=== PATIENT | male | born 1940 | race Caucasian/White ===

== ENCOUNTER 2018-01-30 04:12 | Emergency (ER) | payer MEDICARE, OTHER, SELFPAY ==
[2018-01-30] VITALS (7 sets, daily range): BP systolic 110–142; BP diastolic 55–78; PULSE 53–70; RESP 13–17; TEMP 36.4; O2SAT 97–99; BMI 25.7
--- NOTE | 2018-01-30 04:29 | ED.CHESTPAIN ---
HPI - Chest Pain General Chief Complaint: Chest Pain Stated Complaint: CHEST PAIN Time Seen by Provider: 01/30/18 04:13 Source: patient and family Mode of arrival: ambulatory Limitations: no limitations History of Present Illness HPI narrative: 77-year-old male with history of coronary artery disease status post 3 stents in May at [facility] presents with some left-sided chest discomfort that started while at rest at 9:00 p.m.. It was a vague in lingering pain without provocation or palliation and the patient went to sleep at about 11 30 and woke up at 3:15 a.m. with slightly more intense pain in left side of his chest. He denies associated symptoms such as dizziness or lightheadedness nor diaphoresis, nausea or vomiting. He describes the pain as a pressure and it feels like the pain he had when he was flown from [place] to [facility] in the fall. MD complaint: chest pain Onset (ago): hour(s) Duration: intermittent Onset: during rest Pain location: left chest Severity: moderate Quality: tightness Pain radiation: none Relieving factors: nothing Exacerbating factors: nothing Treatments prior to arrival chest pain: nitroglycerin Related Data Home Medications Medication Instructions Recorded Confirmed [PS] #0 09/22/12 Aspir-81 81 01/30/18 Previous Rx's Medication Instructions Recorded testosterone [Vogelxo] 0 TP QDAY #113 gm 09/18/16 omeprazole 20 mg PO BID #180 tab 11/04/16 triamterene-hydrochlorothiazid 1 tab PO QDAY #90 tab 12/10/16 Allergies Allergy/AdvReac Type Severity Reaction Status Date / Time hyaluronate sodium, Allergy Mild Verified 01/30/18 04:35 stabilized HYLAN POLYMERS A & B Allergy Mild INFLAMMATION Uncoded 01/30/18 04:20 OF THE KNEES Review of Systems Review of Systems All systems reviewed & are unremarkable except as noted in HPI and below Constitutional Denies chills, Denies fever(s), Denies lethargy and Denies weakness Eyes Denies change in vision, Denies eye discharge, Denies irritation and Denies loss of vision ENT Ears, Nose, Mouth, and Throat: Denies change in voice, Denies neck pain and Denies sore throat Cardiovascular Reports chest pain, Denies irregular heart rhythm, Denies lightheadedness, Denies palpitations, Denies dyspnea, Denies dyspnea on exertion and Denies orthopnea Respiratory Denies cough, Denies dyspnea, Denies dyspnea on exertion and Denies wheezing Gastrointestinal Gastrointestinal: Denies abdominal pain, Denies change in bowel habits, Denies diarrhea, Denies nausea and Denies vomiting Genitourinary Denies hematuria, Denies flank pain, Denies urinary incontinence and Denies urinary urgency Musculoskeletal Denies neck pain Integumentary/Breasts Denies pruritus, Denies erythema, Denies rash and Denies wounds Neurologic Denies confusion, Denies loss of vision and Denies weakness Psychiatric Denies anxiety, Denies confusion, Denies depression, Denies homicidal ideation and Denies suicidal ideation Endocrine Denies palpitations Hematologic/Lymphatic Denies easy bruising Allergic/Immunologic Denies wheezing PFSH Surgical History Status post appendectomy Status post hernia repair Exam Narrative Exam Narrative: 77-year-old male resting, mildly uncomfortable Initial Vital Signs Initial Vital Signs: Vital Signs Temperature 97.6 F 01/30/18 04:20 Pulse Rate 59 L 01/30/18 04:20 Respiratory Rate 13 01/30/18 04:20 Blood Pressure 126/57 H 01/30/18 04:20 Pulse Oximetry 98 01/30/18 04:20 Const General: cooperative and well developed Nutritional Appearance: well nourished Orientation: alert, awake, oriented x3 and not confused [facility] Head: normocephalic and atraumatic Ears: external ears normal and TM's normal bilaterally Nose: external nose normal and No nasal discharge Face and sinus: sinuses nontender, face symmetric, no sinus tenderness and No dry mucous membranes Mouth: oral mucosae normal and moist mucous membranes Teeth and gingiva: dentition normal Throat: tonsils normal and uvula midline Eyes General: appearance normal, both eyes and all related structures Eyelids: eyelids normal Conjunctivae: conjunctivae normal Sclera: sclerae normal Pupils: PERRL EOM: EOM intact bilaterally Neck Neck: normal visual inspection, trachea midline, No lymphadenopathy, No midline deformity and No JVD Lymphatic: No lymphedema Chest Chest: normal inspection of the chest Resp Effort & Inspection: normal respiratory effort, able to speak in complete sentences, no respiratory distress and no use of accessory muscles Auscultation: clear to auscultation bilaterally, no rales, no rhonchi and no wheezes Cardio Rate: bradycardic Rhythm: regular rhythm Heart Sounds: no click, no gallops, no murmurs and no rubs Pulses: normal peripheral pulses GI Inspection: non-distended Palpation: soft, no hepatosplenomegaly, No guarding, No pulsatile mass and No tender Auscultation: normal bowel sounds Back/Spine/Pelvis Back: No CVA tenderness Cervical Spine: cervical ROM normal and No pain with cervical ROM Thoracic/Lumbar Spine: thoracic and lumbar spine normal to inspection Skin General: no rashes or lesions noted, No jaundice and No petechiae Extrem General: full ROM, no clubbing, cyanosis or edema, no pedal edema and no calf tenderness Course Orders Ordered: Discontinued Medications Aspirin (Aspirin Chew) 324 mg PO NOW ONE Stop: 01/30/18 04:30 Last Admin: 01/30/18 04:55 Dose: 324 mg Heparin Sodium (Porcine) (Heparin) 5,000 unit 60 unit/kg (5000 unit) IV NOW ONE Stop: 01/30/18 06:31 Last Admin: 01/30/18 07:15 Dose: 5,000 unit Sodium Chloride (Normal Saline 0.9%) 1,000 mls @ 150 mls/hr IV CONT DIANN Last Admin: 01/30/18 04:55 Dose: 150 mls/hr Heparin Sodium/Dextrose (Heparin Drip) 25,000 unit in 500 mls @ 20.14 mls/hr IV CONT DIANN; Protocol Last Admin: 01/30/18 07:16 Dose: 12 units/kg/hr, 20.14 mls/hr Nitroglycerin (Nitrostat) 0.4 mg SL [id number] PRN PRN Reason: Chest Pain Last Admin: 01/30/18 04:59 Dose: 0.4 mg Reevaluation(s) Reevaluation #1: Patient states left-sided chest pressure starting to increase. Nitro and aspirin ordered. Repeat EKG ordered. Reevaluation #2: Patient reports some improvement with nitro, stating he is pretty much pain free Time: 05:09 Reevaluation #3: Patient pain-free. Heparin was and drip initiated. Ambulance to arrive at 7:20 a.m. Consultations Consultation #1: Dr. Esquivel ([facility]) happy to accept patient in transfer Vital Signs - 8 hr 01/30/18 04:20 01/30/18 04:59 01/30/18 05:25 Temperature 97.6 F Pulse Rate 59 L 70 55 L Respiratory Rate 13 Blood Pressure 126/57 H 110/58 L 115/55 L Blood Pressure [Left Arm] Pulse Oximetry 98 01/30/18 06:33 Temperature Pulse Rate 62 Respiratory Rate 14 Blood Pressure Blood Pressure [Left Arm] 136/57 H Pulse Oximetry 99 MDM - Chest Pain Differential Diagnosis Likely unstable angina pectoris, atypical chest pain, st elevation myocardial infarction, chest pain and biliary colic Medical Records Data Attestation: I reviewed the patient's medical records. Lab Data Attestation: I reviewed the patient's lab results. Result diagrams: 01/30/18 04:30 01/30/18 04:30 Lab Results 01/30/18 01/30/18 01/30/18 Range/Units 04:30 04:30 04:30 WBC 5.2 (4.5-11.0) X10^3/uL RBC 4.43 L (4.5-5.9) X10^6/uL Hgb 14.1 (13.5-17.5) g/dL Hct 40.4 L (41-53) % MCV 91.1 (80-100) fL MCH 31.9 (26-34) PG MCHC 35.0 (30-36) % RDW 13.4 (11.6-14.8) % Plt Count 152 (150-400) X10^3/uL Neut % (Auto) 61.8 (50-75) % Lymph % (Auto) 24.2 L (25-40) % [place] % (Auto) 8.6 (3-14) % Eos % (Auto) 4.5 H (2-4) % Baso % (Auto) 0.9 (0-2) % Neut # (Auto) 3200 (8602-1612) /uL PT 11.8 (10.1-12.7) SECONDS INR 1.1 (0.9-1.3) APTT 33 (26.4-36.2) SECONDS Sodium 142 (137-145) mmol/L Potassium 3.8 (3.4-5.1) mmol/L Chloride 104 (98-107) mmol/L Carbon Dioxide 27 (22-32) mmol/L BUN 12 (9-20) mg/dL Creatinine 0.60 L (0.66-1.25) mg/dL Estimated GFR > 60.0 (>60) mL/min BUN/Creatinine Ratio 20.0 (6-22) Glucose 108 (80-110) mg/dL Calcium 9.6 (8.4-10.2) mg/dL Total Bilirubin 0.6 (0.2-1.3) mg/dL AST 26 (17-59) IU/L ALT 33 (21-72) IU/L Alkaline Phosphatase 51 (38-126) U/L Total Creatine Kinase 157 (55-170) U/L CK-MB (CK-2) 3.54 H (<2.37) ng/mL CK-MB (CK-2) Rel Index 2.3 (1.5-5.0) % Troponin I < 0.012 (0.01-0.034) ng/mL Total Protein 6.8 (6.3-8.2) g/dL Albumin 4.2 (3.5-5.0) g/dL Globulin 2.6 (1.7-4.1) g/dL Albumin/Globulin Ratio 1.6 (1.0-2.8) Lipase 23 (23-300) U/L ECG Data Attestation: I personally reviewed and interpreted this ECG as follows: Prior ECG tracings: not available for review Interpretation: EKG1: Normal sinus rhythm with occasional PVCs. EKG2: Sinus rhythm 64, inverted Ts in III. Slight change in ST segment in lateral leads EKG3: unchanged Core Measures AMI core measures followed: Yes [facility] Narrative Medical decision making narrative: 77-year-old male with history of coronary artery disease presents with left-sided chest pain which started at rest and is reminiscent of prior pain that led to 3 stents. He is having increasing episodes of worsening pain while at rest. Chest pain largely has been controlled by nitro. EKGs do not show any ST elevations or obvious ischemia. First troponin normal. Call to Cardiology at [facility] and they agree this is a concerning story particularly given his cath results in May Critical Care Time Critical Care Time: Yes Total Critical Care Time: 35 Attestation: The high probability of a clinically significant, sudden or life threatening deterioration of the [cardiac] system(s) required my full and direct attention, intervention and personal management. The aggregate critical care time was [35] minutes. This time is in addition to time spent performing reported procedures but includes the following: [x] Data Review and interpretation [x] Patient assessment and monitoring of vital signs [x] Documentation [x] Medication orders and management Discharge Plan Departure Patient Disposition: [facility] Clinical Impression: ACS (acute coronary syndrome) Discharge Date/Time: 01/30/18 08:17 Interventions: ED Discharge Assessment Last Done: 01/30/18 07:30 Prescriptions: No Action [PS] Qty: 0 RF: 0 testosterone [Vogelxo] 1 % gel in metered-dose pump TP QDAY Qty: 113 RF: 0 omeprazole 20 MG capsule,delayed release(DR/EC) 20 mg PO BID Qty: 180 RF: 0 triamterene-hydrochlorothiazid 37.5 MG/25 MG tablet 1 tab PO QDAY Qty: 90 RF: 1 Aspir-81 tablet 81 RF: 0 Stand Alone Forms: Work/School Restrictions
--- NOTE | 2018-01-30 04:30 | DI.RAD.S_ITS ---
PROCEDURE: XR CHEST 1V INDICATIONS: Chest Pain TECHNIQUE: One view of the chest was acquired. COMPARISON: [facility]per, CHEST 2 VIEW, 04/25/2013, 13:44. FINDINGS: Surgical changes and devices: None. Lungs and pleura: No pleural effusions or pneumothorax. Lungs are clear. Mediastinum: Mediastinal contours appear normal. Heart size is normal. Bones and chest wall: No suspicious bony lesions. Overlying soft tissues appear unremarkable. IMPRESSION: No acute disease Dictated by: Lul Sharma M.D. on 01/30/2018 at 9:07 Approved by: Lul Sharma M.D. on 01/30/2018 at 9:08
[2018-01-30 04:54] LABS: Add Manual Diff / Slide Review NO; Basophils Percent Auto 0.9 % (0-2); Eosinophils Percent Auto 4.5 % (2-4); Hematocrit 40.4 % (41-53); Hemoglobin 14.1 g/dL (13.5-17.5); Lymphocytes Percent Auto 24.2 % (25-40); Mean Corpuscular Hemoglobin 31.9 PG (26-34); Mean Corpuscular Volume 91.1 fL (80-100); Monocytes Percent Auto 8.6 % (3-14); Neutrophils Absolute Auto 3200 /uL (3000-5900); Neutrophils Percent Auto 61.8 % (50-75); Platelet Count 152 X10^3/uL (150-400); Red Blood Cell Count 4.43 X10^6/uL (4.5-5.9); Red Cell Distribution Width 13.4 % (11.6-14.8); White Blood Cell Count 5.2 X10^3/uL (4.5-11.0)
[2018-01-30] MEDS: ASPIRIN 81 MG TAB 324 MG PO (04:55)
[2018-01-30] MEDS: SODIUM CHLORIDE 0.9% 1,000 ML 150 ML IV (04:55)
[2018-01-30] MEDS: NITROGLYCERIN 0.4 MG SL TAB SL (04:59)
[2018-01-30 05:04] LABS: Alanine Aminotransferase 33 IU/L (21-72); Albumin 4.2 g/dL (3.5-5.0); Albumin Globulin Ratio 1.6 (1.0-2.8); Alkaline Phosphatase 51 U/L (38-126); Aspartate Aminotransferase 26 IU/L (17-59); Bilirubin Total 0.6 mg/dL (0.2-1.3); Blood Urea Nitrogen 12 mg/dL (9-20); Calcium 9.6 mg/dL (8.4-10.2); Carbon Dioxide 27 mmol/L (22-32); Chloride 104 mmol/L (98-107); Creatine Kinase 157 U/L (55-170); Estimated Glomerular Filt Rate > 60.0 mL/min (>60); Globulin 2.6 g/dL (1.7-4.1); Glucose 108 mg/dL (80-110); HEMOLYSIS < 15 (0-50); Lipase 23 U/L (23-300); Potassium 3.8 mmol/L (3.4-5.1); Sodium 142 mmol/L (137-145); Total Protein 6.8 g/dL (6.3-8.2)
[2018-01-30 05:19] LABS: CKMB % Relative Index 2.3 % (1.5-5.0); Creatine Kinase MB 3.54 ng/mL (<2.37)
[2018-01-30 05:21] LABS: Troponin I < 0.012 ng/mL (0.01-0.034)
[2018-01-30 06:44] LABS: INR 1.1 (0.9-1.3); Prothrombin Time 11.8 SECONDS (10.1-12.7)
[2018-01-30 06:47] LABS: PTT Partial Thromboplastin Tim 33 SECONDS (26.4-36.2)
[2018-01-30] MEDS: HEPARIN 5,000 UNIT/ML VIAL 5000 UNIT IV (07:15)
[2018-01-30] MEDS: HEPARIN DRIP 25,000 UNIT/500 ML IV.SOLN 20.14 UNIT IV (07:16)
--- NOTE | 2018-04-11 01:42 | PC.NURSE ---
Heparin and normal saline continued on transport
== END 2018-01-30 08:17 | disposition short-term general hospital (02) ==
PROVIDERS: Emergency Provider Emergency Medicine
DX: I24.9 Acute ischemic heart disease, unspecified (principal)
CPT/HCPCS: 36591; 71045; 80053; 82550; 82553; 83690; 84484; 85025; 85610; 85730; 93005; 96361; 96365; 99283; 99285; J1644

== ENCOUNTER → 2019-07-28 09:33 | Outpatient (CLI) | payer MEDICARE, OTHER, SELFPAY ==
[2019-07-28 11:07] LABS: BUN Creatinine Ratio 32.2 (6-22); Blood Urea Nitrogen 29 mg/dL (9-20); Calcium 10.3 mg/dL (8.4-10.2); Carbon Dioxide 31 mmol/L (22-32); Chloride 101 mmol/L (98-107); Estimated Glomerular Filt Rate > 60.0 mL/min (>60); Glucose 97 mg/dL (80-110); HEMOLYSIS < 15 (0-50); Potassium 4.8 mmol/L (3.4-5.1); Sodium 140 mmol/L (137-145)
== END ==
PROVIDERS: Visit Provider Internal Medicine Cardiovascular Disease
DX: I10 Essential (primary) hypertension (principal)
CPT/HCPCS: 36415; 80048

== ENCOUNTER → 2019-08-11 09:08 | Outpatient (CLI) | payer MEDICARE, OTHER, SELFPAY ==
--- NOTE | 2019-08-11 09:13 | DI.RAD.S_ITS ---
PROCEDURE: XR LUMBAR SPINE 2-3V INDICATIONS: right sciatic pain TECHNIQUE: 3 views of the lumbar spine were acquired. COMPARISON: None. FINDINGS: Bones: 5 nonrib-bearing, lumbar type vertebral bodies are seen. No displaced fractures are seen. No suspicious lytic or blastic lesions are seen. Mild retrolisthesis is seen at L1-L2 and at L2-L3. Minimal retrolisthesis is seen at L3-L4. Minimal anterolisthesis is seen at L4-L5. Grade 1 anterolisthesis is seen at L5-S1, with associated bilateral pars defects. Moderate disc space narrowing is seen at L2-L3 and L5-S1. Mild disc space narrowing is seen elsewhere. Lower lumbar spine facet arthropathy is seen. Soft tissues: Overlying bowel gas pattern is normal. No suspicious soft tissue calcifications. Atherosclerotic calcification is noted. Right groin sutures are seen. IMPRESSION: Degenerative changes are seen, which are most prominent at L5-S1. At this level, there is grade 1 anterolisthesis, with bilateral L5 pars defects. Moderate loss of disc height is seen. Dictated by: Carlos Elkins M.D. on 08/11/2019 at 8:46 Approved by: Carlos Elkins M.D. on 08/11/2019 at 8:48
== END ==
PROVIDERS: PCP Internal Medicine; Visit Provider Registered Nurse
DX: M47.816 Spondylosis without myelopathy or radiculopathy, lumbar region (principal); M47.817 Spondylosis without myelopathy or radiculopathy, lumbosacral region; M48.061 Spinal stenosis, lumbar region without neurogenic claudication; M43.17 Spondylolisthesis, lumbosacral region; M54.41 Lumbago with sciatica, right side
CPT/HCPCS: 72100; 99214

== ENCOUNTER 2019-12-27 00:38 | Inpatient (IN) | payer MEDICARE, OTHER, SELFPAY ==
[2019-12-27] VITALS (34 sets, daily range): BP systolic 121–177; BP diastolic 50–81; PULSE 14–85; RESP 12–21; TEMP 36.2–37.2; O2SAT 93–100; BMI 25.4
--- NOTE | 2019-12-27 | PATH_ITS ---
[facility] Accession Number: [id number] . 01 Material submitted: . small bowel - SEGMENT SMALL BOWEL . 01 Clinical history: . POSSIBLE SOB . 02 Diagnosis: Small Bowel, Resection: Acute ischemia with transmural congestion. Negative for dysplasia and malignancy. Resection margins appear viable. . MRV 12/29/2019 1529 Local . 02 Electronically signed: . Eula Tellez MD, Pathologist NPI- [id number] . 01 Gross description: . Received in formalin, labeled segment small bowel, is an unoriented segment of small bowel (length-9.2 cm, resection margins #1 and #2 diameters-2.3 cm) with attached mesentery (up to 2.3 cm in depth). The resection margins are received stapled. The serosa is adams and focally dark red-brown, smooth and shiny. The mucosa is adams and focally congested with normal folds. No nodules, masses or lesions are identified. The resection margins are inked blue. Section code: (A1) resection margin #1, longitudinal representatives; (A2) resection margin #2, longitudinal representatives; (A3-A6) solar sales representative serial sections submitted from resection margin #1 to #2. ([id number]) /MRV 12/28/2019 1003 Local . 02 Pathologist provided ICD-10: K55.019 . 02 CPT . 521172 Performed at: 01 [facility] [address] [place] [address], [place], [place] [id number] MD Da Moore MD Phone: [phone] Performed at: 02 [facility] [address] [place], [place] [id number] Alberto Tellez MD Phone: [phone]
--- NOTE | 2019-12-27 00:45 | DI.RAD.S_ITS ---
PROCEDURE: XR ACUTE ABDOMEN SERIES INDICATIONS: Abdominal pain TECHNIQUE: One view chest and two views of the abdomen were acquired. COMPARISON: [facility], CR, XR CHEST 1V, 01/30/2018, 4:35. [facility], CT, CT ABDOMEN PELVIS W CON, 12/27/2019, 1:21. FINDINGS: Surgical changes and devices: None. Chest: Lungs are clear. Heart size is normal. No pleural effusions. No pneumoperitoneum. Abdomen: There is mild gaseous distention of a few small bowel loops, measuring up to 3.5 cm. A few small bowel air-fluid levels are demonstrated within the lower abdomen. No suspicious calcifications. Bones: No suspicious bony lesions. IMPRESSION: 1. Mild distention of small bowel loops with air-fluid levels suggestive of small bowel obstruction. Recommend correlation with subsequent CT. Dictated by: Da River M.D. on 12/27/2019 at 9:41 Approved by: Da River M.D. on 12/27/2019 at 9:45
--- NOTE | 2019-12-27 01:07 | ED_ITS ---
HPI - Abdominal Pain General Chief Complaint: Abdominal Pain Stated Complaint: Poss SBO Time Seen by Provider: 12/27/19 00:38 Source: EMS Mode of arrival: EMS Limitations: no limitations History of Present Illness HPI narrative: 79M nonsmoker with cardiac history presents with the chief complaint of severe, rather sudden abdominal pain this evening at about 930pm. He states he does have a history of what he thinks are bowel obstructions. He has had surgery on his abdomen before including a left inguinal hernia and his appendix. He states he has had nausea and vomiting and has been unable to pass gas. His pain is significantly worse when he moves and improves with rest. He was evaluated on scene by paramedics on [place] and given fentanyl and Zofran. Airlift was activated to transport him here for evaluation. He denies any fever or chills. He denies any recent injuries, falls or trauma. MD complaint: abdominal pain Onset (ago): hour(s) Pain Consistency: constant Location: diffuse Severity: severe Quality: cramping and aching Radiation: none Relieving factors: rest Exacerbating factors: movement Associated symptoms: nausea and vomiting Related Data Home Medications Medication Instructions Recorded Confirmed [PS] #0 09/22/12 09/07/19 Aspir-81 81 01/30/18 09/07/19 lisinopril 10 mg tablet 10 mg PO DAILY 08/11/19 09/07/19 metoprolol tartrate 25 mg tablet 12.5 mg PO DAILY tab 08/11/19 09/07/19 Previous Rx's Medication Instructions Recorded triamterene-hydrochlorothiazid 1 tab PO QDAY #90 tab 12/10/16 diclofenac sodium 1 % topical gel 2 g TOP QID #100 gram MDD 8 gm 08/11/19 Allergies Allergy/AdvReac Type Severity Reaction Status Date / Time hyaluronate sodium, Allergy Mild Verified 12/27/19 00:47 stabilized HYLAN POLYMERS A & B Allergy Mild INFLAMMATION Uncoded 12/27/19 00:47 OF THE KNEES Review of Systems Constitutional Constitutional: Denies chills, Denies fatigue, Denies fever(s), Denies frequent falls, Denies lethargy and Denies weakness Eyes Eyes: Denies change in vision, Denies eye discharge, Denies irritation and Denies loss of vision ENT Ears, Nose, Mouth, and Throat: Denies change in voice, Denies dizziness, Denies neck pain, Denies sore throat and Denies throat swelling Cardiovascular Cardiovascular: Denies chest pain, Denies irregular heart rhythm, Denies lightheadedness, Denies palpitations, Denies dyspnea, Denies dyspnea on exertion and Denies orthopnea Respiratory Respiratory: Denies cough, Denies dyspnea, Denies dyspnea on exertion and Denies wheezing Gastrointestinal Gastrointestinal: Reports abdominal pain, Denies change in bowel habits, Denies diarrhea, Reports nausea and Reports vomiting Musculoskeletal Musculoskeletal: Denies neck pain and Denies numbness Integumentary/Breasts Skin/Breast: Denies pruritus, Denies erythema, Denies rash and Denies wounds Neurologic Neurologic: Denies behavioral changes, Denies confusion, Denies dizziness, Denies frequent falls, Denies loss of vision, Denies numbness and Denies weakness Psychiatric Psychiatric: Denies anxiety, Denies behavioral changes, Denies confusion, Denies depression, Denies homicidal ideation and Denies suicidal ideation Endocrine Endocrine: Denies fatigue, Denies flushing and Denies palpitations Hematologic/Lymphatic Hematologic/Lymphatic: Denies easy bruising Allergic/Immunologic Allergic/Immunologic: Denies urticaria, Denies throat swelling and Denies wheezing Patient History Medical History Facet arthropathy, 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 Well- nourished, well-developed patient, in mild distress. HEAD: Atraumatic. Normocephalic. EYES: Pupils equal round and reactive. Extraocular motions intact. No scleral icterus. No injection or drainage. ENT: Nose without bleeding, purulent drainage. Throat without erythema, tonsillar hypertrophy or exudate. Airway patent. NECK: Trachea midline. Non tender CARDIOVASCULAR: Regular rate and rhythm without murmurs, gallops, or rubs. RESPIRATORY: Clear to auscultation. Breath sounds equal bilaterally. No wheezes, rales, or rhonchi. GASTROINTESTINAL: Abdomen soft, significantly tender with a palpable ?bulge? and right lower quadrant, localized guarding, nondistended. EXTREMITIES: No edema or joint tenderness. BACK: Nontender without deformity or crepitance. No flank tenderness. NEURO: AOx3. SKIN: No rash or erythema of visible areas Initial Vital Signs Initial Vital Signs: Vital Signs Temperature 97.2 F L 12/27/19 00:43 Pulse Rate 58 L 12/27/19 00:43 Respiratory Rate 16 12/27/19 00:43 Blood Pressure 175/81 H 12/27/19 00:43 Pulse Oximetry 98 12/27/19 00:43 Course Orders Ordered: ED Orders 12/27/19 00:45 XR acute abdomen series Stat 12/27/19 01:24 Complete Blood Count AUTO DIFF Stat Comprehensive Metabolic Panel Stat Lipase Stat 12/27/19 02:11 CT abdomen pelvis w con Stat 12/27/19 02:59 Urine Microscopic Stat Sodium Chloride (Normal Saline 0.9%) 1,000 mls @ 150 mls/hr IV CONT DIANN Last Infusion: 12/27/19 01:21 Dose: 150 mls/hr Documented by: Admin: 12/27/19 01:18 Dose: 150 mls/hr Documented by: RYAN Discontinued Medications Ondansetron HCl (Zofran) 4 mg IV NOW ONE Stop: 12/27/19 00:45 Last Admin: 12/27/19 01:18 Dose: 4 mg Documented by: RYAN Vital Signs Vital signs: Vital Signs - 8 hr 12/27/19 00:43 12/27/19 01:01 12/27/19 01:30 Temperature 97.2 F L Pulse Rate 58 L 64 66 Respiratory Rate 16 17 17 Blood Pressure 175/81 H Blood Pressure [Left Arm] 176/74 H 147/65 H Pulse Oximetry 98 93 94 12/27/19 02:16 12/27/19 02:30 Temperature Pulse Rate 72 64 Respiratory Rate 17 17 Blood Pressure Blood Pressure [Left Arm] 158/70 H 168/70 H Pulse Oximetry 98 94 MDM - Abdominal Pain Lab Data Result diagrams: 12/27/19 01:24 12/27/19 01:24 Labs: Lab Results 12/27/19 12/27/19 12/27/19 Range/Units 01:24 01:24 02:59 WBC 8.6 (4.5-11.0) X10^3/uL RBC 4.49 L (4.5-5.9) X10^6/uL Hgb 14.1 (13.5-17.5) g/dL Hct 40.9 L (41-53) % MCV 91.1 (80-100) fL MCH 31.4 (26-34) PG MCHC 34.5 (30-36) % RDW 13.6 (11.6-14.8) % Plt Count 130 L (150-400) X10^3/uL Neut % (Auto) 84.9 H (50-75) % Lymph % (Auto) 8.9 L (25-40) % [place] % (Auto) 4.5 (3-14) % Eos % (Auto) 1.1 L (2-4) % Baso % (Auto) 0.6 (0-2) % Neut # (Auto) 7300 H (2491-7360) /uL Lymph # (Auto) 800 L (4172-4654) /uL [place] # (Auto) 400 (0-900) /uL Eos # (Auto) 100 (0-450) /uL Baso # (Auto) 100 (0-100) /uL Sodium 137 (137-145) mmol/L Potassium 4.0 (3.4-5.1) mmol/L Chloride 104 (98-107) mmol/L Carbon Dioxide 27 (22-32) mmol/L BUN 21 H (9-20) mg/dL Creatinine 0.77 (0.66-1.25) mg/dL Estimated GFR > 60.0 (>60) mL/min BUN/Creatinine Ratio 27.3 H (6-22) Glucose 145 H (80-110) mg/dL Calcium 9.5 (8.4-10.2) mg/dL Total Bilirubin 0.5 (0.2-1.3) mg/dL AST 27 (17-59) IU/L ALT 20 (<50) IU/L Alkaline Phosphatase 51 (38-126) U/L Total Protein 7.0 (6.3-8.2) g/dL Albumin 4.2 (3.5-5.0) g/dL Globulin 2.8 (1.7-4.1) g/dL Albumin/Globulin Ratio 1.5 (1.0-2.8) Lipase 47 (23-300) U/L Urine RBC None seen (0-5/HPF) Urine WBC None seen (0-5/HPF) Amorphous Sediment 1+ Urine Bacteria None seen (None) Urine Mucus 1+ H (Negative) Ur Culture Indicated? Cult not indicated Point of care testing: Urine Dip Bedside Urine Glucose Negative Bedside Urine Bilirubin - Negative Bedside Urine Ketone + 15 Urine Specific [place] 1.015 Bedside Urine Occult Blood - Negative Bedside Urine pH 6.5 Bedside Urine Protein + 30 Bedside Urine Urobilinogen +/- 1mg Bedside Urine Nitrite - Negative Imaging Data CT scan - abdomen/pelvis: Attestation: I personally reviewed and interpreted this imaging study as follows: My Impression: incisional hernia RLQ with possible SBO Radiologist's Impression: same Discharge Plan Departure Patient Disposition: Admitted as Observation Clinical Impression: Incarcerated incisional hernia Admit Date/Time: 12/27/19 03:16 Admit Provider: Hipolito Montenegro
[2019-12-27] MEDS: ONDANSETRON 4 MG/2 ML INJ IV ×3 (01:18→06:56)
[2019-12-27] MEDS: SODIUM CHLORIDE 0.9% 1,000 ML 150 ML IV (01:18)
[2019-12-27 01:38] LABS: Add Manual Diff / Slide Review NO; Basophils Absolute Auto 100 /uL (0-100); Basophils Percent Auto 0.6 % (0-2); Eosinophils Absolute Auto 100 /uL (0-450); Eosinophils Percent Auto 1.1 % (2-4); Hematocrit 40.9 % (41-53); Hemoglobin 14.1 g/dL (13.5-17.5); Lymphocytes Absolute Auto 800 /uL (1100-4500); Lymphocytes Percent Auto 8.9 % (25-40); Mean Corpuscular HGB Conc 34.5 % (30-36); Mean Corpuscular Hemoglobin 31.4 PG (26-34); Mean Corpuscular Volume 91.1 fL (80-100); Monocytes Absolute Auto 400 /uL (0-900); Monocytes Percent Auto 4.5 % (3-14); Neutrophils Absolute Auto 7300 /uL (1500-7000); Neutrophils Percent Auto 84.9 % (50-75); Platelet Count 130 X10^3/uL (150-400); Red Blood Cell Count 4.49 X10^6/uL (4.5-5.9); Red Cell Distribution Width 13.6 % (11.6-14.8); White Blood Cell Count 8.6 X10^3/uL (4.5-11.0)
[2019-12-27 01:44] LABS: Alanine Aminotransferase 20 IU/L (<50); Albumin 4.2 g/dL (3.5-5.0); Albumin Globulin Ratio 1.5 (1.0-2.8); Alkaline Phosphatase 51 U/L (38-126); Aspartate Aminotransferase 27 IU/L (17-59); BUN Creatinine Ratio 27.3 (6-22); Bilirubin Total 0.5 mg/dL (0.2-1.3); Blood Urea Nitrogen 21 mg/dL (9-20); Calcium 9.5 mg/dL (8.4-10.2); Carbon Dioxide 27 mmol/L (22-32); Chloride 104 mmol/L (98-107); Estimated Glomerular Filt Rate > 60.0 mL/min (>60); Globulin 2.8 g/dL (1.7-4.1); Glucose 145 mg/dL (80-110); HEMOLYSIS < 15 (0-50); Lipase 47 U/L (23-300); Sodium 137 mmol/L (137-145)
--- NOTE | 2019-12-27 02:11 | DI.CT.S_ITS ---
PROCEDURE: CT ABDOMEN PELVIS W CON INDICATIONS: severe right lower quadrant pain, hernia or obstruction? TECHNIQUE: After the administration of intravenous contrast, 5 mm thick sections acquired from the diaphragm to the symphysis. 5 mm coronal and sagittal reformats were acquired. For radiation dose reduction, the following was used: automated exposure control, adjustment of mA and/or kV according to patient size. COMPARISON: None. FINDINGS: Image quality: Excellent. ABDOMEN: Lung bases: There is mild atelectasis. Heart size is normal. There is a small hiatal hernia. Solid organs: There is a lobulated cyst within the left hepatic lobe as well as multiple additional small low-density foci throughout the liver which are too small to characterize but likely represent cysts. There is a calcified gallstone measuring up to 1.8 cm in the gallbladder without associated wall thickening or pericholecystic fluid. Biliary system is non-dilated. Pancreas enhances normally. No peripancreatic fat stranding or fluid collections. No pancreatic duct dilatation. The spleen is normal in size. There is a small nonspecific cystic lesion anteriorly in the spleen measuring up to 2.0 cm. No adrenal nodules. Kidneys demonstrate no hydronephrosis. Focal cortical thinning is demonstrated in the superior pole of the left kidney. Peritoneum and bowel: There is fluid distention of multiple small bowel loops, measuring up to 3.1 cm in diameter with associated air-fluid levels. There is a transition point associated with a right lower quadrant spigelian hernia along the semilunar line lateral to the rectus abdominis muscle. This contains a short segment of small bowel with slight bowel wall thickening and a small amount of free fluid in the hernia sac. Distal to the hernia, small bowel loops are nondistended. A small diverticulum of the descending portion of the duodenum is noted. The colon is normal in caliber and wall thickness. There is colonic diverticulosis without acute diverticulitis. No intraperitoneal free fluid or free air. Nodes and vessels: No retroperitoneal or mesenteric adenopathy by size criteria. Aorta and inferior vena cava are normal in size. Miscellaneous: As noted above, there is a right ventral abdominal wall hernia demonstrated lateral to the rectus abdominis muscle and medial to the external and internal oblique muscles along the semilunar line. Findings are consistent with a spigelian hernia. PELVIS: Genitourinary: Bladder wall thickness is normal. There is mild heterogeneous enlargement of the prostate. Miscellaneous: No inguinal hernias or adenopathy. Bones: No suspicious bony lesions. No vertebral body compression fractures. IMPRESSION: 1. Small bowel obstruction associated with a short herniated segment of small bowel within a right lower quadrant spigelian hernia. Mild bowel wall thickening within the hernia sac associated with a small amount of free fluid is suggestive of bowel incarceration or developing strangulation. Otherwise no intraperitoneal free fluid or free air. No evidence of pneumatosis. 2. Cholelithiasis without acute cholecystitis. Concordant with preliminary interpretation. Dictated by: Da River M.D. on 12/27/2019 at 8:00 Approved by: Da River M.D. on 12/27/2019 at 8:12
[2019-12-27 03:00] LABS: Bacteria Urine None Seen; RBC Urine None Seen (0-5/HPF); WBC Urine None Seen (0-5/HPF)
--- NOTE | 2019-12-27 03:20 | P.HP_ITS ---
History of Present Illness History of Present Illness Date Patient Seen: 12/27/19 Time Patient Seen: 03:20 Chief complaint: Poss SOB Narrative: 79-year-old male presents to the emergency room by air ambulance for acute onset of abdominal pain. He developed a bulge and sharp pain of his right flank over his previous appendectomy incision 6 hours ago. He underwent a CT abdomen pelvis that demonstrates incarcerated small bowel within the hernia and assoicated small bowel obstruction. WBC 9, afebrile. He denies nausea or vomiting. In the emergency room despite pain medication the hernia can not be reduced. Past medical history is significant for coronary artery disease, HTN, has several coronary stents from 3 years ago no active chest pain or shortness of breath. He is not on anticoagulation and a non smoker.. Patient History Medical History Facet arthropathy, lumbar (Chronic) Foraminal stenosis of lumbar region (Chronic) Surgical History Status post appendectomy Status post hernia repair Family & Social History Family History Mother Breast implant removal status Safety & Behavioral: Feels Safe in Current Yes Environment Been Physically Hurt or No Threatened By a Person Tobacco & Substance use: Smoking Status Never smoker Substance Use Type does not use Meds Home Medications and Allergies Home Medications Medication Instructions Recorded Confirmed Type [PS] #0 09/22/12 09/07/19 History triamterene-hydrochlorothiazid 1 tab PO QDAY #90 tab 12/10/16 09/07/19 Rx Aspir-81 81 01/30/18 09/07/19 History diclofenac sodium 1 % topical gel 2 g TOP QID #100 gram MDD 8 gm 08/11/19 09/07/19 Rx lisinopril 10 mg tablet 10 mg PO DAILY 08/11/19 09/07/19 History metoprolol tartrate 25 mg tablet 12.5 mg PO DAILY tab 08/11/19 09/07/19 History Allergies Allergy/AdvReac Type Severity Reaction Status Date / Time hyaluronate sodium, Allergy Mild Verified 12/27/19 00:47 stabilized HYLAN POLYMERS A & B Allergy Mild INFLAMMATION Uncoded 12/27/19 00:47 OF THE KNEES Review of Systems Review of Systems Narrative: A 10 point review of systems is negative except as noted in the HPI Exam Vital Signs (past 8 hours): - 12/27/19 00:43 12/27/19 01:01 12/27/19 01:30 Temperature 97.2 F L Pulse Rate 58 L 64 66 Respiratory Rate 16 17 17 Blood Pressure 175/81 H Blood Pressure [Left Arm] 176/74 H 147/65 H Pulse Oximetry 98 93 94 12/27/19 02:16 12/27/19 02:30 Temperature Pulse Rate 72 64 Respiratory Rate 17 17 Blood Pressure Blood Pressure [Left Arm] 158/70 H 168/70 H Pulse Oximetry 98 94 Oxygen Delivery Method Room Air Narrative Exam Narrative: General-no acute distress, well nourished HEENT-moist mucous membranes, no scleral icterus Neck-supple, no lymphadenopathy Chest- non labored respirations, clear to auscultation bilaterally Cardiac-regular rate no peripheral edema Abdomen-right open appendectomy incision with a palpable hernia tender to palpation unable to manually reduce Extremities-warm, well perfused Neurological-alert and oriented, no focal deficits Objective Labs Result Diagrams: 12/27/19 01:24 12/27/19 01:24 Labs: Laboratory Results - last 24 hr 12/27/19 12/27/19 01:24 01:24 WBC 8.6 RBC 4.49 L Hgb 14.1 Hct 40.9 L MCV 91.1 MCH 31.4 MCHC 34.5 RDW 13.6 Plt Count 130 L Neut % (Auto) 84.9 H Lymph % (Auto) 8.9 L [place] % (Auto) 4.5 Eos % (Auto) 1.1 L Baso % (Auto) 0.6 Neut # (Auto) 7300 H Lymph # (Auto) 800 L [place] # (Auto) 400 Eos # (Auto) 100 Baso # (Auto) 100 Sodium 137 Potassium 4.0 Chloride 104 Carbon Dioxide 27 BUN 21 H Creatinine 0.77 Estimated GFR > 60.0 BUN/Creatinine Ratio 27.3 H Glucose 145 H Calcium 9.5 Total Bilirubin 0.5 AST 27 ALT 20 Alkaline Phosphatase 51 Total Protein 7.0 Albumin 4.2 Globulin 2.8 Albumin/Globulin Ratio 1.5 Lipase 47 Assessment & Plan Assessment & Plan narrative: 79-year-old man with an acutely incarcerated incisional hernia through a prior open appendectomy incision. Hernia is tender on exam, I am unable to reduce it. I reviewed his CT abdomen pelvis which demonstrates incarcerated small bowel within the hernia. I told him he has an incisional hernia containing small bowel and the intestine is at risk of ischemia and perforation if the hernia is not urgently repaired. I recommended that we proceed to the operating room for an exploratory laparotomy through his previous appendectomy incision and repair of the hernia possibly with mesh. I told him that there is possibility of intestinal resection and if this occurs I may not be able to use mesh in his hernia repair. We discussed the technical nature of the operation the associated risks of bleeding infection intestinal d amage hernia recurrence. His questions have been answered he is in agreement with this plan.
[2019-12-27 03:26] LABS: Amorphous Sediment Urine 1+; Culture Indicated Urine Cult Not Indicated; Mucus Urine 1+ (Negative)
[2019-12-27] MEDS: HYDROMORPHONE 0.5 MG INJ IV (04:07)
[2019-12-27] MEDS: CEFAZOLIN 2 GM/100 ML FROZ.PIGGY IV (04:08)
--- NOTE | 2019-12-27 05:03 | SUR.OPER ---
Supine on padded OR bed, head on pillow, arms secured on padded arm boards at <90 degrees abduction, legs uncrossed, safety belt at thigh, tape over blanket over lower legs.
[2019-12-27 05:06] LABS: COVID19 -Nasal RAPID Negative (Negative)
--- NOTE | 2019-12-27 06:18 | P.OP_ITS ---
Operative Date/Time/Diagnoses Date of procedure: 12/27/19 Time of procedure: 06:18 Pre-op diagnosis: Incarcerated incisional hernia Post-op diagnosis: same Procedure & Clinicians Procedure: Exploratory laparotomy, enterectomy, repair of incisional hernia Same procedure as scheduled: Yes Indications: 79-year-old man presented with an acutely incarcerated incisional hernia through a prior open active appendectomy incision. Surgeon: Hipolito Montenegro Click Yes if Unassisted: Yes Anesthesia Type: General Operative Notes Findings: Necrotic small bowel within the incarcerated incisional hernia Specimen(s): other (Small-bowel) Estimated Blood Loss (mL): 50 Procedure in detail: Patient was brought to the operating room and placed supine on the table. Bilateral lower extremity compression devices were applied. He received Ancef prior to skin incision. General anesthesia was induced he was intubated with a endotracheal tube. He was then prepped and draped in sterile fashion as well as a [place] catheter was sterilely placed. A time-out was performed ensure the correct patient procedure necessary equipment within the operating room. I made a skin incision through the prior appendectomy scar in the right lower quadrant. The subcutaneous tissues were carefully divided with electrocautery. The external the oblique was opened using sharp dissection. The hernia and its associated sac was encountered through the external oblique. I opened the hernia sac carefully using and [place] there was a knuckle of small bowel that was frankly necrotic. It was not perforated. I a open the incisional hernia defect above and below and was able to mobilize the small bowel out through the hernia defect. Inspection of the small bowel demonstrated there was an area of approximately 10 cm that was frankly necrotic the remainder of the bowel proximal and distal to this were viable. I performed an entrectomy and [id number]-bk-mcyw anastomosis. A window within the mesentery to the small bowel was made and the small bowel was then resected using the MICHELLE stapler blue load. The mesentery to the associated enterectomy was taken with the LigaSure. A a silk suture 3 0 was used to approximate the small bowel in a aghn-fj-oyga fashion at the crotch. Enterotomy was made in both limbs of the bowel and then a gbjx-pz-ijuh anastomosis was formed by using the Endo-MICHELLE stapler to form a common channel. Internal inspection of the anastamosis demonstrated it was patent and hemostatic. The common opening was then closed in a running fashion using 3 0 PDS. External inspected of the anastomosis demonstrated that it was hemostatic as well as widely patent and without leak. I then closed the mesenteric defect to the resection using a running 3 0 silk suture. Satisfied with the anastomosis returned the small bowel to the abdomen and copiously irrigated. We then changed to a clean closure set and our gown and gloves were changed. Because the field was contaminated I elected to use no mesh in the closure of the hernia defect. I closed the external oblique incisional hernia using interrupted Ethibond suture. The subcutaneous tissues were then reapproximated using 3 0 Vicryl suture the skin closed with ara. Patient tolerated procedure well. He was extubated and transferred to recovery room in stable condition. Complications: none Post-operative Condition: stable Disposition: Acute Care
[2019-12-27] MEDS: LACTATED RINGERS 1,000 ML 42 ML IV (06:29)
[2019-12-27] MEDS: fentaNYL 100 MCG/2 ML INJ IV ×2 (06:49→07:46)
--- NOTE | 2019-12-27 07:11 | SUR.PHASEI ---
0700 patient remains nauseated and vomits into emesis bag. Administered a second dose of zofran. Changed all linen and provided fresh gown. cool cloth to forehead.
--- NOTE | 2019-12-27 07:18 | SUR.PHASEI ---
Patient continues to be nauseated. Notified Dr Talamantes. Reglan IV ordered. Patient denies pain.
[2019-12-27] MEDS: METOCLOPRAMIDE 10 MG/2 ML INJ IV (07:25)
--- NOTE | 2019-12-27 07:48 | SUR.PHASEI ---
Patient states that he still feels sick but no emesis since Reglan. Aromatherapy attempted. .
[2019-12-27] MEDS: PIPERACILLIN-TAZO 3.375 GM/50 ML FROZ.PIGGY IV ×2 (09:31→20:36)
[2019-12-27] MEDS: SODIUM CHLORIDE 0.9% 1,000 ML 100 ML IV ×2 (10:00→20:41)
--- NOTE | 2019-12-27 11:53 | PC.NURSE ---
Addendum entered by Orquidea Jain R.N. 12/27/19 13:37: Patient has been nausea free, started on clear liquids and has tolerated well. He just took all his po medication and states that he does not use voltaran cream. He is going to work with physical therapy now. Original Note: Patient back to floor this morning at 0820. He is groggy but A&Ox3. Patient had significant nausea down in the PACU but that has resolved at this time. He has a dressing to his l.lower side that has a small amount of ss drainage. Patients bowel tones are hypoactive but present. His abdomen is soft and nontender. On NS at 100cc/hr. Have asked him his pain level several times and he states that it is at a 2.5/10. He has been tolerating ice chips. This Rn will try to give him his medications a bit later as he is only taking ice chips. Napping now and scds off at this time.
[2019-12-27] MEDS: lisinopriL 10 MG TABLET PO (13:28)
[2019-12-27] MEDS: METOPROLOL IR 25 MG TABLET 12.5 MG PO (13:28)
[2019-12-27] MEDS: TRIAMTERENE/HCTZ 37.5/25 TABLET 1 CAP PO (13:33)
--- NOTE | 2019-12-27 15:22 | PT.IIE ---
Surgery Performed Operation Date: 12/27/19 04:05 Actual Procedures p Exploratory Laparotomy GEN, SMALL BOWEL RESECTION, REPAIR INCISIONAL HERNIA(Not Applicable) - Hipolito Montenegro MD Surgical History (Last Reviewed 12/27/19 @ 03:24 by Hipolito Montenegro MD) Status post appendectomy Status post hernia repair Medical History (Last Reviewed 12/27/19 @ 03:24 by Hipolito Montenegro MD) Facet arthropathy, lumbar (Chronic) Foraminal stenosis of lumbar region (Chronic) Physical Therapy Inpatient Evaluation/Re-Eval M1 PT/OT-IP Prior Functional Status Start: 12/27/19 09:16 Freq: NEEDED Status: Active Protocol: Document 12/27/19 14:56 AW (Rec: 12/27/19 15:22 AW [id number]) Medical Review Prior Functional Status Medical History Reviewed Yes Communication WNL; Pt is an effective verbal communicator Mobility and Gait Pt is active and independent without assistive device. He regularly gardens and chops firewood to heat his home. Activities of Daily Living and IADL's Independent Social History Household Members spouse Living Arrangements House Number of Floors (Floors) Two Floors Number of Stairs To Enter/Railing? Level entrance to main level at back door which is the patient's typical entrance. 15 steps up with left rail ascending to the second level to access the bedroom. Home Environment Standard Height Toilet,Walk in Shower Home Equipment Hospital Bed,Grab Bars In Shower Employment Status Retired Additional Social History Comment Pt lives on [address] with his spouse, Carolyn, who is available and able to assist as needed. M2 PT-IP Current Condition Start: 12/27/19 09:16 Freq: NEEDED Status: Active Protocol: Document 12/27/19 14:56 AW (Rec: 12/27/19 15:22 AW [id number]) Physical Therapy Current Condition Current Condition Evaluation Date 12/27/19 Treatment Diagnosis s/p exp lap; impaired mobility Onset Date 12/26/19 Precautions Abdominal Surgery Precautions Log Roll,Lifting Restrictions, Gait Belt above Incisional Area Weight Bearing Status Weight Bearing Status Full Weight Bearing M3 PT-IP Subjective Start: 12/27/19 09:16 Freq: NEEDED Status: Active Protocol: Document 12/27/19 14:56 AW (Rec: 12/27/19 15:22 AW [id number]) Subjective Physical Therapy Visit Type Type Initial Evaluation Visit Start Time 13:43 Visit Stop Time 14:11 Total Visit Minutes 28 Physical Therapy Visit Comments Patient Comments You're not dealing with the kids in the park. Pt is wanting to get up for a walk. Patient Goals Pt plans to return home to [place] with his assisting as needed. Therapy Pain Assessment Pain When Pain Assessed During Mobility Pain Present Pain Present Pain Reported Location Abd Intensity 2 Scale Used Numeric (0 - 10) Pain Management Techniques Re-positioning,Timing of Activity with Medications M4 PT-IP Mobility and Gait Start: 12/27/19 09:16 Freq: NEEDED Status: Active Protocol: Document 12/27/19 14:56 AW (Rec: 12/27/19 15:22 AW [id number]) PT-Bed Mobility Assessment Rolling Type of Rolling Log Rolling,Roll to Left Level of Assist Minimal Assistance Supine to Sit Supine to Sit Minimal Assistance,1 Person Assistance PT-Transfer Assessment Sit to and From Stand Sit to and from Stand Contact Guard Assistance Equipment Transfer Assistive Device Gait Belt,Front Wheeled Walker Comments Mobility Comments Pt sitting up in bed upon PT arrival. He was requesting to get out of bed. He required min assist and verbal cues for sequencing to complete log roll to left side and sidelying to sit. He was able to sit EOB with and without UE support before standing with no AD. In initial standing, pt asked to hold the IV pole. He sat again on the bed while PT secured a FWW. Pt stood again CGA using FWW and proceeded to ambulated SBA with FWW in the halls. He completed stairs assessment and 500 feet ambulation with FWW SBA. He requested to continue walking, so SENIOR MEDICAL DIRECTOR took over and walked with him. Gait Assessment Gait Gait Assistance Required: Standby Assistance Distance (Feet) 500 Assistive Devices Assistive Device Gait Belt,Front Wheeled Walker Gait Deviations General Gait Pattern Decreased Stride Length, Decreased Feet Clearance Factors Limiting Gait Function Factors Limiting Gait Function Decreased Activity Tolerance, Decreased Strength,Pain Comments Gait Comments See mobility comments. Pt was somewhat impulsive with FWW but required no more than SBA. Stair Climbing Assessment Evaluation Level of Assist On Stairs Standby Assistance Devices Stair Climbing Assistive Devices Left Railing Technique/Endurance Stair Climbing Direction Ascend and Descend Stair Climbing Technique Step Over Step Number of Steps Climbed 3 Query Text: Stair Climbing Set # Repetitions (reps) 2 PT-Balance Assessment Sitting Balance and Reactions Static Sitting Balance Ability Good Dynamic Sitting Balance Ability Good Standing Balance and Reactions Static Standing Balance Ability Good Dynamic Standing Balance Ability Good Device Used FWW M5 PT-IP Objective Assessments Start: 12/27/19 09:16 Freq: NEEDED Status: Active Protocol: Document 12/27/19 14:56 AW (Rec: 12/27/19 15:22 AW [id number]) Orientation Orientation/Cognition Level of Alertness Alert Orientation Name,Day of Week,Place, Situation Language Function Ability No Deficits Noted Safety Awareness Understands Safety Issues Memory Description Usp Impaired Comments Pt admitted to recent challenges with long-term memory. He did have difficulty relaying some information related to his original appendectomy. Gross Range of Motion Lower Extremity ROM Assessment Within Functional Limits Strength Lower Extremity Strength Assessment Within Functional Limits Comments Strength Comments BLE grossly 4+/5 Coordination Assessment Gross Coordination Gross Coordination WNL Sensation Assessment Sensation Gross Sensation WNL Muscle Tone Muscle Tone WNL Yes M6 PT-IP Treatment Start: 12/27/19 09:16 Freq: NEEDED Status: Active Protocol: Document 12/27/19 14:56 AW (Rec: 12/27/19 15:22 AW [id number]) Physical Therapy Treatment Education Education Provided Precautions,Safety Other Treatments Other Treatment Performed Provided education on role of PT, plan of care, selection of appropriate assistive device, and the importance of continued mobility following abdominal surgery. M7 PT-IP Assessment and Plan Start: 12/27/19 09:16 Freq: NEEDED Status: Active Protocol: Document 12/27/19 14:56 AW (Rec: 12/27/19 15:22 AW [id number]) PT Summary Assessment and Plan Potential Rehabilitation Potential Good Status of Condition at Evaluation Evolving Summary Impairments Pain,Strength,Bed Mobility, Transfers,Gait,Activity Tolerance Assessment Summary James is a 79 yo man seen for PT evaluation on POD0 following exploratory laparotomy and repair of incisional hernia. At baseline, pt is active and independent. On evaluation, he required min assist for bed mobility and SBA for ambulation with FWW. PT anticipates he will meet the functional goals of this plan of care and be safe to discharge home with his assisting. Depending on progress, he may need a FWW for home use. Goals Bed Mobility Goal Standby Assistance Transfer Goal Independent,Front Wheeled Walker Gait Goal Independent,Front Wheel Walker Gait Distance 500 Other Goals - up/down 15 steps with left rail ascending SBA Days to Meet Goals 2 Frequency of Treatment Frequency Of Treatment Once a Day Treatment Plan Physical Therapy Treatment Plan Bed Mobility Training,Transfer Training,Gait Training, Therapeutic Exercise,Balance Retraining,Post Op Education, Discharge Planning,Hot or Cold Pack Other Recommendations and Next Treatment review log roll for bed Focus mobility, assess gait with LRAD, stairs Recommendations To Nursing Amount of Assist Needed 1 Person Assist Discharge Recommendations PT Discharge Recommendations Home with Assistance Equipment Needed for Home Before FWW Discharge Transportation Needs at Discharge Private Vehicle
--- NOTE | 2019-12-27 17:10 | OT.IP.EVAL ---
Surgery Performed Operation Date: 12/27/19 04:05 Actual Procedures p Exploratory Laparotomy GEN, SMALL BOWEL RESECTION, REPAIR INCISIONAL HERNIA(Not Applicable) - Hipolito Montenegro MD Past Medical History (Last Reviewed 12/27/19 @ 03:24 by Hipolito Montenegro MD) Facet arthropathy, lumbar (Chronic) Foraminal stenosis of lumbar region (Chronic) Surgical History (Last Reviewed 12/27/19 @ 03:24 by Hipolito Montenegro MD) Status post appendectomy Status post hernia repair Occupational Therapy Inpatient Evaluation/Re-Eval M1 PT/OT-IP Prior Functional Status Start: 12/27/19 18:29 Freq: NEEDED Status: Active Protocol: Document 12/27/19 16:09 [facility]3] (Rec: 12/27/19 18:55 [facility]3] [id number]) Medical Review Prior Functional Status Medical History Reviewed Yes Communication WNL; Pt is an effective verbal communicator Mobility and Gait Pt is active and independent without assistive device. He regularly gardens and chops firewood to heat his home. Activities of Daily Living and IADL's Independent with ADL's, Pt states his pays the bills and sets-up his medications. Social History Household Members spouse Living Arrangements House Number of Floors (Floors) Two Floors Number of Stairs To Enter/Railing? Level entrance to main level at back door which is the patient's typical entrance. 15 steps up with left rail ascending to the second level to access the bedroom. Home Environment Standard Height Toilet,Walk in Shower Home Equipment Hospital Bed,Grab Bars In Shower Employment Status Retired Additional Social History Comment Pt lives on [address] with his spouse, Carolyn, who is available and able to assist as needed. M2 OT-IP Current Condition Start: 12/27/19 18:29 Freq: Status: Active Protocol: Document 12/27/19 16:09 [facility]3] (Rec: 12/27/19 18:55 [facility]3] [id number]) Occupational Therapy Current Condition Current Condition Evaluation Date 12/27/19 Treatment Diagnosis Incarcerated incisional hernia , S/p explor. and Lap Diagnosis Onset Date 12/27/19 Post Operative Precautions Abdominal Surgery Precautions Log Roll,Lifting Restrictions Weight Bearing Status Weight Bearing Status Weight Bear as Tolerated M3 OT- IP Subjective and Pain Start: 12/27/19 18:29 Freq: Status: Active Protocol: Document 12/27/19 16:09 [facility]3] (Rec: 12/27/19 18:55 [facility]3] [id number]) OT- Subjective Occupational Therapy Visit Type Type Initial Evaluation Visit Start Time 16:09 Visit Stop Time 17:10 Total Visit Minutes 61 Occupational Therapy Visit Comments Patient Comments Pt agreeable to do OT eval. Patient/Caregiver Goals To go home. OT Pain Assessment Pain When Pain Assessed At Rest Pain Present Pain Present Denied Pain M4 OT- IP ADL's Start: 12/27/19 18:29 Freq: Status: Active Protocol: Document 12/27/19 16:09 [facility]3] (Rec: 12/27/19 18:55 [facility]3] [id number]) OT [id number] Comments OT Self-Feeding Comments Not at meal time. OT ADL-Grooming General Evaluation Grooming Ability Standby Assistance Areas Needing Assistance Retrieving/Set-up of Grooming Items Comments OT Grooming Comments SBA while standing at the sink , orientation for use of sink and automatic soap dispenser. OT ADL-Oral Care General Eval Oral Care Ability Independent OT ADL-Dressing General Eval Lower Body Dressing Ability Moderate Assistance Areas Needing Assistance Socks Comments OT Dressing Comments Pt needing assist to emma right sock due to pain on right side. Pt states his will be able to assist him OT ADL-Toileting General Evaluation Toileting Ability Total Assistance Comments OT Toileting Comments Pt has a montiel in. OT ADL-Bathing Comments OT Bathing Comments Pt states at home stands to shower. M5 OT- IP IADL's Start: 12/27/19 18:29 Freq: Status: Active Protocol: Document 12/27/19 16:09 [facility]3] (Rec: 12/27/19 18:55 [facility]3] [id number]) OT-Instrumental Activities of Daily Living Home Safety Awareness Home Safety Comments Pt able to answer home safety questions with 80% accuracy. Medication Management Medication Management Caregiver Administers Money Management Money Management Caregiver Provides Assistance Meal Preparation Meal Preparation Caregiver Provides Assist Network Technician Network Technician Caregiver Provides Assist Driving Driving Concerns Identified Regarding Safety M6 OT- IP Functional Cognition Start: 12/27/19 18:29 Freq: Status: Active Protocol: Document 12/27/19 16:09 [facility]3] (Rec: 12/27/19 18:55 [facility]3] [id number]) Cognitive Factors Limiting Selfcare Function Cognitive Ability Level of Alertness Alert Patient Orientation Name,Month,Year,Place Attention Span Ability Capable of Focused Attention, Capable of Sustained Attention Ability to Follow Commands Able to Follow One Step Commands Memory Description Short Term Impaired Safety Awareness Underestimates Need for Assistance Problem Solving Ability Needs Assist to Identify Solutions Executive Function Ability Unable to Organize Plans, Unable to Remember Details Cognitive Tests SLUMS Pt scored 21/30 which implies mild deficits, but borderlines score for dementia which is from 0-20. Pt did not know the day of the week, only able to states 10 animals in one minute, only able to recall 2 out of 5 objects after time passes, and only able to answer 2/4 questions after a paragraph read. Cognitive Comments Cognitive Assessment Comments Pt states has difficulty with is memory at times and not new . Pt admits to forgetting where his keys are or where he has parked. To try TraiL Making Part B with pt tomorrow . OT- Vision and Hearing OT- Hearing Assessment OT- Hearing Assessment WFL OT- Vision Assessment Visual Acuity Glasses For Reading M7 OT- IP Mobility and Balance Start: 12/27/19 18:29 Freq: Status: Active Protocol: Document 12/27/19 16:09 [facility]3] (Rec: 12/27/19 18:55 [facility]3] [id number]) OT- Bed Mobility Assessment Rolling Type of Rolling Roll to Left Level of Assistance Standby Assistance Supine to Sit Supine to Sit Assist Standby Assistance Scooting Scooting to Edge of Bed Standby Assistance OT-Transfer Assessment Sit to and From Stand Sit to and from Stand Standby Assistance Transfers Transfer Ability Standby Assistance,Contact Guard Assistance Technique Transfer Destination Bed,Chair Transfer Technique Stand Step Pivot Devices Transfer Assistive Devices None,Gait Belt Comments Mobility Comments Pt able to recall to roll to the left for log rolling SBA to the edge of the bed. CGA to close SBA to walk to the sink for grooming needs. OT- Gait Assessment Gait Gait Assistance Required: Standby Assistance,Contact Guard Assist OT- Balance Assessment Sitting Balance and Reactions Static Sitting Balance Ability Normal Dynamic Sitting Balance Ability Good Standing Balance and Reactions Static Standing Balance Ability Good M8 OT- IP Objective Assessments Start: 12/27/19 18:29 Freq: Status: Active Protocol: Document 12/27/19 16:09 [facility]3] (Rec: 12/27/19 18:55 [facility]3] [id number]) OT Gross Range of Motion Upper Extremity Range of Motion Assessment Within Functional Limits OT Strength Upper Extremity Strength Assessment Within Functional Limits OT-Muscle Tone Assessment Muscle Tone WNL Yes M9 OT- IP Assessment and Plan Start: 12/27/19 18:29 Freq: Status: Active Protocol: Document 12/27/19 16:09 [facility]3] (Rec: 12/27/19 18:55 [facility]3] [id number]) OT Summary Assessment and Plan Potential Rehabilitation Potential Good Analytic Complexity at Evaluation Low Summary OT Impairments Functional Cognition, Functional Mobility,Dressing, Toileting,Bathing,Toilet Transfers,Shower Transfers Progress Towards Goals Progressing Toward Goals Assessment Summary Pt low complexity and main barrier due to recent repair of incisional hernia now needing some assist for ADL needs. Pt's states his is very supportive and will be able to assist with his needs when he goes home. Goals Grooming Goal Independent Dressing Goal Independent Toileting Goal Independent Bathing Goal Standby Assistance Toilet Transfer Goal Independent Shower Transfer Goal Independent Days to Meet Goals 4 Frequency of Treatment Frequency Of Treatment Once a Day Treatment Plan OT Treatment Plan ADL Training,Functional Cognition Training,Functional Mobility,Patient/Family Education,Discharge Planning Other Treatment Recommendations and Next SHower, [place] MAking Part B Treatment Focus Discharge Recommendations OT Discharge Recommendations Home with Assistance Home Equipment Needs possible shower chair Transportation Needs at Discharge Private Vehicle
--- NOTE | 2019-12-27 17:32 | PC.NURSE ---
pt up in chair working with OT see her notes, some forgetfulness noted-denies pain vss denies flatus bt's quiet
[2019-12-27] MEDS: OXYCODONE/ACETAMINOPHEN 5/325 TABLET 1 TAB PO (20:36)
[2019-12-28] VITALS (9 sets, daily range): BP systolic 114–146; BP diastolic 50–76; PULSE 64–78; RESP 14–18; TEMP 36.6–37.1; O2SAT 95–99
[2019-12-28] MEDS: OXYCODONE/ACETAMINOPHEN 5/325 TABLET 1 TAB PO ×4 (00:44→22:20)
[2019-12-28] MEDS: PIPERACILLIN-TAZO 3.375 GM/50 ML FROZ.PIGGY IV (04:40)
[2019-12-28 07:54] LABS: Add Manual Diff / Slide Review NO; Basophils Absolute Auto 0 /uL (0-100); Basophils Percent Auto 0.4 % (0-2); Eosinophils Absolute Auto 0 /uL (0-450); Eosinophils Percent Auto 0.3 % (2-4); Hematocrit 36.6 % (41-53); Hemoglobin 12.6 g/dL (13.5-17.5); Lymphocytes Absolute Auto 1000 /uL (1100-4500); Lymphocytes Percent Auto 10.9 % (25-40); Mean Corpuscular HGB Conc 34.4 % (30-36); Mean Corpuscular Hemoglobin 31.2 PG (26-34); Mean Corpuscular Volume 90.8 fL (80-100); Monocytes Absolute Auto 800 /uL (0-900); Monocytes Percent Auto 9.2 % (3-14); Neutrophils Absolute Auto 7100 /uL (1500-7000); Neutrophils Percent Auto 79.2 % (50-75); Platelet Count 123 X10^3/uL (150-400); Red Blood Cell Count 4.03 X10^6/uL (4.5-5.9); Red Cell Distribution Width 13.7 % (11.6-14.8)
[2019-12-28 08:06] LABS: BUN Creatinine Ratio 21.4 (6-22); Blood Urea Nitrogen 15 mg/dL (9-20); Carbon Dioxide 25 mmol/L (22-32); Chloride 104 mmol/L (98-107); Estimated Glomerular Filt Rate > 60.0 mL/min (>60); Glucose 98 mg/dL (80-110); HEMOLYSIS < 15 (0-50); Magnesium 1.8 mg/dL (1.6-2.3); Phosphorous 3.3 mg/dL (2.3-3.7); Potassium 3.9 mmol/L (3.4-5.1); Sodium 136 mmol/L (137-145)
[2019-12-28] MEDS: METOPROLOL IR 25 MG TABLET 12.5 MG PO (09:04)
[2019-12-28] MEDS: TRIAMTERENE/HCTZ 37.5/25 TABLET 1 CAP PO (09:05)
[2019-12-28] MEDS: lisinopriL 10 MG TABLET PO (09:05)
--- NOTE | 2019-12-28 09:25 | P.PN_ITS ---
Subjective Subjective Date Patient Seen: 12/28/19 Time Patient Seen: 09:26 Interval history: For tolerated clear liquids without nausea or vomiting. No fever. No flatus or bowel movement. Pain is well controlled Exam Vital Signs (past 8 hours): - 12/28/19 04:00 12/28/19 07:50 Temperature 98.0 F 98.8 F Pulse Rate 64 65 Respiratory Rate 14 17 Blood Pressure 114/50 L 119/55 L Pulse Oximetry 96 95 Oxygen Delivery Method Room Air Oxygen Flow Rate 0 Narrative Exam Narrative: General adult male alert oriented no acute distress Abdomen soft appropriately tender to palpation incision right lower quadrant clean dry intact with ara. Objective Labs Result Diagrams: 12/28/19 07:38 12/28/19 07:38 Labs: Laboratory Results - last 24 hr 12/28/19 12/28/19 07:38 07:38 WBC 9.0 RBC 4.03 L Hgb 12.6 L Hct 36.6 L MCV 90.8 MCH 31.2 MCHC 34.4 RDW 13.7 Plt Count 123 L Neut % (Auto) 79.2 H Lymph % (Auto) 10.9 L Centre % (Auto) 9.2 Eos % (Auto) 0.3 L Baso % (Auto) 0.4 Neut # (Auto) 7100 H Lymph # (Auto) 1000 L Centre # (Auto) 800 Eos # (Auto) 0 Baso # (Auto) 0 Sodium 136 L Potassium 3.9 Chloride 104 Carbon Dioxide 25 BUN 15 Creatinine 0.70 Estimated GFR > 60.0 BUN/Creatinine Ratio 21.4 Glucose 98 Calcium 9.0 Phosphorus 3.3 Magnesium 1.8 Assessment & Plan Post-op Postoperative Procedures: Procedures Operation Date: 12/27/19 04:05 Actual Procedures Side Surgeon p Exploratory Laparotomy GEN, SMALL BOWEL RESECTION, REPAIR INCISIONAL HERNIA Not Applicable Hipolito Montenegro MD Postoperative status narrative: 79-year-old man postoperative day 1 status post exploratory laparotomy resection of necrotic small bowel and repair of incisional hernia for a strangulated small bowel hernia. He is overall doing very well and making appropriate recovery. -regular diet -DC Enamorado catheter and IV fluids -stop antibiotics -out of bed ambulate physical therapy consult -SCDs and Lovenox for VTE prophylaxis
--- NOTE | 2019-12-28 10:26 | PT.IPTN ---
Current Diagnoses Incisional hernia without obstruction or gangrene (12/27/19) Surgery Performed Operation Date: 12/27/19 04:05 Actual Procedures p Exploratory Laparotomy GEN, SMALL BOWEL RESECTION, REPAIR INCISIONAL HERNIA(Not Applicable) - Hipolito Montenegro MD Physical Therapy Treatment Note M2 PT-IP Current Condition Start: 12/27/19 09:16 Freq: NEEDED Status: Active Protocol: Document 12/27/19 14:56 AW (Rec: 12/27/19 15:22 AW [id number]) Physical Therapy Current Condition Current Condition Evaluation Date 12/27/19 Treatment Diagnosis s/p exp lap; impaired mobility Onset Date 12/26/19 Precautions Abdominal Surgery Precautions Log Roll,Lifting Restrictions, Gait Belt above Incisional Area Weight Bearing Status Weight Bearing Status Full Weight Bearing M3 PT-IP Subjective Start: 12/27/19 09:16 Freq: NEEDED Status: Active Protocol: Document 12/28/19 10:02 SP (Rec: 12/28/19 15:15 SP [email or web address]) Subjective Physical Therapy Visit Type Type Treatment Note Visit Start Time 10:02 Visit Stop Time 10:26 Total Visit Minutes 24 Number of CHAIRMAN PRESIDENT AND CHIEF EXECUTIVE OFFICER Visits 1 Physical Therapy Visit Comments Patient Comments Pt agreeable to working with therapy. Patient Goals Pt plans to return home to [place] with his assisting as needed. Therapy Pain Assessment Pain When Pain Assessed At Rest Pain Present Pain Present Pain Reported Location Abd Intensity 5 Scale Used Numeric (0 - 10) Pain Management Techniques Re-positioning,Timing of Activity with Medications M4 PT-IP Mobility and Gait Start: 12/27/19 09:16 Freq: NEEDED Status: Active Protocol: Document 12/28/19 10:02 SP (Rec: 12/28/19 15:15 SP [email or web address]) PT-Bed Mobility Assessment Rolling Type of Rolling Roll to Left Level of Assist Standby Assistance Supine to Sit Supine to Sit Standby Assistance Sit to Supine Sit to Supine Standby Assistance Scooting Scooting to Edge of Bed Standby Assistance PT-Transfer Assessment Sit to and From Stand Sit to and from Stand Contact Guard Assistance,Use of Upper Extremities Equipment Transfer Assistive Device None,Gait Belt Orthotic/Prosthetic Devices or Brace: No Transfers Transfer Destination Bed Transfer Technique pt ambulated with no AD Transfer Ability Level of Assist Standby Assistance,Contact Guard Assistance,Use of Upper Extremities Comments Mobility Comments Pt was reclined in chair when arrived. Pt able to lower leg rests himself. Sit <> stand using BUE on chair arms to stand, no AD required. Pt ambulated across room CGA initially then decreased close SBA once in hallway with cues for directioning stair location. Pt able to ascend 15 stairs using R or L HRs to assimulate home environment step over step patterning CGA initially 3 stairs then close SBA rest, stable. Pt was able to walk further in hallway 2 laps around nursing station 424 ft total no AD CGA initally then close SBA and cuing for slow pacing due to noted increased breathing rate but patient stated not use to use a mask and stated starting to tire 1/2 way around 2nd lap nursing but that wanted to finish before returning to room. Pt completed sitting>supine with 1 cue for keeping knees with shld during log roll to maintain precautions of no twisting. CHAIRMAN PRESIDENT AND CHIEF EXECUTIVE OFFICER reviewed also no heavy lifting within physician recommendations with verbal confirmation therapist stated a gallon of milk is about 10 lbs. Pt was lay in bed with bed alarmed with call light and all needs in reach when left. Gait Assessment Gait Gait Assistance Required: Standby Assistance,Contact Guard Assist Distance (Feet) 424 Able to Maintain Weight Bearing Status Yes During Gait Assistive Devices Assistive Device None,Gait Belt Orthotic/Prosthetic Devices or Brace: No Gait Deviations General Gait Pattern Antalgic Factors Limiting Gait Function Factors Limiting Gait Function Decreased Activity Tolerance, Decreased Strength,Pain Comments Gait Comments See, mobility comments. Pt is impulsive, wanting to take off walking once in standing, cued to have bearings before start walking for safety balance awareness. Pt demonstrated some wt shift deviations during gait with noted head turns but self recovery CGA- SBA, no AD. Stair Climbing Assessment Evaluation Level of Assist On Stairs Standby Assistance,Contact Guard Assistance Devices Stair Climbing Assistive Devices Left Railing,Right Railing Technique/Endurance Stair Climbing Direction Ascend and Descend Stair Climbing Technique Step Over Step Number of Steps Climbed 3 Stair Climbing Set # Repetitions (reps) 5 Comments Stair Climbing Comments See mobility comments. PT-Balance Assessment Sitting Balance and Reactions Static Sitting Balance Ability Normal Dynamic Sitting Balance Ability Good Standing Balance and Reactions Static Standing Balance Ability Good Dynamic Standing Balance Ability Fair Device Used no AD Functional Assessments Other Functional Tests Performed Occasional wt shift deviations recovery and slowed pacing during gait head turn activity , no AD CGA- SBA. M5 PT-IP Objective Assessments Start: 12/27/19 09:16 Freq: NEEDED Status: Active Protocol: Document 12/27/19 14:56 AW (Rec: 12/27/19 15:22 AW [id number]) Orientation Orientation/Cognition Level of Alertness Alert Orientation Name,Day of Week,Place, Situation Language Function Ability No Deficits Noted Safety Awareness Understands Safety Issues Memory Description Manuscript Reader Impaired Comments Pt admitted to recent challenges with long-term memory. He did have difficulty relaying some information related to his original appendectomy. Gross Range of Motion Lower Extremity ROM Assessment Within Functional Limits Strength Lower Extremity Strength Assessment Within Functional Limits Comments Strength Comments BLE grossly 4+/5 Coordination Assessment Gross Coordination Gross Coordination WNL Sensation Assessment Sensation Gross Sensation WNL Muscle Tone Muscle Tone WNL Yes M6 PT-IP Treatment Start: 12/27/19 09:16 Freq: NEEDED Status: Active Protocol: Document 12/28/19 10:02 SP (Rec: 12/28/19 15:15 SP [email or web address]) Physical Therapy Treatment Education Education Provided Precautions,Safety M7 PT-IP Assessment and Plan Start: 12/27/19 09:16 Freq: NEEDED Status: Active Protocol: Document 12/28/19 10:02 SP (Rec: 12/28/19 15:15 SP [email or web address]) PT Summary Assessment and Plan Potential Rehabilitation Potential Good Status of Condition at Evaluation Evolving Summary Impairments Pain,Strength,Bed Mobility, Transfers,Gait,Activity Tolerance Assessment Summary James is a 79 yo man seen for therapy following exploratory laparotomy and repair of incisional hernia. At baseline , pt is active and independent . Today CGA- sBA with no AD. PT anticipates he will meet the functional goals of this plan of care and be safe to discharge home with his assisting. Goals Bed Mobility Goal Standby Assistance Transfer Goal Independent,Front Wheeled Walker Gait Goal Independent,Front Wheel Walker Gait Distance 500 Other Goals - up/down 15 steps with left rail ascending SBA Days to Meet Goals 2 Frequency of Treatment Frequency Of Treatment Once a Day Treatment Plan Physical Therapy Treatment Plan Bed Mobility Training,Transfer Training,Gait Training, Therapeutic Exercise,Balance Retraining,Post Op Education, Discharge Planning,Hot or Cold Pack Other Recommendations and Next Treatment review log roll for bed Focus mobility, assess gait with LRAD, stairs Recommendations To Nursing Amount of Assist Needed Standby Assistance Discharge Recommendations PT Discharge Recommendations Home with Assistance Transportation Needs at Discharge Private Vehicle
--- NOTE | 2019-12-28 11:03 | PC.NURSE ---
Patient is awake. Enamorado taken out and iv also d/c. He has already voided this morning. Up with physical therapy and slightly weak, but he is steady with cane or walker. Dressing to r.lower quadrant cdi with small amount of drainage. Given 1 percocet for complaints of 5/10 pain. Resting in bed and also working with O.T.
--- NOTE | 2019-12-28 11:43 | OT.IP.TRT ---
Current Diagnoses Incisional hernia without obstruction or gangrene (12/27/19) Surgery Performed Operation Date: 12/27/19 04:05 Actual Procedures p Exploratory Laparotomy GEN, SMALL BOWEL RESECTION, REPAIR INCISIONAL HERNIA(Not Applicable) - Hipolito Montenegro MD Occupational Therapy Treatment Note M2 OT-IP Current Condition Start: 12/27/19 18:29 Freq: Status: Active Protocol: Document 12/27/19 16:09 [facility] (Rec: 12/27/19 18:55 [facility] [id number]) Occupational Therapy Current Condition Current Condition Evaluation Date 12/27/19 Treatment Diagnosis Incarcerated incisional hernia , S/p explor. and Lap Diagnosis Onset Date 12/27/19 Post Operative Precautions Abdominal Surgery Precautions Log Roll,Lifting Restrictions Weight Bearing Status Weight Bearing Status Weight Bear as Tolerated M3 OT- IP Subjective and Pain Start: 12/27/19 18:29 Freq: Status: Active Protocol: Document 12/28/19 11:37 [facility] (Rec: 12/28/19 11:43 [facility] [id number]) OT- Subjective Occupational Therapy Visit Type Type Treatment Note Visit Start Time 10:50 Visit Stop Time 11:12 Total Visit Minutes 22 Occupational Therapy Visit Comments Patient Comments Pt in pain and just received pain medications from the nurse and agreed to do TraiL MAking Part B with OT. Patient/Caregiver Goals To go home. OT Pain Assessment Pain When Pain Assessed At Rest Pain Present Pain Present Pain Reported M6 OT- IP Functional Cognition Start: 12/27/19 18:29 Freq: Status: Active Protocol: Document 12/28/19 11:37 [facility] (Rec: 12/28/19 11:43 [facility] [id number]) Cognitive Factors Limiting Selfcare Function Cognitive Comments Cognitive Assessment Comments Pt scored 226 seconds on [place] making Part B however needing MAX vc to get through the assessment. Pt performance implies severe impairment for task switching, visual attention, speed of processing , mental flexibility, and for executive function. Suggested to pt best not to drive and allow his to drive him. Pt states has noted recently has not been driving as much an having his drove more. Pt realizes that his short term memory is impaired and not thinking as well as he use to. M7 OT- IP Mobility and Balance Start: 12/27/19 18:29 Freq: Status: Active Protocol: Document 12/27/19 16:09 [facility] (Rec: 12/27/19 18:55 [facility] [id number]) OT- Bed Mobility Assessment Rolling Type of Rolling Roll to Left Level of Assistance Standby Assistance Supine to Sit Supine to Sit Assist Standby Assistance Scooting Scooting to Edge of Bed Standby Assistance OT-Transfer Assessment Sit to and From Stand Sit to and from Stand Standby Assistance Transfers Transfer Ability Standby Assistance,Contact Guard Assistance Technique Transfer Destination Bed,Chair Transfer Technique Stand Step Pivot Devices Transfer Assistive Devices None,Gait Belt Comments Mobility Comments Pt able to recall to roll to the left for log rolling SBA to the edge of the bed. CGA to close SBA to walk to the sink for grooming needs. OT- Gait Assessment Gait Gait Assistance Required: Standby Assistance,Contact Guard Assist OT- Balance Assessment Sitting Balance and Reactions Static Sitting Balance Ability Normal Dynamic Sitting Balance Ability Good Standing Balance and Reactions Static Standing Balance Ability Good M8 OT- IP Objective Assessments Start: 12/27/19 18:29 Freq: Status: Active Protocol: Document 12/27/19 16:09 [facility] (Rec: 12/27/19 18:55 [facility] [id number]) OT Gross Range of Motion Upper Extremity Range of Motion Assessment Within Functional Limits OT Strength Upper Extremity Strength Assessment Within Functional Limits OT-Muscle Tone Assessment Muscle Tone WNL Yes M9 OT- IP Assessment and Plan Start: 12/27/19 18:29 Freq: Status: Active Protocol: Document 12/28/19 11:37 [facility] (Rec: 12/28/19 11:43 [facility] [id number]) OT Summary Assessment and Plan Potential Rehabilitation Potential Good Analytic Complexity at Evaluation Low Summary OT Impairments Functional Cognition, Functional Mobility,Dressing, Toileting,Bathing,Toilet Transfers,Shower Transfers Progress Towards Goals Progressing Toward Goals Assessment Summary Pt aware of cognitive deficits and realizes that his while be having to assist him more. Pt to go home when medically stable. Goals Grooming Goal Independent Dressing Goal Independent Toileting Goal Independent Bathing Goal Standby Assistance Toilet Transfer Goal Independent Shower Transfer Goal Independent Days to Meet Goals 2 Frequency of Treatment Frequency Of Treatment Once a Day Treatment Plan OT Treatment Plan ADL Training,Functional Cognition Training,Functional Mobility,Patient/Family Education,Discharge Planning Other Treatment Recommendations and Next Shower Treatment Focus Discharge Recommendations OT Discharge Recommendations Home with Assistance Home Equipment Needs possible shower chair Transportation Needs at Discharge Private Vehicle
--- NOTE | 2019-12-28 12:46 | CM.DANOTE ---
DCP: Case received, EMR reviewed and met with patient. Introduced self and role. Was able to meet with patient to obtain information regarding his baseline activity level and living situation. DCP assessment completed with information currently available. Patient is a 79 year old male who admitted yesterday morning to the care of the hospitalist team. PCP: Dr. March. Payer: confirmed: Medicare/[facility]. Patient came to the hospital via ambulance secondary to abdominal pain, and concerns of having a small bowel obstruction. Patient had exploratory surgery yesterday for repair of hernia. Met with patient in his room. He was sitting up in bed. Alert and oriented. He is independent and resides with his , [facility]. He drives, does not use any DME supplies. P: DCP to continue to follow. Patient should be able to go home when he is medically stable and cleared by surgeon. Irena Royal RN/Custodial Engineer
--- NOTE | 2019-12-28 22:43 | PC.NURSE ---
Pt ambulated in hallway X2 with multiple laps and SBA; mild to moderate pain to abdomen, BTs present, pt reports passing gas, but no stool; low-appetite, pt did not eat dinner; denies nausea; LS clear, IS 1500; this RN instructed patient on pillow brace for cough/deep breathe; pt does not always use call light, but instead walks to nurse station; gait stable
[2019-12-29 01:03] VITALS: O2SAT 95
[2019-12-29 05:00] VITALS: BP 133/64; PULSE 72; RESP 18; TEMP 36.7; O2SAT 98
[2019-12-29 06:10] LABS: Add Manual Diff / Slide Review NO; Basophils Absolute Auto 0 /uL (0-100); Basophils Percent Auto 0.6 % (0-2); Eosinophils Absolute Auto 200 /uL (0-450); Eosinophils Percent Auto 2.1 % (2-4); Hematocrit 37.8 % (41-53); Hemoglobin 13.3 g/dL (13.5-17.5); Lymphocytes Absolute Auto 1100 /uL (1100-4500); Lymphocytes Percent Auto 13.4 % (25-40); Mean Corpuscular HGB Conc 35.1 % (30-36); Mean Corpuscular Hemoglobin 31.5 PG (26-34); Mean Corpuscular Volume 89.9 fL (80-100); Monocytes Absolute Auto 800 /uL (0-900); Monocytes Percent Auto 10.5 % (3-14); Neutrophils Absolute Auto 5800 /uL (1500-7000); Neutrophils Percent Auto 73.4 % (50-75); Platelet Count 127 X10^3/uL (150-400); Red Blood Cell Count 4.21 X10^6/uL (4.5-5.9); Red Cell Distribution Width 13.7 % (11.6-14.8); White Blood Cell Count 7.9 X10^3/uL (4.5-11.0)
[2019-12-29 06:22] LABS: BUN Creatinine Ratio 21.4 (6-22); Blood Urea Nitrogen 15 mg/dL (9-20); Calcium 9.3 mg/dL (8.4-10.2); Carbon Dioxide 29 mmol/L (22-32); Chloride 101 mmol/L (98-107); Estimated Glomerular Filt Rate > 60.0 mL/min (>60); Glucose 90 mg/dL (80-110); HEMOLYSIS < 15 (0-50); Magnesium 1.9 mg/dL (1.6-2.3); Phosphorous 3.3 mg/dL (2.3-3.7); Potassium 4.1 mmol/L (3.4-5.1); Sodium 135 mmol/L (137-145)
[2019-12-29 07:55] VITALS: BP 147/68; PULSE 69; RESP 17; TEMP 36.8; O2SAT 95
[2019-12-29 09:00] VITALS: O2SAT 96
--- NOTE | 2019-12-29 09:28 | PT.IPTN ---
Current Diagnoses Incisional hernia without obstruction or gangrene (12/27/19) Surgery Performed Operation Date: 12/27/19 04:05 Actual Procedures p Exploratory Laparotomy GEN, SMALL BOWEL RESECTION, REPAIR INCISIONAL HERNIA(Not Applicable) - Hipolito Montenegro MD Physical Therapy Treatment Note M2 PT-IP Current Condition Start: 12/27/19 09:16 Freq: NEEDED Status: Active Protocol: Document 12/27/19 14:56 AW (Rec: 12/27/19 15:22 AW [id number]) Physical Therapy Current Condition Current Condition Evaluation Date 12/27/19 Treatment Diagnosis s/p exp lap; impaired mobility Onset Date 12/26/19 Precautions Abdominal Surgery Precautions Log Roll,Lifting Restrictions, Gait Belt above Incisional Area Weight Bearing Status Weight Bearing Status Full Weight Bearing M3 PT-IP Subjective Start: 12/27/19 09:16 Freq: NEEDED Status: Active Protocol: Document 12/29/19 09:12 SP (Rec: 12/29/19 10:40 SP [email or web address]) Subjective Physical Therapy Visit Type Type Treatment Note Visit Start Time 09:12 Visit Stop Time 09:28 Total Visit Minutes 16 Number of DIRECT SUPPORT STAFF MEMBER Visits 2 Physical Therapy Visit Comments Patient Comments Pt agreeable to working with therapy. Patient Goals Pt plans to return [place] his assisting as needed. Therapy Pain Assessment Pain Present Pain Present Denied Pain M4 PT-IP Mobility and Gait Start: 12/27/19 09:16 Freq: NEEDED Status: Active Protocol: Document 12/29/19 09:12 SP (Rec: 12/29/19 10:40 SP [email or web address]) PT-Bed Mobility Assessment Rolling Type of Rolling Roll to Right Level of Assist Standby Assistance Supine to Sit Supine to Sit Standby Assistance Sit to Supine Sit to Supine Standby Assistance Scooting Scooting to Edge of Bed Standby Assistance PT-Transfer Assessment Sit to and From Stand Sit to and from Stand Standby Assistance,Use of Upper Extremities Equipment Transfer Assistive Device None,Gait Belt Orthotic/Prosthetic Devices or Brace: No Transfers Transfer Destination Bed Transfer Technique pt ambulated with no AD Transfer Ability Level of Assist Standby Assistance,Use of Upper Extremities Comments Mobility Comments Pt was L sidelying in bed when arrived. Pt completed L log roll then R sidelying to sitting, sitting to supine HOB flat SBA. sit<> stand sBA no AD. Standing balance assessment CGA: NBOS feet together EO/EC 10 sec stable, stagger stance EO 10 sec, 4sec EC before lost balance self recovery. step pivot transfer bed to chair then 5 sit to stands with arms across chest good spinal stabilization and alignment. Pt ambulated in hallway SBA no AD 212 ft including head turns and vertical looking able to maintain forward movement but 1 wt shift deviation with self recovery to R. Completed 6 stairs R HR SBA, stable. Pt was laying in bed when returned to room with call light on, bed alarmed and all needs in reach. Gait Assessment Gait Gait Assistance Required: Standby Assistance,Contact Guard Assist Distance (Feet) 212 Able to Maintain Weight Bearing Status Yes During Gait Assistive Devices Assistive Device None,Gait Belt Orthotic/Prosthetic Devices or Brace: No Gait Deviations General Gait Pattern Antalgic Factors Limiting Gait Function Factors Limiting Gait Function Decreased Activity Tolerance, Decreased Strength,Limited Range of Motion Comments Gait Comments See mobility comments. Gait decreased distance due to stating just woke up and not wanting to go for long walk no AD, SBA provided for safety, due to wt shift deviation during head turn but self recovery. Updated communication board. Stair Climbing Assessment Evaluation Level of Assist On Stairs Standby Assistance Devices Stair Climbing Assistive Devices Right Railing Technique/Endurance Stair Climbing Direction Ascend and Descend Stair Climbing Technique Step Over Step Number of Steps Climbed 3 Stair Climbing Set # Repetitions (reps) 2 Comments Stair Climbing Comments See mobility comments. PT-Balance Assessment Sitting Balance and Reactions Static Sitting Balance Ability Normal Dynamic Sitting Balance Ability Normal Standing Balance and Reactions Static Standing Balance Ability Good Dynamic Standing Balance Ability Fair Device Used no AD Functional Assessments Other Functional Tests Performed See mobilitycomments, NBOS activities. M5 PT-IP Objective Assessments Start: 12/27/19 09:16 Freq: NEEDED Status: Active Protocol: Document 12/27/19 14:56 AW (Rec: 12/27/19 15:22 AW [id number]) Orientation Orientation/Cognition Level of Alertness Alert Orientation Name,Day of Week,Place, Situation Language Function Ability No Deficits Noted Safety Awareness Understands Safety Issues Memory Description Nursing Home Impaired Comments Pt admitted to recent challenges with long-term memory. He did have difficulty relaying some information related to his original appendectomy. Gross Range of Motion Lower Extremity ROM Assessment Within Functional Limits Strength Lower Extremity Strength Assessment Within Functional Limits Comments Strength Comments BLE grossly 4+/5 Coordination Assessment Gross Coordination Gross Coordination WNL Sensation Assessment Sensation Gross Sensation WNL Muscle Tone Muscle Tone WNL Yes M6 PT-IP Treatment Start: 12/27/19 09:16 Freq: NEEDED Status: Active Protocol: Document 12/29/19 09:12 SP (Rec: 12/29/19 10:40 SP [email or web address]) Physical Therapy Treatment Education Education Provided Precautions,Safety Other Treatments Other Treatment Performed 5 sit to stands from chair arms across chest, SBA. see comments further. M7 PT-IP Assessment and Plan Start: 12/27/19 09:16 Freq: NEEDED Status: Active Protocol: Document 12/29/19 09:12 SP (Rec: 12/29/19 10:40 SP [email or web address]) PT Summary Assessment and Plan Potential Rehabilitation Potential Good Status of Condition at Evaluation Evolving Summary Impairments Pain,Strength,Bed Mobility, Transfers,Gait,Activity Tolerance Assessment Summary Today sBA with no AD. PT anticipates he will meet the functional goals of this plan of care and be safe to discharge home with his assisting without AD. Goals Bed Mobility Goal Standby Assistance Transfer Goal Independent,Front Wheeled Walker Gait Goal Independent,Front Wheel Walker Gait Distance 500 Other Goals - up/down 15 steps with left rail ascending SBA (completed 12/27) Days to Meet Goals 2 Frequency of Treatment Frequency Of Treatment Once a Day Treatment Plan Physical Therapy Treatment Plan Bed Mobility Training,Transfer Training,Gait Training, Therapeutic Exercise,Balance Retraining,Post Op Education, Discharge Planning,Hot or Cold Pack Other Recommendations and Next Treatment Standing balance activities, Focus further distance gait. Recommendations To Nursing Amount of Assist Needed Standby Assistance Discharge Recommendations PT Discharge Recommendations Home with Assistance Transportation Needs at Discharge Private Vehicle
[2019-12-29] MEDS: ENOXAPARIN 40 MG/0.4 ML SYRINGE SUBCUT (10:05)
[2019-12-29] MEDS: lisinopriL 10 MG TABLET PO (10:06)
[2019-12-29] MEDS: TRIAMTERENE/HCTZ 37.5/25 TABLET 1 CAP PO (10:07)
[2019-12-29] MEDS: METOPROLOL IR 25 MG TABLET 12.5 MG PO (10:07)
[2019-12-29] MEDS: SODIUM CHLORIDE 0.9% FLUSH 10 ML IV (10:07)
[2019-12-29 11:00] VITALS: BP 140/57; PULSE 73; RESP 16; TEMP 36.6; O2SAT 96
--- NOTE | 2019-12-29 11:40 | PC.NURSE ---
Pt denies nausea and vomiting. He tolerated his general breakfast this morning and has been up and ambulated in the halls x 2. He is eager to go home.
--- NOTE | 2019-12-29 15:08 | P.DS_ITS ---
History of Present Illness History of Present Illness Chief complaint: Poss SOB Narrative: 79-year-old male presents to the emergency room by air ambulance for acute onset of abdominal pain. He developed a bulge and sharp pain of his right flank over his previous appendectomy incision 6 hours ago. He underwent a CT abdomen pelvis that demonstrates incarcerated small bowel within the hernia and assoicated small bowel obstruction. WBC 9, afebrile. He denies nausea or vomiting. In the emergency room despite pain medication the hernia can not be reduced. Past medical history is significant for coronary artery disease, HTN, has several coronary stents from 3 years ago no active chest pain or shortness of breath. He is not on anticoagulation and a non smoker.. Discharge Providers Provider Date of admission: 12/27/19 03:16 Discharge Date: 12/29/19 Primary care physician: Fernie March MD Consults: 12/27/19 06:15 Consult to Occupational Therapy Evaluate & Treat Comment: Physician Instructions: Evaluate and treat Consult to Physical Therapy Evaluate & Treat Comment: Physician Instructions: Evaluate and Treat Discharge provider: Hipolito Montenegro MD Summary Hospital Course Discharge Diagnosis: Incarcerated incisional hernia Necrotic small bowel Small-bowel obstruction Peritonitis Hospital Course: Patient presented with a small-bowel obstruction secondary to an incarcerated incisional hernia. He was taken to the operating room where he underwent an exploratory laparotomy was found to have a necrotic segment of small bowel had a small-bowel resection and then repair of his incisional hernia. His postoperative course was unremarkable. Status at Discharge Cognitive/behavioral status at discharge: oriented Functional status at discharge: independent ambulation Time Spent with Patient Time spent: Greater than 30 minutes Exam Vital Signs (past 8 hours): - 12/29/19 07:55 12/29/19 09:00 12/29/19 11:00 Temperature 98.3 F 97.8 F Pulse Rate 69 73 Respiratory Rate 17 16 Blood Pressure 147/68 H 140/57 L Pulse Oximetry 95 96 96 Oxygen Delivery Method Room Air Oxygen Flow Rate 0 Narrative Exam Narrative: General adult male alert oriented no acute distress Abdomen soft nontender right lower quadrant incision clean dry intact with stapl es. Extremities warm well perfused. Objective Labs Result Diagrams: 12/29/19 05:45 12/29/19 05:45 Labs: Laboratory Results - last 24 hr 12/29/19 12/29/19 05:45 05:45 WBC 7.9 RBC 4.21 L Hgb 13.3 L Hct 37.8 L MCV 89.9 MCH 31.5 MCHC 35.1 RDW 13.7 Plt Count 127 L Neut % (Auto) 73.4 Lymph % (Auto) 13.4 L [place] % (Auto) 10.5 Eos % (Auto) 2.1 Baso % (Auto) 0.6 Neut # (Auto) 5800 Lymph # (Auto) 1100 [place] # (Auto) 800 Eos # (Auto) 200 Baso # (Auto) 0 Sodium 135 L Potassium 4.1 Chloride 101 Carbon Dioxide 29 BUN 15 Creatinine 0.70 Estimated GFR > 60.0 BUN/Creatinine Ratio 21.4 Glucose 90 Calcium 9.3 Phosphorus 3.3 Magnesium 1.9 Discharge Plan Discharge Plan Patient Disposition: Home Discharge orders & Medications Prescriptions: New tramadol 50 mg tablet 50 mg PO Q6H PRN (Reason: pain) Qty: 30 RF: 0 docusate sodium [Colace] 100 mg capsule 100 mg PO BID Qty: 40 RF: 0 Continued triamterene-hydrochlorothiazid 37.5 MG/25 MG tablet 1 tab PO QDAY Qty: 90 RF: 1 Aspir-81 tablet 81 mg PO DAILY RF: 0 lisinopril 10 mg tablet 10 mg PO DAILY RF: 0 metoprolol tartrate 25 mg tablet 12.5 mg PO DAILY RF: 0 diclofenac sodium 1 % gel 2 g TOP QID MDD 8 gm Qty: 100 RF: 5 Follow up/Referrals: Hipolito Montenegro MD [Physician] - 01/11/20 Fernie March MD [Primary Care Provider] - Diet/Activity/Treatments Diet: Regular Activity: No lifting >20 lbs x 4 weeks. Walking only for exercise for 4 weeks. No [address] while taking narcotics. Skin/Wound/Dressing Care Report to your healthcare provider any signs of infection, such as:: chills, fever, increased pain, unusual drainage and unusual redness Visit Report/Discharge Packet Instructions: Hernias: Causes and Treatment Options, DI for Hernia Repair, [facility]: Wound Care Visit Report Forms: Patient Portal/API, Stroke Signs & Symptoms Discharge Data Primary Care Provider: Fernie March Discharges patient from system. Discharge Date/Time: 12/29/19 13:23
== END 2019-12-29 13:23 | disposition home or self-care (01) | DRG 329 ==
LOC: ED 01:01 → AC 03:29
PROVIDERS: Admitting Provider Surgery; Emergency Provider Emergency Medicine; PCP Internal Medicine; Visit Provider Surgery
PROC: 0WQF0ZZ Repair Abdominal Wall, Open Approach (ICD-10-PCS; CPT 49000; principal; 2019-12-27 04:05)
DX: K43.1 Incisional hernia with gangrene (principal); K65.9 Peritonitis, unspecified; I25.10 Atherosclerotic heart disease of native coronary artery without angina pectoris; Z95.5 Presence of coronary angioplasty implant and graft; I10 Essential (primary) hypertension
CPT/HCPCS: 36415; 44125; 49561; 74022; 74177; 80048; 80053; 81003; 81015; 83690; 83735; 84100; 85025; 87635; 94762; 96361; 96365; 96375; 97116; 97129; 97161; 97165; 97530; 99222; 99284; J0330; J0690; J1100; J1170; J1650; J2405; J2543; J2765; J3010; Q9967

== ENCOUNTER → 2020-02-17 10:06 | Outpatient (CLI) | payer MEDICARE, OTHER, SELFPAY ==
[2020-01-03 10:42] VITALS: BMI 25.4
[2020-02-17 10:49] LABS: BUN Creatinine Ratio 29.6 (6-22); Blood Urea Nitrogen 21 mg/dL (9-20); Estimated Glomerular Filt Rate > 60.0 mL/min (>60)
--- NOTE | 2020-02-17 11:32 | DI.CT.S_ITS ---
PROCEDURE: CT ABDOMEN PELVIS W CON INDICATIONS: right flank hernia TECHNIQUE: After the administration of oral and intravenous contrast, 5 mm thick sections acquired from the diaphragms to the symphysis. 5 mm thick coronal and sagittal reformats were performed. For radiation dose reduction, the following was used: automated exposure control, adjustment of mA and/or kV according to patient size. COMPARISON: [facility], CT, CT ABDOMEN PELVIS W CON, 12/27/2019, 1:21. FINDINGS: Image quality: Excellent. ABDOMEN: Lung bases: Lung bases are clear. Heart size is normal. Solid organs: Liver is normal in size and enhancement. There are several small hepatic cysts, water in density. Gallbladder contains a peripherally calcified gallstone measuring up to 2.0 cm in diameter. There is no sign of biliary obstruction or acute cholecystitis.. Biliary system is non-dilated. Pancreas enhances normally. Spleen is normal in size and enhancement. No adrenal nodules. Kidneys are normal in size and enhancement, without hydronephrosis. Peritoneum and bowel: Stomach, small bowel, and colon loops are normal in caliber and wall thickness. No free fluid or air. Nodes and vessels: No retroperitoneal or mesenteric adenopathy. Aorta and inferior vena cava are normal in caliber. Miscellaneous: There is a right anterolateral ventral hernia at the level of the anterior superior iliac spine region, with a maximal peritoneal defect diameter of approximately 5 cm. This allows small-bowel to extend into the subcutaneous fat, or at least within the layer of the body wall musculature in that area. There are several small metallic apparent surgical clips superficial to the herniation, best seen on the prior CT scanning from 12/27/19 at which time both omental fat and small bowel herniated into the hernia sac. There is no sign of current incarceration or strangulation.. PELVIS: Genitourinary: Bladder wall thickness is normal. Miscellaneous: No inguinal hernias or adenopathy. Bones: No suspicious bony lesions. No vertebral body compression fractures. IMPRESSION: Right anterolateral body wall herniation is present anterior and lateral to the area of the right anterior superior iliac spine. The small bowel that herniates through the peritoneal defect and into the more superficial soft tissues shows no sign of incarceration or strangulation. Currently colon does not appear involved with the herniation itself. The peritoneal defect measures up to 5 cm diameter. The herniated bowel appears to at least extend into the layers of the body wall musculature and may not completely extend into the subcutaneous fat in this area. The exact boundaries of the body wall are difficult to establish given the presence of surgical clips in this area that may represent evidence of some form of mesh placement over the region of herniation. Elsewhere no abnormality suggestive of additional hernia is found. Moderately large peripherally calcified gallstone within the gallbladder lumen. This measures up to 2 cm in maximal dimension but no associated inflammation or biliary distention is present.. Dictated by: Wilber Mendiola M.D. on 02/17/2020 at 12:05 Approved by: Wilber Mendiola M.D. on 02/17/2020 at 12:12
== END ==
PROVIDERS: PCP Internal Medicine; Referring Provider Surgery; Visit Provider Surgery
DX: K43.0 Incisional hernia with obstruction, without gangrene (principal); K80.20 Calculus of gallbladder without cholecystitis without obstruction
CPT/HCPCS: 36415; 74177; 82565; 84520; Q9967

== ENCOUNTER → 2020-02-22 08:31 | Outpatient (CLI) | payer MEDICARE, OTHER, SELFPAY ==
[2020-01-03 10:42] VITALS: BMI 25.4
--- NOTE | 2020-02-22 08:33 | DI.MRI.S_ITS ---
PROCEDURE: MR LUMBAR SPINE WO CON INDICATIONS: axial LBP TECHNIQUE: Noncontrast sagittal T1 spin echo and T2 fast echo, sagittal STIR, axial T1 and T2 fast spin echo through the lumbar spine. In cases with scoliosis, additional coronal T2 fast spin echo may be performed. COMPARISON: [facility], CR, XR LUMBAR SPINE 2-3V, 08/11/2019, 9:21. FINDINGS: Image quality: Excellent. Alignment and Curvature: There is mild L4-L5 and L5-S1 anterolisthesis. There is trace L1-L2, L2-L3 and L3-L4 retrolisthesis. Bone Marrow: Mild reactive endplate changes noted adjacent to the L1-L2 and L2-L3 discs. No acute vertebral body compression fractures. Spinal Cord: Conus medullaris terminates at the L1 level. Visualized cord demonstrates normal signal and size. Paraspinous Soft Tissues: No paravertebral masses. L1-L2: Loss of disc signal and height. Moderate, diffuse disc bulge. Kzog-vj-wplauptb narrowing of the central canal. Mild bilateral neural foraminal narrowing. No neural compression. L2-L3: Loss of disc signal. Mild, diffuse disc bulge. Mild bilateral facet hypertrophy. Mild to moderate narrowing of the central canal. Moderate bilateral neural foraminal narrowing. No neural compression. L3-L4: Loss of disc signal and slight loss of disc height. Mild, diffuse disc bulge. Mild bilateral facet hypertrophy. Mild to moderate narrowing of the central canal. Moderate bilateral neural foraminal narrowing. No neural compression. L4-L5: Loss of disc signal. Mild, diffuse disc bulge. [place] bilateral facet hypertrophy. Mild ligamentum flavum hypertrophy. Moderate narrowing of the central canal. Moderate bilateral neural foraminal narrowing. No neural compression. L5-S1: Loss of disc signal. Mild, diffuse disc bulge. Mild bilateral facet hypertrophy. No central stenosis. Moderate to severe bilateral neural foraminal narrowing with slight compression of the exiting L5 nerve roots. IMPRESSION: 1. Multilevel degenerate disc disease. 2. Multilevel facet arthropathy. 3. Moderate L4-L5 central canal narrowing. Lrot-yc-bziqendr L1-L2, L2-L3 and L3-L4 central canal narrowing. 4. Moderate to severe bilateral L5-S1 neural foraminal narrowing with slight compression of the exiting bilateral L5 nerve roots. Please correlate with clinical data. Dictated by: Cris Gottlieb MD, PhD on 02/22/2020 at 10:14 Approved by: Cris Gottlieb MD, PhD on 02/22/2020 at 10:22
== END ==
PROVIDERS: PCP Internal Medicine; Referring Provider Internal Medicine; Visit Provider Physical Medicine & Rehabilitation
DX: M54.5 Low back pain (principal); M47.816 Spondylosis without myelopathy or radiculopathy, lumbar region; M47.817 Spondylosis without myelopathy or radiculopathy, lumbosacral region; M51.36 Other intervertebral disc degeneration, lumbar region; M51.37 Other intervertebral disc degeneration, lumbosacral region; M48.061 Spinal stenosis, lumbar region without neurogenic claudication; M48.07 Spinal stenosis, lumbosacral region; M43.16 Spondylolisthesis, lumbar region; M43.17 Spondylolisthesis, lumbosacral region; K45.8 Other specified abdominal hernia without obstruction or gangrene
CPT/HCPCS: 72148; 99212

== ENCOUNTER → 2020-03-04 14:19 | Outpatient (CLI) | payer MEDICARE, OTHER, SELFPAY ==
[2020-01-03 10:42] VITALS: BMI 25.4
[2020-03-05 17:32] LABS: COVID19 Sendout Not Detected (Not Detect)
== END ==
PROVIDERS: PCP Internal Medicine; Visit Provider Physician Assistant
DX: Z11.59 Encounter for screening for other viral diseases (principal)
CPT/HCPCS: 87635

== ENCOUNTER 2020-03-07 14:06 | Emergency (ER) | payer MEDICARE, OTHER, SELFPAY ==
[2020-01-03 10:42] VITALS: BMI 25.4
[2020-03-07] VITALS (23 sets, daily range): BP systolic 112–192; BP diastolic 53–96; PULSE 64–86; RESP 15–32; TEMP 36.7; O2SAT 92–99
--- NOTE | 2020-03-07 14:13 | DI.CT.S_ITS ---
PROCEDURE: CT STROKE INDICATIONS: LEFT SIDED DEFICITS TECHNIQUE: Noncontrast 4.5 mm thick angled axial sections acquired from the foramen magnum to the vertex, with coronal reformats. For radiation dose reduction, the following was used: automated exposure control, adjustment of mA and/or kV according to patient size. COMPARISON: None. FINDINGS: Image quality: Excellent. CSF spaces: Basal cisterns are patent. No extra-axial fluid collections. Ventricles are normal in size and shape. Brain: No midline shift. No intracranial masses or hemorrhage. Subtle small area of hypodensity in the right basal ganglia. The subtle area of hypodensity in the left basal ganglia. Periventricular hypodensity consistent with chronic microvascular ischemic change. Age-related parenchymal loss. Skull and face: Calvarium and visualized facial bones are intact, without suspicious lesions. Sinuses: Mucosal thickening or mucous retention cyst in the left maxillary sinus. Mild mucosal thickening in the ethmoid sinuses. Mastoids are clear. IMPRESSION: No acute intracranial hemorrhage. Subtle areas of hypodensity in the right and left basal ganglia. These may be due to age indeterminate infarcts. Chronic microvascular ischemic disease. This study fulfills neurological imaging criteria for inclusion or exclusion of acute stroke therapies based on available published neurological imaging guidelines. Comment: Findings were discussed with Javed Holt at 2:20 pm. Reports weakness in the left arm and leg. Dictated by: Magdaleno Hinds M.D. on 03/07/2020 at 14:17 Approved by: Magdaleno Hinds M.D. on 03/07/2020 at 14:23
[2020-03-07] MEDS: SODIUM CHLORIDE 0.9% 1,000 ML 150 ML IV (14:15)
--- NOTE | 2020-03-07 14:19 | ED.NEUROSD ---
HPI - Neuro Symptoms/Deficit General Chief Complaint: Neuro Symptoms/Deficit Stated Complaint: left arm does not work, thinks stroke Time Seen by Provider: 03/07/20 14:12 Source: patient Mode of arrival: Ambulatory Limitations: no limitations History of Present Illness HPI Narrative: Patient here with complaints of left arm weakness. Patient awoke at 8:30 a.m. this morning with left arm weakness. Denies any other complaints. No numbness or tingling. No syncope no chest pain no back pain no headache. Patient stop taking metoprolol 1 week ago because it made his legs feel cold and causes confusion. Patient is not on any blood thinners no slurred speech or facial droop. No confusion. Patient and able to coordinate movement with his left arm. Denies any neck pain. Related Data Home Medications Medication Instructions Recorded Confirmed aspirin 81 mg PO DAILY #0 01/30/18 03/07/20 lisinopril 10 mg tablet 10 mg PO DAILY 08/11/19 03/07/20 metoprolol tartrate 25 mg tablet 12.5 mg PO DAILY tab 08/11/19 03/07/20 atorvastatin 40 mg PO DAILY 02/28/20 03/07/20 Previous Rx's Medication Instructions Recorded docusate sodium [Colace] 100 mg PO BID #40 cap 12/29/19 celecoxib 200 mg capsule 200 mg PO DAILY #30 cap 02/15/20 Allergies Allergy/AdvReac Type Severity Reaction Status Date / Time hyaluronate sodium, Allergy Mild Verified 03/07/20 14:36 stabilized HYLAN POLYMERS A & B Allergy Mild INFLAMMATION Uncoded 02/22/20 09:34 OF THE KNEES Review of Systems Review of Systems Narrative: GENERAL: Denies chills, fatigue, malaise, fever, sweats. HEENT: Denies sinus pain, ear pain, sore throat, difficulty swallowing, dizziness. RESPIRATORY: Denies dyspnea, cough, wheezing, hemoptysis, sputum. CARDIOVASCULAR: Denies chest pain, palpitations, orthopnea, edema, GASTROINTESTINAL: Denies nausea, vomiting, abdominal pain, diarrhea, constipation, melena. : Denies dysuria, frequency, incontinence, hematuria, urinary retention. MUSCULOSKELETAL: denies weakness, joint pain, or bony pain SKIN: Denies rash, skin lesions, or other NEUROLOGIC: Complains weakness, denies any headache, numbness, change in speech, confusion, seizures, complains of incoordination. PSYCHIATRIC: No concerning psychosocial issues. ROS Unobtainable: All systems reviewed & are unremarkable except as noted in HPI and below Patient History Medical History Coronary artery disease (Acute) Facet arthropathy, lumbar (Chronic) Foraminal stenosis of lumbar region (Chronic) HTN (hypertension) (Acute) Pre-diabetes (Acute) Surgical History Hx of exploratory laparotomy (Acute 12/27/19) Hx of heart artery stent (Acute) S/P small bowel resection (Acute) Status post appendectomy Status post hernia repair Family History Mother Breast implant removal status Social History household members: spouse Smoking Status: Former smoker alcohol intake: never Smoking Status: Former smoker Substance Use Type: does not use Exam Narrative Exam Narrative: GENERAL: patient appears stated age. Well-nourished, well-developed patient, in no distress, not toxic HEAD: Atraumatic. Normocephalic. EYES: Pupils equal round and reactive. Extraocular motions intact. No scleral icterus. No injection or drainage. ENT: Nose without bleeding, purulent drainage. Throat without erythema, tonsillar hypertrophy or exudate. Airway patent. NECK: Trachea midline. Non tender CARDIOVASCULAR: Regular rate and rhythm without murmurs, gallops, or rubs. RESPIRATORY: Clear to auscultation. Breath sounds equal bilaterally. No wheezes, rales, or rhonchi. GASTROINTESTINAL: Abdomen soft, non-tender, nondistended. EXTREMITIES: No edema or joint tenderness. BACK: Nontender without deformity or crepitance. No flank tenderness. NEURO: AOx4. Clear speech no facial droop light touch intact to bilateral face hands and feet. Strong bilateral patellar reflexes and ankle flexion extension. Weaker left oil well directional surveyor compared to the right. Has ataxia with the left arm SKIN: No rash or erythema of visible areas PSYCH: Not anxious, is cooperative Initial Vital Signs Initial Vital Signs: Vital Signs Temperature 98.1 F 03/07/20 14:10 Pulse Rate 81 03/07/20 14:10 Respiratory Rate 24 03/07/20 14:10 Blood Pressure 182/88 H 03/07/20 14:10 Pulse Oximetry 99 03/07/20 14:10 Scores NIH Stroke Scale Level of Conciousness: Alert, keenly responsive Ask month/age: Answers both questions correctly. Open/close eyes, close hand: Performs both tasks correctly Best gaze horizontal: Normal Visual espinal: No visual loss Facial palsy: Normal symetrical movement Left arm drift: Drifts down, not to bed Right arm drift: No drift for full 10 sec Left leg drift: No drift for full 10 sec Right leg drift: No drift for full 10 sec Limb ataxia: Present in one limb Sensory on face/arms/legs: Normal, no sensory loss Best language: No aphasia, normal Dysarthria: Normal Extinction or inattention: No abnormality Total NIH Stroke scale score: 2 Course Course Course Narrative: Time 2:[address] with radiologist CT scan of the head no acute process Decision to Admit Date: 03/07/20 Decision to Admit time: 18:00 Orders Ordered: ED Orders 03/07/20 14:13 CT Stroke Stat EKG-12 Lead Stat 03/07/20 14:24 CT angio head and neck Stat 03/07/20 14:27 Complete Blood Count AUTO DIFF Stat Comprehensive Metabolic Panel Stat Partial Thromboplastin Time Stat Prothrombin Time INR Stat Troponin & CK Cardiac Panel Stat 03/07/20 16:02 Urine Drug Screen, Rapid Stat Sodium Chloride (Normal Saline 0.9%) 1,000 mls @ 150 mls/hr IV CONT DIANN Last Infusion: 03/07/20 17:06 Dose: 0 mls/hr Documented by: Admin: 03/07/20 14:15 Dose: 150 mls/hr Documented by: POLLY Discontinued Medications Aspirin (Aspirin Chew) 324 mg PO NOW ONE Stop: 03/07/20 15:20 Last Admin: 03/07/20 15:32 Dose: 324 mg Documented by: POLLY Reevaluation(s) Reevaluation #1: No new issues at this time.. pt aware and as well we do not have mri operable here...no bed at [facility] or [facility]...will txr to [facility], blood pressure improved 165/96. Patient eating dinner Time: 18:01 Additional Reevaluation(s): s/w dr simental..will not admit, d/t no mri Consultations Consultation #1: Spoke with [place] stroke team Dr. Hernadez. At this time patient is outside the window for any tPA. This is 6 hours post event. Patient awoke at 8:30 a.m. this morning with symptoms. Awaiting CTA results. Calling back give abnormality of the CTA. Possible candidate for endovascular intervention. Admit patient for MRI MRA Time: 14:34 Consultation #2: Spoke with [facility] Dr. arias, hospitalist, will accept patient l Time: 18:07 Vital Signs Vital signs: Vital Signs - 8 hr 03/07/20 14:10 03/07/20 14:22 03/07/20 14:23 Temperature 98.1 F Pulse Rate 81 81 Respiratory Rate 24 Blood Pressure 182/88 H 182/88 H Pulse Oximetry 99 92 96 03/07/20 14:30 03/07/20 14:45 03/07/20 15:00 Temperature Pulse Rate 75 74 67 Respiratory Rate 19 21 21 Blood Pressure Pulse Oximetry 97 96 97 03/07/20 15:15 03/07/20 15:30 03/07/20 15:45 Temperature Pulse Rate 68 71 64 Respiratory Rate 18 20 22 Blood Pressure 148/66 H 112/53 L Pulse Oximetry 96 96 96 03/07/20 16:00 03/07/20 16:01 03/07/20 16:15 Temperature Pulse Rate 80 86 79 Respiratory Rate 20 Blood Pressure 192/84 H Pulse Oximetry 97 96 97 03/07/20 16:30 03/07/20 16:31 03/07/20 16:45 Temperature Pulse Rate 84 80 71 Respiratory Rate 17 26 H Blood Pressure 169/71 H Pulse Oximetry 96 94 94 03/07/20 17:00 03/07/20 17:01 03/07/20 17:15 Temperature Pulse Rate 74 68 74 Respiratory Rate 22 25 H 19 Blood Pressure 153/71 H Pulse Oximetry 95 95 96 03/07/20 17:30 03/07/20 17:31 Temperature Pulse Rate 72 75 Respiratory Rate 19 Blood Pressure 165/96 H Pulse Oximetry MDM - Neuro Symptoms/Deficit Differential Diagnosis Differential diagnosis: Likely cerebrovascular accident and transient cerebral ischemia Lab Data Result diagrams: 03/07/20 14:27 03/07/20 14:27 Labs: Lab Results 03/07/20 03/07/20 03/07/20 Range/Units 14:27 14:27 14:27 WBC 6.1 (4.5-11.0) X10^3/uL RBC 4.33 L (4.5-5.9) X10^6/uL Hgb 13.5 (13.5-17.5) g/dL Hct 39.6 L (41-53) % MCV 91.5 (80-100) fL MCH 31.1 (26-34) PG MCHC 34.0 (30-36) % RDW 14.1 (11.6-14.8) % Plt Count 157 (150-400) X10^3/uL Neut % (Auto) 64.2 (50-75) % Lymph % (Auto) 20.9 L (25-40) % [place] % (Auto) 8.5 (3-14) % Eos % (Auto) 5.2 H (2-4) % Baso % (Auto) 1.2 (0-2) % Neut # (Auto) 3900 (4820-2521) /uL Lymph # (Auto) 1300 (2010-3026) /uL [place] # (Auto) 500 (0-900) /uL Eos # (Auto) 300 (0-450) /uL Baso # (Auto) 100 (0-100) /uL PT 12.9 H (10.1-12.7) SECONDS INR 1.1 (0.9-1.3) APTT 33 (26.4-36.2) SECONDS Sodium 136 L (137-145) mmol/L Potassium 4.0 (3.4-5.1) mmol/L Chloride 101 (98-107) mmol/L Carbon Dioxide 28 (22-32) mmol/L BUN 18 (9-20) mg/dL Creatinine 0.82 (0.66-1.25) mg/dL Estimated GFR > 60.0 (>60) mL/min BUN/Creatinine Ratio 22.0 (6-22) Glucose 102 (80-110) mg/dL Calcium 9.2 (8.4-10.2) mg/dL Total Bilirubin 0.5 (0.2-1.3) mg/dL AST 21 (17-59) IU/L ALT 16 (<50) IU/L Alkaline Phosphatase 51 (38-126) U/L Total Creatine Kinase 69 (55-170) U/L CK-MB (CK-2) TNP CK-MB (CK-2) Rel Index TNP Troponin I < 0.012 (0.01-0.034) ng/mL Total Protein 6.5 (6.3-8.2) g/dL Albumin 3.9 (3.5-5.0) g/dL Globulin 2.6 (1.7-4.1) g/dL Albumin/Globulin Ratio 1.5 (1.0-2.8) U Opiates 300ng/mL cut (Negative) Ur Oxycodone Screen (Negative) Urine Methadone Screen (Negative) Ur Barbiturates Screen (Negative) U Tricyclic Antidepress (Negative) Ur Phencyclidine Scrn (Negative) Ur Amphetamines Screen (Negative) U Methamphetamines Scrn (Negative) Ur MDMA Scrn (Ecstasy) (Negative) U Benzodiazepines Scrn (Negative) Urine Cocaine Screen (Negative) U Marijuana (THC) Screen (Negative) COVID-19 PCR (Negative) 03/07/20 03/07/20 Range/Units 15:40 16:02 WBC (4.5-11.0) X10^3/uL RBC (4.5-5.9) X10^6/uL Hgb (13.5-17.5) g/dL Hct (41-53) % MCV (80-100) fL MCH (26-34) PG MCHC (30-36) % RDW (11.6-14.8) % Plt Count (150-400) X10^3/uL Neut % (Auto) (50-75) % Lymph % (Auto) (25-40) % [place] % (Auto) (3-14) % Eos % (Auto) (2-4) % Baso % (Auto) (0-2) % Neut # (Auto) (8938-3605) /uL Lymph # (Auto) (3136-9246) /uL [place] # (Auto) (0-900) /uL Eos # (Auto) (0-450) /uL Baso # (Auto) (0-100) /uL PT (10.1-12.7) SECONDS INR (0.9-1.3) APTT (26.4-36.2) SECONDS Sodium (137-145) mmol/L Potassium (3.4-5.1) mmol/L Chloride (98-107) mmol/L Carbon Dioxide (22-32) mmol/L BUN (9-20) mg/dL Creatinine (0.66-1.25) mg/dL Estimated GFR (>60) mL/min BUN/Creatinine Ratio (6-22) Glucose (80-110) mg/dL Calcium (8.4-10.2) mg/dL Total Bilirubin (0.2-1.3) mg/dL AST (17-59) IU/L ALT (<50) IU/L Alkaline Phosphatase (38-126) U/L Total Creatine Kinase (55-170) U/L CK-MB (CK-2) CK-MB (CK-2) Rel Index Troponin I (0.01-0.034) ng/mL Total Protein (6.3-8.2) g/dL Albumin (3.5-5.0) g/dL Globulin (1.7-4.1) g/dL Albumin/Globulin Ratio (1.0-2.8) U Opiates 300ng/mL cut Negative (Negative) Ur Oxycodone Screen Negative (Negative) Urine Methadone Screen Negative (Negative) Ur Barbiturates Screen Negative (Negative) U Tricyclic Antidepress Negative (Negative) Ur Phencyclidine Scrn Negative (Negative) Ur Amphetamines Screen Negative (Negative) U Methamphetamines Scrn Negative (Negative) Ur MDMA Scrn (Ecstasy) Negative (Negative) U Benzodiazepines Scrn Negative (Negative) Urine Cocaine Screen Negative (Negative) U Marijuana (THC) Screen Negative (Negative) COVID-19 PCR Negative (Negative) Urine Dip Bedside Urine Glucose Negative Bedside Urine Bilirubin - Negative Bedside Urine Ketone - Negative Urine Specific [place] 1.010 Bedside Urine Occult Blood - Negative Bedside Urine pH 6.0 Bedside Urine Protein - Negative Bedside Urine Urobilinogen - Negative Bedside Urine Nitrite - Negative Bedside Urine Leukocytes - Negative Esterase Imaging Data CTA - brain/neck: Radiologist's Impression: [address] [address] [address] Scan Report Signed Patient: Pipe Lugo R#: [id number] : 1Acct:[id number] Age/Sex: 79 / MDate of Service: 03/07/20 Loc: ED Accession Number: [id number] Procedure: CT angio head and neck Ordering Provider: Javed Holt MD PROCEDURE: CT ANGIO HEAD AND NECK INDICATIONS: Weakness. LEFT SIDED DEFICET TECHNIQUE: Pre-contrast 4.5 mm thick sections acquired from the foramen magnum to the vertex. After the administration of intravenous contrast, 1 mm thick sections acquired from the aortic arch through the [place]. Post-contrast 4.5 mm thick sections then re-acquired from the foramen magnum to the vertex. 3-dimensional wkktsox-adkfkpuox-pmmwdfyymb (MIP) and/or volume rendering reformats were acquired of the central intracranial vasculature and neck separately. COMPARISON: [facility], CT, CT STROKE, 03/07/2020, 14:09. FINDINGS: Image quality: Excellent. BRAIN: The ventricular system and cortical sulci demonstrate atrophy, consistent for the patient's stated age. There are areas of hypodensity within the periventricular and subcortical white matter. There is no acute intra-or extra axial fluid collection. No acute hemorrhage, mass lesion or midline shift. Brainstem is unremarkable. Low-attenuation foci are present within the basal ganglia bilaterally suspected represent old areas of lacunar ischemia. Globes are symmetrical. Sinuses are aerated. Osseous structures are intact. HEAD CT ANGIOGRAPHY: Anterior circulation: Intracranial internal carotid arteries are normal in size and flow. The flow within the paired anterior cerebral arteries is normal and symmetric. The flow within the middle cerebral arteries is normal and symmetric. The anterior communicating artery is seen. No aneurysms are seen. Posterior circulation: Visualized portions of the vertebral arteries demonstrate normal caliber, and join to form a normal appearing basilar artery. Flow within the posterior cerebral arteries is normal and symmetric. No aneurysms are seen. NECK CT ANGIOGRAPHY: The origins of the left and right common, right internal and bilateral external carotid arteries demonstrate no areas of hemodynamically significant stenosis, vascular occlusion or aneurysmal dilation. There is approximately 58% stenosis of right internal carotid artery. Origins of the left and right vertebral arteries demonstrate no areas of hemodynamically significant stenosis, vascular occlusion or aneurysmal dilation. 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 Limited, visualized portions of the subclavian vasculature are unremarkable. IMPRESSION: 1. No definitive acute intracranial process. Low-attenuation foci within the basal ganglia with appearance of chronic microvascular ischemia. 2. Moderate atrophy and chronic microvascular ischemic changes. 3. Approximate 58% stenosis of the right internal carotid artery. Any quantitative measurements of stenosis were performed using NASCET criteria. Dictated by: Kelile Harding M.D. on 03/07/2020 at 15:18 Approved by: Kellie Harding M.D. on 03/07/2020 at 15:29 ECG Data Attestation: I personally reviewed and interpreted this ECG as follows: Interpretation: Sinus rhythm no ST elevation depression. Rate 78 MDM Narrative Medical decision making narrative: No tPA and no endovascular studies, stroke team consult Dr. Hernadez, we do not have MRI capacity at this time. It is inoperable. Will need to transfer patient Stroke Core Measures Exclusion Criteria TPA in CVA: Symptom Onset >3 or 4.5 Hours Discharge Plan Departure Patient Disposition: General Acute Hospital Clinical Impression: Acute embolic stroke Prescriptions: No Action aspirin 81 mg Tablet,Delayed Release (Dr/Ec) 81 mg PO DAILY Qty: 0 RF: 0 atorvastatin 40 mg Tablet 40 mg PO DAILY RF: 0 docusate sodium [Colace] 100 mg capsule 100 mg PO BID Qty: 40 RF: 0 lisinopril 10 mg tablet 10 mg PO DAILY RF: 0 metoprolol tartrate 25 mg tablet 12.5 mg PO DAILY RF: 0 celecoxib [Celebrex] 200 mg capsule 200 mg PO DAILY Qty: 30 RF: 2 Referrals: Fernie March MD [Primary Care Provider] -
--- NOTE | 2020-03-07 14:24 | DI.CT.S_ITS ---
PROCEDURE: CT ANGIO HEAD AND NECK INDICATIONS: Weakness. LEFT SIDED DEFICET TECHNIQUE: Pre-contrast 4.5 mm thick sections acquired from the foramen magnum to the vertex. After the administration of intravenous contrast, 1 mm thick sections acquired from the aortic arch through the [place]. Post-contrast 4.5 mm thick sections then re-acquired from the foramen magnum to the vertex. 3-dimensional lptkxax-iqqgsuzyz-sbdmgnbmma (MIP) and/or volume rendering reformats were acquired of the central intracranial vasculature and neck separately. COMPARISON: [facility], CT, CT STROKE, 03/07/2020, 14:09. FINDINGS: Image quality: Excellent. BRAIN: The ventricular system and cortical sulci demonstrate atrophy, consistent for the patient's stated age. There are areas of hypodensity within the periventricular and subcortical white matter. There is no acute intra-or extra axial fluid collection. No acute hemorrhage, mass lesion or midline shift. Brainstem is unremarkable. Low-attenuation foci are present within the basal ganglia bilaterally suspected represent old areas of lacunar ischemia. Globes are symmetrical. Sinuses are aerated. Osseous structures are intact. HEAD CT ANGIOGRAPHY: Anterior circulation: Intracranial internal carotid arteries are normal in size and flow. The flow within the paired anterior cerebral arteries is normal and symmetric. The flow within the middle cerebral arteries is normal and symmetric. The anterior communicating artery is seen. No aneurysms are seen. Posterior circulation: Visualized portions of the vertebral arteries demonstrate normal caliber, and join to form a normal appearing basilar artery. Flow within the posterior cerebral arteries is normal and symmetric. No aneurysms are seen. NECK CT ANGIOGRAPHY: The origins of the left and right common, right internal and bilateral external carotid arteries demonstrate no areas of hemodynamically significant stenosis, vascular occlusion or aneurysmal dilation. There is approximately 58% stenosis of right internal carotid artery. Origins of the left and right vertebral arteries demonstrate no areas of hemodynamically significant stenosis, vascular occlusion or aneurysmal dilation. 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 Limited, visualized portions of the subclavian vasculature are unremarkable. IMPRESSION: 1. No definitive acute intracranial process. Low-attenuation foci within the basal ganglia with appearance of chronic microvascular ischemia. 2. Moderate atrophy and chronic microvascular ischemic changes. 3. Approximate 58% stenosis of the right internal carotid artery. Any quantitative measurements of stenosis were performed using NASCET criteria. Dictated by: Kellie Harding M.D. on 03/07/2020 at 15:18 Approved by: Kellie Harding M.D. on 03/07/2020 at 15:29
[2020-03-07 14:36] LABS: Add Manual Diff / Slide Review NO; Basophils Absolute Auto 100 /uL (0-100); Basophils Percent Auto 1.2 % (0-2); Eosinophils Absolute Auto 300 /uL (0-450); Eosinophils Percent Auto 5.2 % (2-4); Hematocrit 39.6 % (41-53); Hemoglobin 13.5 g/dL (13.5-17.5); Lymphocytes Absolute Auto 1300 /uL (1100-4500); Lymphocytes Percent Auto 20.9 % (25-40); Mean Corpuscular Hemoglobin 31.1 PG (26-34); Mean Corpuscular Volume 91.5 fL (80-100); Monocytes Absolute Auto 500 /uL (0-900); Monocytes Percent Auto 8.5 % (3-14); Neutrophils Absolute Auto 3900 /uL (1500-7000); Neutrophils Percent Auto 64.2 % (50-75); Platelet Count 157 X10^3/uL (150-400); Red Blood Cell Count 4.33 X10^6/uL (4.5-5.9); Red Cell Distribution Width 14.1 % (11.6-14.8); White Blood Cell Count 6.1 X10^3/uL (4.5-11.0)
[2020-03-07 14:43] LABS: INR 1.1 (0.9-1.3); Prothrombin Time 12.9 SECONDS (10.1-12.7)
[2020-03-07 14:45] LABS: PTT Partial Thromboplastin Tim 33 SECONDS (26.4-36.2)
[2020-03-07 14:47] LABS: Alanine Aminotransferase 16 IU/L (<50); Albumin 3.9 g/dL (3.5-5.0); Albumin Globulin Ratio 1.5 (1.0-2.8); Alkaline Phosphatase 51 U/L (38-126); Aspartate Aminotransferase 21 IU/L (17-59); Bilirubin Total 0.5 mg/dL (0.2-1.3); Blood Urea Nitrogen 18 mg/dL (9-20); Calcium 9.2 mg/dL (8.4-10.2); Carbon Dioxide 28 mmol/L (22-32); Chloride 101 mmol/L (98-107); Creatine Kinase 69 U/L (55-170); Estimated Glomerular Filt Rate > 60.0 mL/min (>60); Globulin 2.6 g/dL (1.7-4.1); Glucose 102 mg/dL (80-110); HEMOLYSIS < 15 (0-50); Sodium 136 mmol/L (137-145); Total Protein 6.5 g/dL (6.3-8.2)
[2020-03-07 14:59] LABS: Troponin I < 0.012 ng/mL (0.01-0.034)
[2020-03-07] MEDS: ASPIRIN 81 MG CHEW TAB 324 MG PO (15:32)
[2020-03-07 16:15] LABS: UR Morphine/Opiate cutoff 300 Negative (Negative); Ur Creatinine Normal (Normal); Ur Specific Gravity Normal (Normal); Urine Amphetamines Negative (Negative); Urine Barbiturates Negative (Negative); Urine Benzodiazepines Negative (Negative); Urine Cocaine Negative (Negative); Urine MDMA Negative (Negative); Urine Methadone Negative (Negative); Urine Methamphetamines Negative (Negative); Urine Oxycodone Negative (Negative); Urine Phencyclidine Negative (Negative); Urine Tetrahydrocannabinol Negative (Negative); Urine Tricyclic Antidepressant Negative (Negative); Urine pH Normal (Normal)
[2020-03-07 16:47] LABS: COVID19 -Nasal RAPID Negative (Negative)
--- NOTE | 2020-03-07 20:35 | PC.NURSE ---
Report to [facility]rost[facility] RN.
== END 2020-03-07 20:15 | disposition short-term general hospital (02) ==
PROVIDERS: Emergency Provider Emergency Medicine; PCP Internal Medicine
DX: I63.9 Cerebral infarction, unspecified (principal); I10 Essential (primary) hypertension; I25.10 Atherosclerotic heart disease of native coronary artery without angina pectoris; Z11.59 Encounter for screening for other viral diseases
CPT/HCPCS: 36415; 70450; 70496; 70498; 80053; 80305; 81003; 82550; 84484; 85025; 85610; 85730; 87635; 93005; 93010; 96360; 96361; 99285; Q9967

== ENCOUNTER → 2020-05-09 07:50 | Outpatient (CLI) | payer MEDICARE, OTHER, SELFPAY ==
[2020-01-03 10:42] VITALS: BMI 25.4
[2020-05-09 08:52] LABS: Alanine Aminotransferase 21 IU/L (<50); Albumin 4.3 g/dL (3.5-5.0); Albumin Globulin Ratio 1.7 (1.0-2.8); Alkaline Phosphatase 59 U/L (38-126); Aspartate Aminotransferase 25 IU/L (17-59); BUN Creatinine Ratio 23.9 (6-22); Bilirubin Total 0.8 mg/dL (0.2-1.3); Blood Urea Nitrogen 17 mg/dL (9-20); Calcium 9.5 mg/dL (8.4-10.2); Carbon Dioxide 28 mmol/L (22-32); Chloride 106 mmol/L (98-107); Cholesterol 116 mg/dL (140-199); Estimated Glomerular Filt Rate > 60.0 mL/min (>60); Globulin 2.6 g/dL (1.7-4.1); Glucose 99 mg/dL (80-110); HDL Cholesterol 52 mg/dL (40-60); HEMOLYSIS < 15 (0-50); LDL Cholesterol Calculated 52 mg/dL (<100); Potassium 4.6 mmol/L (3.4-5.1); Sodium 139 mmol/L (137-145); Total Protein 6.9 g/dL (6.3-8.2); Triglycerides 62 mg/dL (35-150)
== END ==
PROVIDERS: PCP Internal Medicine; Referring Provider Internal Medicine; Visit Provider Internal Medicine
DX: E78.2 Mixed hyperlipidemia (principal); E78.5 Hyperlipidemia, unspecified
CPT/HCPCS: 36415; 80053; 80061

== ENCOUNTER 2020-05-17 12:33 | Outpatient (CLI) | payer MEDICARE, OTHER, SELFPAY ==
[2020-01-03 10:42] VITALS: BMI 25.4
[2020-05-17] VITALS (12 sets, daily range): BP systolic 106–175; BP diastolic 53–97; PULSE 61–75; RESP 12–19; TEMP 35.4; O2SAT 91–98
--- NOTE | 2020-05-17 12:37 | DI.RAD.S_ITS ---
PROCEDURE: PAIN L/S FACET INJ/BLK 1ST [facility] COMPARISON: [facility], CR, XR LUMBAR SPINE 2-3V, 08/11/2019, 9:21. INDICATIONS: SPONDYLOSIS FINDINGS: 6 intraoperative images demonstrate needle placement at L4-L5 and L5-S1 facet joints bilaterally. IMPRESSION: Fluoroscopy for pain management. Dictated by: Irma Piña M.D. on 05/17/2020 at 14:12 Approved by: Irma Piña M.D. on 05/17/2020 at 14:13
[2020-05-17] MEDS: fentaNYL 100 MCG/2 ML INJ 50 MCG IV (13:44)
[2020-05-17] MEDS: MIDAZOLAM 5 MG/5 ML VIAL IV (13:46)
[2020-05-17] MEDS: IOPAMIDOL 15 ML VIAL 3 ML INJ (13:49)
[2020-05-17] MEDS: LIDOCAINE 1% 20 ML 10 ML INJ (13:49)
[2020-05-17] MEDS: BUPIVACAINE 0.5% (PF) VIAL 5 ML INJ (13:51)
[2020-05-17] MEDS: BETAMETHASONE 30 MG/5 ML MDV 12 MG INJ (13:52)
--- NOTE | 2020-05-17 14:02 | P.PCN_ITS ---
Date/Time/Diagnoses Date of procedure: 05/17/20 Time of procedure: 14:02 Pre-procedure diagnosis: 1. FACET ARTHROPATHY 2. AXIAL LBP 3. MULTILEVEL DDD Post-procedure diagnosis: same Procedure Notes Procedure: 1. FLUOROSCOPICALLY GUIDED CONTRAST CONTROLLED FACET JOINT INJECTIONS BILATERAL L4/5, L5/S1 Indications: Pipe is referred by Dr. March for treatment of Axial LBP Physician: Presley Baca Total Fluoroscopy time (seconds): 9 Total sedation minutes: 9 Complications: none Procedure in detail & Post-procedure care: FINDINGS Multilevel Facet Arthropathy with Clinically significant axial LBP DESCRIPTION OF PROCEDURE Fluoroscopically guided, contrast-controlled bilateral L4/5, L5/S1 facet joint injections. Following review of allergy and review of potential side effects and complications, including, but not necessarily limited to, infection, allergic reaction, local tissue breakdown, stroke, temporary or permanent nerve injury, paralysis, and possible , the patient indicated that the patient understood and agreed to proceed. An informed consent document was signed by the patient, witnessed by a nurse, and placed in the patient's chart. Additionally, other treatment options including medications, modalities, and physical therapy were reviewed with the patient. After review of previous anaesthesic history and IV conscious sedation the patient was deemed safe to proceed with today?s procedure with IV conscious sedation as ASA class II designation. Safety time-out was performed to confirm patient ID, procedure to be performed and site of procedure. IV sedation was accomplished with a combination of 4mg of Versed and 50mcg of Fentanyl was administered by the RN after DO order, titrated to patient comfort during the course of the procedure while the patient remained responsive to all verbal commands In the prone position, following sterile prep and drape of the lumbar region, the posterior aspect of the L4/5, L5/S1 facet joints were identified fluoroscopically. The skin was anesthetized via a 25-gauge 1.5inch needle with 1% lidocaine solution into the corresponding facet joints. At this point, a 22- gauge 3.5-inch spinal needle was atraumatically introduced and advanced under fluoroscopic guidance into the corresponding facet joints. Following negative aspiration, injections of approximately 0.2cc of Isovue 200 confirmed interart icular placement without vascular uptake. The identical procedure was then performed at the L4/5, L5/S1 facet joints on the left. Radiological data, including multiple fluoroscopic views of the lumbosacral spine, reveal a spinal needle at the L4/5, L5/S1 facet joints bilaterally. Subsequent views show flow of contrast material both superiorly and inferiorly within the joint space without vascular or intrathecal uptake. At this point, a total of 0.5cc including a mixture of 0.25cc Marcaine and 0.25cc betamethasone was injected without complication into each of the corresponding facet joints. The patient tolerated the procedure well without signs or symptoms of complications prior to transfer to the recovery area continued monitoring without incident. The patient was then transferred to the recovery area where they were observed for an appropriate period of time after the injection. The patient reported a VAS score of 7 prior to the procedure and a post- procedure VAS of 0. POST OP INSTRUCTIONS The patient was provided a Pain Log to continue to record their response to the target-specific procedure prior to follow-up visit with their referring physician. Additionally, specific post-injection care instructions and a contact number to our office were provided if concerns arise regarding possible complications associated with the procedure are suspected.
== END 2020-05-17 15:04 | disposition home or self-care (01) ==
LOC: RAD 12:35
PROVIDERS: PCP Internal Medicine; Referring Provider Physical Medicine & Rehabilitation; Visit Provider Physical Medicine & Rehabilitation
DX: M47.816 Spondylosis without myelopathy or radiculopathy, lumbar region (principal); M54.5 Low back pain; M51.36 Other intervertebral disc degeneration, lumbar region
CPT/HCPCS: 64493; 64494; J0702; J2250; J3010

== ENCOUNTER → 2020-08-24 14:13 | Outpatient (CLI) | payer MEDICARE, OTHER, SELFPAY ==
[2020-01-03 10:42] VITALS: BMI 25.4
[2020-08-24] MEDS: COVID-19 VACC #1, MRNA(MOD) 100 MCG/0.5 ML VIAL IM (14:20)
== END ==
PROVIDERS: PCP Internal Medicine; Visit Provider Internal Medicine
DX: Z23 Encounter for immunization (principal)
CPT/HCPCS: 0011A; 91301

== ENCOUNTER → 2020-09-20 12:54 | Outpatient (CLI) | payer MEDICARE, OTHER, SELFPAY ==
[2020-01-03 10:42] VITALS: BMI 25.4
[2020-09-20] MEDS: COVID-19 VACC #2, MRNA(MOD) 100 MCG/0.5 ML VIAL IM (12:59)
== END ==
PROVIDERS: PCP Internal Medicine; Visit Provider Internal Medicine
DX: Z23 Encounter for immunization (principal)
CPT/HCPCS: 0012A; 91301

== ENCOUNTER → 2020-11-19 11:39 | Outpatient (CLI) | payer MEDICARE, OTHER, SELFPAY ==
[2020-01-03 10:42] VITALS: BMI 25.4
--- NOTE | 2020-11-19 12:18 | DI.RAD.S_ITS ---
PROCEDURE: XR CHEST 2V INDICATIONS: PNEUMONIA TECHNIQUE: 2 views of the chest were acquired. COMPARISON: [facility], CR, XR CHEST 1V, 01/30/2018, 4:35. FINDINGS: Surgical changes and devices: None. Lungs and pleura: No pneumothorax. Small right pleural effusion with adjacent atelectasis. Mediastinum: Mediastinal contours are normal. Heart size is normal. Bones and chest wall: No suspicious bony abnormalities. Soft tissues appear unremarkable. IMPRESSION: Small right pleural effusion with adjacent atelectasis Dictated by: Lul Sharma M.D. on 11/19/2020 at 14:20 Approved by: Lul Sharam M.D. on 11/19/2020 at 14:21
== END ==
PROVIDERS: PCP Internal Medicine; Referring Provider Internal Medicine; Visit Provider Internal Medicine
DX: J69.0 Pneumonitis due to inhalation of food and vomit (principal); J90 Pleural effusion, not elsewhere classified; J98.11 Atelectasis
CPT/HCPCS: 71046

== ENCOUNTER → 2020-11-24 11:05 | Outpatient (CLI) | payer MEDICARE, OTHER, SELFPAY ==
[2020-01-03 10:42] VITALS: BMI 25.4
[2020-11-24 11:25] LABS: Add Manual Diff / Slide Review NO; Basophils Absolute Auto 100 /uL (0-100); Eosinophils Absolute Auto 100 /uL (0-450); Eosinophils Percent Auto 0.9 % (2-4); Hematocrit 33.1 % (41-53); Hemoglobin 11.2 g/dL (13.5-17.5); Lymphocytes Absolute Auto 600 /uL (1100-4500); Lymphocytes Percent Auto 7.4 % (25-40); Mean Corpuscular HGB Conc 33.8 % (30-36); Mean Corpuscular Hemoglobin 29.9 PG (26-34); Mean Corpuscular Volume 88.7 fL (80-100); Monocytes Absolute Auto 700 /uL (0-900); Monocytes Percent Auto 8.1 % (3-14); Neutrophils Absolute Auto 7000 /uL (1500-7000); Neutrophils Percent Auto 82.6 % (50-75); Platelet Count 415 X10^3/uL (150-400); Red Blood Cell Count 3.73 X10^6/uL (4.5-5.9); Red Cell Distribution Width 13.8 % (11.6-14.8); White Blood Cell Count 8.5 X10^3/uL (4.5-11.0)
== END ==
PROVIDERS: PCP Internal Medicine; Referring Provider Internal Medicine; Visit Provider Internal Medicine
DX: I10 Essential (primary) hypertension (principal); I25.10 Atherosclerotic heart disease of native coronary artery without angina pectoris
CPT/HCPCS: 36415; 85025

== ENCOUNTER → 2020-11-27 15:07 | Outpatient (ROUT) | payer MEDICARE, OTHER, SELFPAY ==
[2020-01-03 10:42] VITALS: BMI 25.4
[2020-11-27 15:43] LABS: Add Manual Diff / Slide Review NO; Basophils Absolute Auto 100 /uL (0-100); Basophils Percent Auto 1.3 % (0-2); Eosinophils Absolute Auto 100 /uL (0-450); Eosinophils Percent Auto 0.9 % (2-4); Hematocrit 33.2 % (41-53); Hemoglobin 11.3 g/dL (13.5-17.5); Lymphocytes Absolute Auto 800 /uL (1100-4500); Mean Corpuscular HGB Conc 34.1 % (30-36); Mean Corpuscular Hemoglobin 30.1 PG (26-34); Mean Corpuscular Volume 88.4 fL (80-100); Monocytes Absolute Auto 600 /uL (0-900); Monocytes Percent Auto 9.6 % (3-14); Neutrophils Absolute Auto 5000 /uL (1500-7000); Neutrophils Percent Auto 76.2 % (50-75); Platelet Count 389 X10^3/uL (150-400); Red Blood Cell Count 3.76 X10^6/uL (4.5-5.9); Red Cell Distribution Width 13.8 % (11.6-14.8); White Blood Cell Count 6.6 X10^3/uL (4.5-11.0)
[2020-11-27 15:46] LABS: HEMOLYSIS < 15 (0-50); Potassium 4.5 mmol/L (3.4-5.1)
[2020-11-27 15:49] LABS: Alanine Aminotransferase 76 IU/L (<50); Albumin 3.2 g/dL (3.5-5.0); Alkaline Phosphatase 133 U/L (38-126); Aspartate Aminotransferase 58 IU/L (17-59); BUN Creatinine Ratio 19.6 (6-22); Bilirubin Total 0.4 mg/dL (0.2-1.3); Blood Urea Nitrogen 11 mg/dL (9-20); C-Reactive Protein Quant 5.8 mg/dL (<1.0); Calcium 9.6 mg/dL (8.4-10.2); Carbon Dioxide 26 mmol/L (22-32); Chloride 100 mmol/L (98-107); Estimated Glomerular Filt Rate > 60.0 mL/min (>60); Globulin 3.3 g/dL (1.7-4.1); Glucose 107 mg/dL (80-110); Sodium 135 mmol/L (137-145); Total Protein 6.5 g/dL (6.3-8.2)
[2020-11-27 16:13] LABS: Erythrocyte Sedimentation Rate 68 MM/HR (0-15)
== END ==
PROVIDERS: PCP Internal Medicine; Visit Provider Internal Medicine
DX: R06.00 Dyspnea, unspecified (principal); R50.9 Fever, unspecified
CPT/HCPCS: 80053; 85025; 85651; 86140

== ENCOUNTER → 2023-03-18 10:01 | Outpatient (CLI) | payer MEDICARE, OTHER, SELFPAY ==
[2022-12-30 15:16] VITALS: BMI 25.4
--- NOTE | 2023-03-18 10:02 | DI.RAD.S_ITS ---
PROCEDURE: XR LUMBAR SPINE MIN 4V INDICATIONS: BACK PAIN TECHNIQUE: 5 views of the lumbar spine were acquired, including bilateral oblique views. COMPARISON: [facility], , XR LUMBAR SPINE 2-3V, 08/11/2019, 9:21. FINDINGS: Bones: 5 nonrib-bearing vertebrae are present. Mild levocurvature of the lumbar spine. Grade 1 anterolisthesis of L4 on L5 and L5 on S1 is stable compared to prior. Grade 1 retrolisthesis of L2 on L3 is stable. There is multilevel facet arthropathy, worse at L4-5 and L5-S1. Mild multilevel disc height loss with degenerative endplate changes and spurring is present. This is most pronounced at L1-L2 and L5-S1.. No vertebral body compression fractures. No suspicious bony lesions. Soft tissues: Overlying bowel gas pattern is normal. No suspicious soft tissue calcifications. Atherosclerotic vascular calcifications. 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 IMPRESSION: Degenerative changes of the lumbar spine as described above. Grade 1 anterolisthesis of L5 on S1 with associated pars interarticularis defects. Dictated by: Artemio Luther M.D. on 03/18/2023 at 10:41 Approved by: Artemio Luther M.D. on 03/18/2023 at 10:43
== END ==
PROVIDERS: PCP Family Medicine; Referring Provider Physical Medicine & Rehabilitation; Visit Provider Physical Medicine & Rehabilitation
DX: M47.816 Spondylosis without myelopathy or radiculopathy, lumbar region (principal); M47.817 Spondylosis without myelopathy or radiculopathy, lumbosacral region; M48.061 Spinal stenosis, lumbar region without neurogenic claudication; M43.17 Spondylolisthesis, lumbosacral region; M53.3 Sacrococcygeal disorders, not elsewhere classified; M35.3 Polymyalgia rheumatica; M54.12 Radiculopathy, cervical region
CPT/HCPCS: 72110; 99214

== ENCOUNTER 2023-04-07 09:10 | Outpatient (CLI) | payer MEDICARE, OTHER, SELFPAY ==
[2022-12-30 15:16] VITALS: BMI 25.4
[2023-04-07] VITALS (9 sets, daily range): BP systolic 127–189; BP diastolic 61–86; PULSE 50–70; RESP 15–20; TEMP 35.8; O2SAT 96–97
--- NOTE | 2023-04-07 09:11 | DI.RAD.S_ITS ---
PROCEDURE: PAIN SI JOINT INJECTION INDICATIONS: SACROILIAC DISORDER COMPARISON: [facility], CR, XR LUMBAR SPINE MIN 4V, 03/18/2023, 10:21. FINDINGS: On these intraprocedural images, there is a spinal needle seen overlying the inferior aspect of the right sacroiliac joint. Appropriate position of the tip of the needle was confirmed by injection of a small amount of iodinated contrast. IMPRESSION: Successful sacroiliac joint injection. Dictated by: Carlos Elkins M.D. on 04/07/2023 at 11:30 Approved by: Carlos Elkins M.D. on 04/07/2023 at 11:31
[2023-04-07] MEDS: MIDAZOLAM 2 MG/2 ML VIAL IV (09:57)
[2023-04-07] MEDS: BETAMETHASONE 30 MG/5 ML MDV 12 MG INJ (10:00)
[2023-04-07] MEDS: BUPIVACAINE 0.5% (PF) 10 ML VIAL 2 ML INJ (10:01)
[2023-04-07] MEDS: IOPAMIDOL 15 ML VIAL 3 ML INJ (10:01)
--- NOTE | 2023-04-07 10:09 | PM.PROC.IR.1 ---
Date/Time/Diagnoses Date of procedure: 04/07/23 Time of procedure: 10:10 Pre-procedure diagnosis: Sacroiliac joint pain/DJD Post-procedure diagnosis: same Procedure Notes Procedure: Fluoroscopically guided contrast controlled right sacroiliac joint injection Indications: Pipe is referred by Dr. Woodruff for treatment of right sacroiliac joint DJD Physician: Presley Baca Total Fluoroscopy time (seconds): 6 Total sedation minutes: 10 Complications: none Procedure in detail & Post-procedure care: DESCRIPTION OF PROCEDURE Fluoroscopically guided, contrast controlled right sacroiliac joint injection Following review of allergies and review of potential side effects and complications, including, but not necessarily limited to, infection, allergic reaction, local tissue breakdown, temporary as well as permanent nerve injury, paralysis, stroke and possible , the patient indicated that they understood and agreed to proceed. An informed consent was signed by the patient, witnessed by a nurse, and placed in the patient's chart. Additionally, other treatment options including modalities, medications, and physical therapy were reviewed with the patient. After review of previous anaesthesic history and IV conscious sedation the patient was deemed safe to proceed with today?s procedure with IV conscious sedation as ASA class II designation. Safety time-out was performed to confirm patient ID, procedure to be performed and site of procedure. IV sedation was accomplished with a combination of 2mg of Versed was administered by the RN after DO order, titrated to patient comfort during the course of the procedure while the patient remained responsive to all verbal commands In the prone position following sterile prep and drape of the pelvic region, the hyper lucency on in the inferior aspect of the sacroiliac joint was identified fluoroscopically the skin was anesthetized be a 25 gauge 1 eventual with approximately 2 cc of 1% lidocaine solution. At this point, a 22 gauge 3 in spinal needle was atraumatically introduced and advanced under fluoroscopic guidance into the inferior aspect of the right sacroiliac joint. Following negative aspiration, approximately 0.3cc of Isovue-300 was injected confirming intra-articular placement without vascular uptake. Radiographic data, including multiple fluoroscopic views of the pelvis, reveals a spinal needle in the sacroiliac joint hyper lucent zone. Subsequent view show flow contrast tear superiorly and inferiorly within the joint capsule without vascular intrathecal uptake. At this point a total of 1cc of 0.5% Marcaine was combined with 1cc of 6mg of betamethasone was injected without incident. The procedure tolerated the procedure well without signs or symptoms of complications prior to transfer to the recovery area continued monitoring without incident. The patient was then transferred to the recovery area with a bur observed for an appropriate time after the injection. The patient reverted a vas score of 7 prior to the procedure and post-procedure vas of 1. POSTOP INSTRUCTIONS The patient was provided with a pain like to continue to record the patient's response to the target specific procedure prior to the patient's follow-up visit with the referring physician. Additionally, specific post injection care instructions and a contact number to our office were provided if concerns arise regarding the possible complications associated with procedure are suspected.
== END 2023-04-07 10:39 | disposition home or self-care (01) ==
PROVIDERS: PCP Family Medicine; Referring Provider Physical Medicine & Rehabilitation; Visit Provider Physical Medicine & Rehabilitation
DX: M53.3 Sacrococcygeal disorders, not elsewhere classified (principal); M46.1 Sacroiliitis, not elsewhere classified
CPT/HCPCS: 27096; 77002; 99152; J0702; J2250

== ENCOUNTER → 2023-06-17 10:20 | Outpatient (CLI) | payer MEDICARE, OTHER, SELFPAY ==
[2022-12-30 15:16] VITALS: BMI 25.4
--- NOTE | 2023-06-17 | DI.MRI.S_ITS ---
PROCEDURE: MR HEAD/BRAIN WO CON INDICATIONS: PERSONAL HISTORY OF TIA TECHNIQUE: Non-contrast axial T1 spin echo, axial T2 fast spin echo, sagittal and axial FLAIR, coronal T2 fast spin echo, axial gradient echo, axial diffusion and ADC through the brain. COMPARISON: [facility], CT, CT ANGIO HEAD AND NECK, 03/07/2020, 14:14. [facility], CT, CT STROKE, 03/07/2020, 14:09. FINDINGS: Image quality: Diagnostic, with note made of motion artifact. CSF spaces: Ventricles appear symmetric in size and shape. Basal cisterns are patent. No extra-axial fluid collections. Brain: No intracranial bleeds or mass effects. There is cerebral volume loss for age. There are moderate to prominent (type 2/3) periventricular and deep white matter chronic small vessel ischemic changes. Brainstem appears normal. Diffusion-weighted images show no acute ischemic insults. A likely remote infarction can be seen involving the posterior lateral right frontal lobe, as on series 7, image 16. Normal intravascular flow voids are present. Relatively prominent perivascular spaces are noted. Skull and face: Calvarial bone marrow is normal in signal. Orbits are normal. Sinuses: Mild mucosal thickening can be seen throughout the paranasal sinuses. No abnormal fluid is seen within the mastoid air cells. IMPRESSION: No findings of acute or subacute infarction can be seen. 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 Underlying brain parenchymal volume loss and chronic small vessel ischemic change can be seen. Dictated by: Carlos Elkins M.D. on 06/17/2023 at 12:16 Approved by: Carlos Elkins M.D. on 06/17/2023 at 12:20
== END ==
PROVIDERS: Family Provider Family Medicine; PCP Family Medicine; Referring Provider Psychiatry & Neurology Neurology; Visit Provider Psychiatry & Neurology Neurology
DX: G31.84 Mild cognitive impairment of uncertain or unknown etiology (principal); R41.3 Other amnesia; H91.93 Unspecified hearing loss, bilateral; M47.816 Spondylosis without myelopathy or radiculopathy, lumbar region; M53.3 Sacrococcygeal disorders, not elsewhere classified; M54.12 Radiculopathy, cervical region; M35.3 Polymyalgia rheumatica; I49.3 Ventricular premature depolarization; M48.061 Spinal stenosis, lumbar region without neurogenic claudication; J45.20 Mild intermittent asthma, uncomplicated; Z86.73 Personal history of transient ischemic attack (TIA), and cerebral infarction without residual deficits; Z95.5 Presence of coronary angioplasty implant and graft; Z87.828 Personal history of other (healed) physical injury and trauma
CPT/HCPCS: 70551; 99215

== ENCOUNTER 2023-06-18 08:11 | Outpatient (RCR) | payer MEDICARE, OTHER, SELFPAY ==
[2022-12-30 15:16] VITALS: BMI 25.4
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
--- NOTE | 2023-06-18 11:59 | ST.OPPOC ---
Physical, Occupational & Speech Therapy At [facility] Visit Care Team Role Provider Type Ivory Woodruff MD Family Provider Non-Staff Primary Care Provider Address: [place], [address] Niru Dumont MD Attending Provider Non-Staff Referring Provider Address: [address] [place], [address] Speech Pathology Plan of Care Plan of Care Dates Evaluation Only Referring Provider Dr. Dumont Patient History Pt is an 82 year old male seen this date for cognitive-linguistic evaluation d/t memory loss. Pt present during evaluation. Pt was referred from his neurologist, Dr. Dumont. Pt saw neurologist on 05/18/23 for evaluation of Alzheimer's and progression of cognitive impairments for the last few years. Pt scored a 21/30 on MoCA during neurologist appointment. CT head without contrast on 11/07/20 indicated:No findings of acute infarct, acute hemorrhage or mass, mild volume loss and chronic small vessel related changes of the white matter, mild bilteral paranasal sinusitis. Pt with PMHx significant for: Elevated prostate specific antigen, GERD, HTN, Inguinal hernia, peritonitis , polymyalgia rheumatica. Pt reports Pt had a small stroke 2 years ago. Pt has been taking supplements from [employer]. Pt also takes donepezil, which neurologist increased from 5mg to 10 mg. Self-awareness of Cognitive- Predictive awareness (abl Communication Deficits Comment: Electronically Signed by: IZABELA Whitten 06/18/23 [id number] If you are in agreement with this Plan of Care, please return a signed and dated copy. I have reviewed this Plan of Care and certify that the skilled therapy services above are required to meet the patient?s needs. Physician Signature Date Printed Name and Credentials Clinical Instructor Signature Printed Name and Credentials
== END 2023-06-29 14:20 | disposition home or self-care (01) ==
LOC: SP 08:11
PROVIDERS: Family Provider Family Medicine; PCP Family Medicine; Referring Provider Psychiatry & Neurology Neurology; Visit Provider Psychiatry & Neurology Neurology
DX: R41.3 Other amnesia (principal); G31.84 Mild cognitive impairment of uncertain or unknown etiology; Z87.828 Personal history of other (healed) physical injury and trauma; H91.93 Unspecified hearing loss, bilateral; Z86.73 Personal history of transient ischemic attack (TIA), and cerebral infarction without residual deficits
CPT/HCPCS: 92523

== ENCOUNTER 2023-07-02 08:17 | Outpatient (CLI) | payer MEDICARE, OTHER, SELFPAY ==
[2022-12-30 15:16] VITALS: BMI 25.4
[2023-07-02] VITALS (10 sets, daily range): BP systolic 130–192; BP diastolic 7–77; PULSE 20–71; RESP 12–22; TEMP 36.4; O2SAT 95–99
--- NOTE | 2023-07-02 10:15 | DI.RAD.S_ITS ---
PROCEDURE: PAIN L/S FACET INJ/BLK 1ST SAMPSON INDICATIONS: SPONDYLOSIS COMPARISON: [facility], , PAIN L/S FACET INJ/BLK 1ST SAMPSON, 05/17/2020, 13:42. FINDINGS: Fluoroscopic spot filming was performed to verify placement of spinal needles on both sides at the L4 through S1 levels, as labeled on the films. Appropriate location of the needle tips was confirmed by injection of iodinated contrast. IMPRESSION: Intraprocedural examination demonstrating appropriate positions of the needles. Dictated by: Carlos Elkins M.D. on 07/02/2023 at 18:49 Approved by: Carlos Elkins M.D. on 07/02/2023 at 18:50
[2023-07-02] MEDS: MIDAZOLAM 2 MG/2 ML VIAL IV (10:40)
[2023-07-02] MEDS: iopamidoL 15 ML VIAL 3 ML INJ (10:46)
[2023-07-02] MEDS: BUPIVACAINE 0.5% (PF) 10 ML VIAL 2 ML INJ (10:47)
[2023-07-02] MEDS: LIDOCAINE 1% 20 ML INJ (10:47)
[2023-07-02] MEDS: MIDAZOLAM 2 MG/2 ML VIAL 1 MG IV (10:49)
--- NOTE | 2023-07-02 11:00 | PM.PROC.IR.1 ---
Date/Time/Diagnoses Date of procedure: 07/02/23 Time of procedure: 11:00 Pre-procedure diagnosis: 1. FACET ARTHROPATHY Post-procedure diagnosis: same Procedure Notes Procedure: 1. BILATERAL- L4, L5 and S1 DIAGNOSTIC MB BLOCKS with LA Anesthetic Indications: Pipe is referred by Dr. Woodruff for treatment of Bilateral Axial LBP. Physician: Presley Baca Total Fluoroscopy time (seconds): 8 Total sedation minutes: 15 Complications: none Procedure in detail & Post-procedure care: DESCRIPTION OF PROCEDURE Fluoroscopically guided, contrast-controlled bilateral L4, L5 and S1 medial branch blocks with 0.5cc of 0.5% Marcaine. Following review of allergy and review of potential side effects and complications, including, but not necessarily limited to, infection, allergic reaction, local tissue breakdown, nerve injury, paralysis, stroke and possible , the patient indicated that the patient understood and agreed to proceed. An informed consent document was signed by the patient, witnessed by a nurse, and placed in the patient's chart. After review of previous anaesthesic history and IV conscious sedation the patient was deemed safe to proceed with today's procedure with IV conscious sedation as ASA class II designation. Safety time-out was performed to confirm patient ID, procedure to be performed and site of procedure. IV sedation was accomplished with a combination of 3mg of Versed and 50mcg of Fentanyl was administered by the RN after DO order, titrated to patient comfort during the course of the procedure while the patient remained responsive to all verbal commands In the prone position, following sterile prep and drape of the lumbar region, the right L4, L5 and S1 anatomical location of the medial branch of the dorsal ramus was identified fluoroscopically. Subsequently an anesthetic skin wheal using 1% lidocaine solution was initiated at each of the anatomical spots. Subsequently then a 22-gauge 3.5-inch spinal needle was atraumatically introduced and advanced under fluoroscopic guidance at each of the corresponding sites at the right L4, L5 and S1 MB. After negative aspiration, 0.2cc of Isovue 200 was injected, confirming placement without vascular or intrathecal uptake. Subsequently then 0.5cc of 0.5% Marcaine solution was injected at each of the corresponding sites at the right L4, L5 and S1 medial branch locations. The identical procedure was replicated on the left. The patient tolerated the procedure well without signs or symptoms of complications prior to transfer to the recovery area continued monitoring without incident. Post-procedure, the patient was monitored initiating provocative activities to measure the amount of relief from block of the facetogenic pain. The patient reported a VAS of 7 prior to the procedure and a post-procedure VAS of 1. It has been a pleasure to assist in the diagnostic and therapeutic care of your patient. POST OP INSTRUCTIONS The patient was provided with a Pain Log to complete over the next several hours and subsequent days prior to the patient's follow up with the ordering physician. If the patient has training facilitator relief to the solution applied, then they may be a candidate for medial branch rhizotomy. The patient is aware, was provided, once again, with a Pain Log and will follow up with the referring physician for review and clinical correlation
== END 2023-07-02 11:20 | disposition home or self-care (01) ==
LOC: RAD 08:18
PROVIDERS: Family Provider Family Medicine; PCP Family Medicine; Referring Provider Physical Medicine & Rehabilitation; Visit Provider Physical Medicine & Rehabilitation
DX: M47.816 Spondylosis without myelopathy or radiculopathy, lumbar region (principal); M47.817 Spondylosis without myelopathy or radiculopathy, lumbosacral region
CPT/HCPCS: 64493; 64494; 99152; J2250

== ENCOUNTER 2023-08-20 14:11 | Observation (INO) | payer MEDICARE, OTHER, SELFPAY ==
[2022-12-30 15:16] VITALS: BMI 25.4
[2023-08-20] VITALS (9 sets, daily range): BP systolic 147–209; BP diastolic 46–83; PULSE 62–77; RESP 8–24; TEMP 36.1–36.6; O2SAT 75–99; BMI 22.4
--- NOTE | 2023-08-20 14:36 | ED.GENADULT ---
HPI - General Adult General Chief complaint: Abdominal Pain Stated complaint: upper abd pain, vomiting Time Seen by Provider: 08/20/23 14:31 Source: patient Mode of arrival: Ambulatory History of Present Illness HPI narrative: Patient is an 82-year-old male. Several years ago he had an incarcerated ventral hernia requiring bowel resection. Has had multiple surgeries. Last evening started to have some abdominal discomfort. He states that he threw up multiple times last evening. It did help his symptoms for a short period of time. Has had decrease in bowel movements. No urinary symptoms. No fevers. He states that he feels like there is a blockage in his bowel. Related Data Home Medications Medication Instructions Recorded Confirmed aspirin 81 mg tablet,delayed 81 mg PO DAILY ##0 01/30/18 06/17/23 release nitroglycerin 0.4 mg sublingual mg sublingual PRN chest pain 05/09/20 06/17/23 tablet carvedilol 6.25 mg tablet 6.25 mg PO BID 03/18/23 06/17/23 rosuvastatin 10 mg tablet 10 mg PO ONCE PM 03/18/23 06/17/23 donepezil 10 mg tablet 10 mg PO DAILY 06/17/23 08/20/23 Previous Rx's Medication Instructions Recorded docusate sodium 100 mg capsule 100 mg PO BID #40 caps 12/29/19 (Colace) diazepam 10 mg tablet (Valium) 10 mg PO .COMPLEX PRN 1-2 prior to 06/17/23 MRI and for possible steroid flare #10 tabs Allergies Allergy/AdvReac Type Severity Reaction Status Date / Time hyaluronate sodium, Allergy Mild Verified 08/20/23 14:22 stabilized HYLAN POLYMERS A & B Allergy Mild INFLAMMATION Uncoded 06/17/23 08:33 OF THE KNEES Review of Systems Constitutional Constitutional: Reports system reviewed and no additional complaints, except as documented Cardiovascular Cardiovascular: Reports system reviewed and no additional complaints, except as documented Respiratory Respiratory: Reports system reviewed and no additional complaints, except as documented Gastrointestinal Gastrointestinal: Reports system reviewed and no additional complaints, except as documented Integumentary/Breasts Skin/Breast: Reports system reviewed and no additional complaints, except as documented Neurologic Neurologic: Reports system reviewed and no additional complaints, except as documented Patient History Medical History Sacral dysfunction Pre-diabetes HTN (hypertension) Coronary artery disease Facet arthropathy, lumbar Foraminal stenosis of lumbar region Surgical History Hx of exploratory laparotomy (12/27/19) Hx of heart artery stent S/P small bowel resection Status post hernia repair Status post appendectomy Family History Mother Breast implant removal status Social History household members: spouse Smoking Status: Former smoker alcohol intake: never Smoking Status: Former smoker alcohol intake frequency: holidays/special occasions only Substance Use Type: does not use Exam Initial Vital Signs Initial Vital Signs: Vital Signs Temperature 97.9 F 08/20/23 14:12 Pulse Rate 77 08/20/23 14:12 Respiratory Rate 14 08/20/23 14:12 Blood Pressure 209/83 H 08/20/23 14:12 Pulse Oximetry 98 08/20/23 14:12 Oxygen Delivery Method Room Air 08/20/23 14:12 HENMT Head: normal to inspection and normocephalic Resp Effort & Inspection: normal respiratory effort Auscultation: clear to auscultation bilaterally Cardio Rate: regular rate Rhythm: regular rhythm GI Inspection: normal to inspection and non-distended Palpation: soft, No firm, No guarding and tender Skin General: no rashes or lesions noted Neuro General: patient alert, patient awake and moves all extremities Course Orders Ordered: ED Orders 08/20/23 14:21 EKG-12 Lead Stat 08/20/23 14:36 CT abdomen pelvis w con Stat 08/20/23 14:50 Complete Blood Count AUTO DIFF Stat Comprehensive Metabolic Panel Stat Lipase Stat 08/20/23 17:33 Education, smoking cessation ONGOING 08/20/23 17:45 Lactate (Lactic Acid) Stat 08/21/23 Complete Blood Count AUTO DIFF Routine Comprehensive Metabolic Panel Routine Hydromorphone HCl (Hydromorphone 0.5 Mg Inj) 0.25 mg IV Q2H PRN PRN Reason: Pain, Severe (7-10) Lactated Ringer's (Lactated Ringers) 1,000 mls @ 100 mls/hr IV CONT DIANN Ibuprofen (Ibuprofen 600 Mg Tablet) 600 mg PO Q6H PRN PRN Reason: Fever/Mild Pain (1-3) Naloxone HCl (Naloxone 0.4 Mg/Ml Vial) 0.2 mg IV Q2MIN PRN PRN Reason: Opiate Reversal Ondansetron HCl (Ondansetron 4 Mg/2 Ml Inj) 4 mg IV NOW PRN PRN Reason: Nausea And Vomiting Last Admin: 08/20/23 15:19 Dose: 4 mg Documented By: Vital Signs Vital signs: Vital Signs - 8 hr 08/20/23 14:12 08/20/23 14:18 08/20/23 14:20 Temperature 97.9 F Pulse Rate 77 77 Respiratory Rate 14 8 L Blood Pressure 209/83 H Pulse Oximetry 98 75 L 99 Oxygen Delivery Method Room Air 08/20/23 14:20 08/20/23 14:30 08/20/23 14:31 Temperature Pulse Rate 62 63 Respiratory Rate 18 20 Blood Pressure 209/83 H Pulse Oximetry 99 99 Oxygen Delivery Method 08/20/23 14:31 08/20/23 15:00 08/20/23 15:01 Temperature Pulse Rate 62 62 Respiratory Rate 20 24 Blood Pressure 167/72 H Pulse Oximetry 99 99 Oxygen Delivery Method 08/20/23 15:01 Temperature Pulse Rate Respiratory Rate Blood Pressure 160/68 H Pulse Oximetry Oxygen Delivery Method Medical Decision Making Lab Data Lab results reviewed: Yes I reviewed the patient's lab results. 08/20/23 14:50 08/20/23 14:50 Labs: Lab Results 08/20/23 Range/Units 14:50 WBC 7.2 (4.5-11.0) X10^3/uL RBC 4.47 L (4.5-5.9) X10^6/uL Hgb 14.2 (13.5-17.5) g/dL Hct 40.9 L (41-53) % MCV 91.5 (80-100) fL MCH 31.7 (26-34) PG MCHC 34.6 (30-36) % RDW 13.7 (11.6-14.8) % Plt Count 144 L (150-400) X10^3/uL Neut % (Auto) 70.6 (50-75) % Lymph % (Auto) 18.5 L (25-40) % [place] % (Auto) 9.0 (3-14) % Eos % (Auto) 1.3 L (2-4) % Baso % (Auto) 0.6 (0-2) % Neut # (Auto) 5100 (2807-3117) /uL Lymph # (Auto) 1300 (8230-0230) /uL [place] # (Auto) 600 (0-900) /uL Eos # (Auto) 100 (0-450) /uL Baso # (Auto) 0 (0-100) /uL Sodium 136 L (137-145) mmol/L Potassium 3.8 (3.4-5.1) mmol/L Chloride 104 (98-107) mmol/L Carbon Dioxide 25 (22-32) mmol/L BUN 21 H (9-20) mg/dL Creatinine 0.64 L (0.66-1.25) mg/dL Estimated GFR > 60 (>60) mL/min BUN/Creatinine Ratio 32.8 H (6-22) Glucose 88 (80-110) mg/dL Calcium 9.6 (8.4-10.2) mg/dL Total Bilirubin 1.1 (0.2-1.3) mg/dL AST 28 (17-59) IU/L ALT 21 (<50) IU/L Alkaline Phosphatase 45 (38-126) U/L Total Protein 7.2 (6.3-8.2) g/dL Albumin 4.4 (3.5-5.0) g/dL Globulin 2.8 (1.7-4.1) g/dL Albumin/Globulin Ratio 1.6 (1.0-2.8) Lipase 24 (23-300) U/L Urine Dip Bedside Urine Glucose Negative Bedside Urine Bilirubin + 1 Bedside Urine Ketone +/- 5 Urine Specific Newcomb 1.020 Bedside Urine Occult Blood - Negative Bedside Urine pH 6.0 Bedside Urine Protein - Negative Bedside Urine Urobilinogen - Negative Bedside Urine Nitrite - Negative Bedside Urine Leukocytes - Negative Esterase Point of care testing: Urine Dip Bedside Urine Glucose Negative Bedside Urine Bilirubin + 1 Bedside Urine Ketone +/- 5 Urine Specific Newcomb 1.020 Bedside Urine Occult Blood - Negative Bedside Urine pH 6.0 Bedside Urine Protein - Negative Bedside Urine Urobilinogen - Negative Bedside Urine Nitrite - Negative Bedside Urine Leukocytes - Negative Esterase Imaging Data CT scan - abdomen/pelvis: Radiologist's Impression: PROCEDURE: CT ABDOMEN PELVIS W CON INDICATIONS: Generalized abdominal pain, has had bowel resection and past TECHNIQUE: After the administration of intravenous contrast, axial sections acquired from the lung bases to the pubic symphysis. Coronal and sagittal reformats were performed. For radiation dose reduction, the following was used: automated exposure control, adjustment of mA and/or kV according to patient size. COMPARISON: [facility], CT, CT ABDOMEN PELVIS W CON, 02/17/2020, 11:15. FINDINGS: Image quality: Diagnostic. Lower Chest: No significant findings. ABDOMEN: Liver: No solid mass. Gallbladder: Gallbladder calculus is present. No evidence of wall thickening. Biliary ducts: No biliary dilation. Pancreas: No ductal dilation. Multiple calcifications within the pancreas, as before. Spleen: Size is within normal limits. Adrenal Glands: No adrenal nodules. Kidneys and Ureters: No hydronephrosis. No solid mass. No complex renal cystic lesion which requires follow up. Stomach and Bowel: Small hiatal hernia. Stomach is grossly unremarkable. There is a small bowel anastomosis within the right lower abdomen anteriorly with adjacent small bowel thickening. Mildly distended small bowel loops extends from the anastomosis into the right flank hernia. Multiple thickened loops of small bowel are present within the lower abdomen and pelvis. Colon is nondistended. Peritoneum: No abnormal intraperitoneal fluid. No free air. Ventral Wall: No significant ventral hernia. There is a right flank hernia as before containing multiple loops of small bowel, measuring roughly 10.5 cm anteroposterior. There is fat stranding within the hernia, suggestive of strangulation. Abdominal Nodes: No retroperitoneal or mesenteric adenopathy by size criteria. Vessels: Aorta and inferior vena cava are normal in size. PELVIS: Pelvic Organs: Unremarkable. Bladder: No bladder wall thickening, accounting for underdistention. Pelvic Nodes: No enlarged lymph nodes. Miscellaneous: No inguinal hernias are seen. Bones: No aggressive osseous abnormality. Grade 1 anterolisthesis of L5 on S1. Bilateral L5-S1 pars interarticularis defects. IMPRESSION: 1. Small bowel containing right flank hernia is present, with internal fat stranding and associated small bowel dilatation, suggestive of strangulation. Surgical consultation recommended. 2. Thickened small bowel loops, suggestive of infection, inflammation, or ischemia. 3. Small hiatal hernia. 4. Cholelithiasis. No evidence of cholecystitis. 5. Chronic pancreatitis. 6. 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 ECG Data Attestation: I personally reviewed and interpreted this ECG as follows: Interpretation: Sinus bradycardia Ventricular rate of 59 First-degree AV block with a IA interval 212 milliseconds Normal axis No ST T wave changes MDM Narrative Medical decision making narrative: I did discuss the case with Dr. Cervantes on-call for General surgery who reviewed the CT scan and evaluated the patient here in the emergency department. He stated that he did not think that the patient required any emergent surgery. Plan will be is to admit to the hospital for observation. There was no indication for antibiotics. Patient does not have a surgical abdomen. We will admit for further evaluation and treatment. Discharge Plan Departure Patient Disposition: Admitted as Observation Clinical Impression: Incisional hernia, Abdominal pain Admit Date/Time: 08/20/23 17:33 Admit Provider: Triston Cervantes
[2023-08-20 15:18] LABS: Alanine Aminotransferase 21 IU/L (<50); Albumin 4.4 g/dL (3.5-5.0); Albumin Globulin Ratio 1.6 (1.0-2.8); Alkaline Phosphatase 45 U/L (38-126); Aspartate Aminotransferase 28 IU/L (17-59); BUN Creatinine Ratio 32.8 (6-22); Bilirubin Total 1.1 mg/dL (0.2-1.3); Blood Urea Nitrogen 21 mg/dL (9-20); Calcium 9.6 mg/dL (8.4-10.2); Carbon Dioxide 25 mmol/L (22-32); Chloride 104 mmol/L (98-107); Estimated Glomerular Filt Rate > 60 mL/min (>60); Globulin 2.8 g/dL (1.7-4.1); Glucose 88 mg/dL (80-110); HEMOLYSIS < 15 (0-50); Lipase 24 U/L (23-300); Potassium 3.8 mmol/L (3.4-5.1); Sodium 136 mmol/L (137-145); Total Protein 7.2 g/dL (6.3-8.2)
[2023-08-20] MEDS: ONDANSETRON 4 MG/2 ML INJ IV (15:19)
[2023-08-20 15:20] LABS: Add Manual Diff / Slide Review NO; Basophils Absolute Auto 0 /uL (0-100); Basophils Percent Auto 0.6 % (0-2); Eosinophils Absolute Auto 100 /uL (0-450); Eosinophils Percent Auto 1.3 % (2-4); Hematocrit 40.9 % (41-53); Hemoglobin 14.2 g/dL (13.5-17.5); Lymphocytes Absolute Auto 1300 /uL (1100-4500); Lymphocytes Percent Auto 18.5 % (25-40); Mean Corpuscular HGB Conc 34.6 % (30-36); Mean Corpuscular Hemoglobin 31.7 PG (26-34); Mean Corpuscular Volume 91.5 fL (80-100); Monocytes Absolute Auto 600 /uL (0-900); Neutrophils Absolute Auto 5100 /uL (1500-7000); Neutrophils Percent Auto 70.6 % (50-75); Platelet Count 144 X10^3/uL (150-400); Red Blood Cell Count 4.47 X10^6/uL (4.5-5.9); Red Cell Distribution Width 13.7 % (11.6-14.8); White Blood Cell Count 7.2 X10^3/uL (4.5-11.0)
--- NOTE | 2023-08-20 17:23 | P.HP_ITS ---
History of Present Illness History of Present Illness Date Patient Seen: 08/20/23 Time Patient Seen: 17:23 Chief complaint: upper abd pain, vomiting Narrative: James is an 82-year-old man who presented to the ER from [place] today. He developed upper abdominal pain yesterday which was almost in his chest. EMS was called and they performed an EKG which looked normal in his pain resolved. After the left he started to feel nauseated and started vomiting. He vomited multiple times through the night and eventually started to feel better. This morning the decided come in to get checked in the ER even though he has been asymptomatic. He has had some liquids today with no nausea or vomiting. He does not recall passing any gas today but his points out that he has some short term memory loss. He had a CT scan in the ER today which showed a right flank hernia at the site of his old appendectomy scar containing loops of small bowel. My interpretation of the CT scan is that there are some dilated loops of bowel but they are not associated with the herniated bowel. There is a loop of mildly dilated bowel leading up to the anastomosis. James presented to this ER in 2019 for a small-bowel obstruction with a loop of ischemic bowel incarcerated through a flank hernia with at the site of the old appendectomy incision. The fascia was closed without mesh due to the bowel resection. He then developed a recurrent flank hernia and opted to go to [facility] for surgery. This was complicated by an aspiration event that kept him in the ICU for 4 days. He began noticing a bulge shortly after he recovered from that hospitalization. FORMERLY [facility] Medical History Sacral dysfunction Pre-diabetes HTN (hypertension) Coronary artery disease Facet arthropathy, lumbar Foraminal stenosis of lumbar region Surgical History Hx of exploratory laparotomy (12/27/19) Hx of heart artery stent S/P small bowel resection Status post hernia repair Status post appendectomy Family History Mother Breast implant removal status Social History household members: spouse Smoking Status: Former smoker alcohol intake: never Meds Home Medications and Allergies Home Medications Medication Instructions Recorded Confirmed Type aspirin 81 mg tablet,delayed 81 mg PO DAILY ##0 01/30/18 06/17/23 History release docusate sodium 100 mg capsule 100 mg PO BID #40 caps 12/29/19 06/17/23 Rx (Colace) nitroglycerin 0.4 mg sublingual mg sublingual PRN chest pain 05/09/20 06/17/23 History tablet carvedilol 6.25 mg tablet 6.25 mg PO BID 03/18/23 06/17/23 History rosuvastatin 10 mg tablet 10 mg PO ONCE PM 03/18/23 06/17/23 History diazepam 10 mg tablet (Valium) 10 mg PO .COMPLEX PRN 1-2 prior to 06/17/23 06/17/23 Rx MRI and for possible steroid flare #10 tabs donepezil 10 mg tablet 10 mg PO DAILY 06/17/23 06/17/23 History Allergies Allergy/AdvReac Type Severity Reaction Status Date / Time hyaluronate sodium, Allergy Mild Verified 08/20/23 14:22 stabilized HYLAN POLYMERS A & B Allergy Mild INFLAMMATION Uncoded 06/17/23 08:33 OF THE KNEES Exam Vital Signs (past 8 hours): - 08/20/23 14:12 Temperature 97.9 F Pulse Rate 77 Respiratory Rate 14 Blood Pressure 209/83 H Pulse Oximetry 98 Oxygen Delivery Method Room Air Oxygen Delivery Method Room Air Narrative Exam Narrative: Abdomen is soft nontender There is a palpable abnormality in the right flank under the old surgical scar which could represent a mesh enema There was no obviously incarcerated hernia in the right flank Objective Labs 08/20/23 14:50 08/20/23 14:50 Labs: Laboratory Results - last 24 hr 08/20/23 14:50 WBC 7.2 RBC 4.47 L Hgb 14.2 Hct 40.9 L MCV 91.5 MCH 31.7 MCHC 34.6 RDW 13.7 Plt Count 144 L Neut % (Auto) 70.6 Lymph % (Auto) 18.5 L [place] % (Auto) 9.0 Eos % (Auto) 1.3 L Baso % (Auto) 0.6 Neut # (Auto) 5100 Lymph # (Auto) 1300 [place] # (Auto) 600 Eos # (Auto) 100 Baso # (Auto) 0 Sodium 136 L Potassium 3.8 Chloride 104 Carbon Dioxide 25 BUN 21 H Creatinine 0.64 L Estimated GFR > 60 BUN/Creatinine Ratio 32.8 H Glucose 88 Calcium 9.6 Total Bilirubin 1.1 AST 28 ALT 21 Alkaline Phosphatase 45 Total Protein 7.2 Albumin 4.4 Globulin 2.8 Albumin/Globulin Ratio 1.6 Lipase 24 Assessment & Plan Assessment and plan (1) Hernia of flank: Status: Acute Plan I suspect James may have had a transient small bowel obstruction, possibly associated with the anastomosis but it seems to have resolved clinically. His physical exam is very benign tonight. I will ask the lab to add on a lactate to his labs and if it is normal I would admit him for observation and clear liquid diet. If he is feeling well in the morning his diet could be advanced and he could be discharged home. We did discuss repairing the hernia but I would recommend that we plan for an elective hernia repair with mesh at a later date.
[2023-08-20 18:03] LABS: Lactate (Lactic Acid) 0.9 mmol/L (0.7-2.1)
[2023-08-20] MEDS: LACTATED RINGERS 1,000 ML 100 ML IV (18:30)
--- NOTE | 2023-08-20 19:03 | PC.NURSE ---
Patient arrived at 1845 this evening. A&OX3, slightly forgetful per and patient he has mild dementia. He is pleasant and denies pain, n/v. He ambulates with steady gait. VSS, afebrile. Settled in room.IVF LR at 100ml/hr, bed alarm on. Admission assessment completed. Endorsed med reconciliation to oncoming RN.
--- NOTE | 2023-08-21 01:22 | PC.NURSE ---
shift superintendent caustic cresylate Patient's gave patient home medications. RN informed spouse to hospital policy and that it would be best if she took medications home. RN received and went over home medication list.
[2023-08-21 04:00] VITALS: BP 142/47; PULSE 55; RESP 17; TEMP 36.3; O2SAT 97
[2023-08-21 06:14] LABS: Add Manual Diff / Slide Review NO; Basophils Absolute Auto 100 /uL (0-100); Basophils Percent Auto 1.5 % (0-2); Eosinophils Absolute Auto 200 /uL (0-450); Eosinophils Percent Auto 5.2 % (2-4); Hematocrit 38.3 % (41-53); Hemoglobin 13.4 g/dL (13.5-17.5); Lymphocytes Absolute Auto 1400 /uL (1100-4500); Lymphocytes Percent Auto 32.8 % (25-40); Mean Corpuscular Hemoglobin 31.6 PG (26-34); Mean Corpuscular Volume 90.3 fL (80-100); Monocytes Absolute Auto 400 /uL (0-900); Monocytes Percent Auto 9.6 % (3-14); Neutrophils Absolute Auto 2100 /uL (1500-7000); Neutrophils Percent Auto 50.9 % (50-75); Platelet Count 128 X10^3/uL (150-400); Red Blood Cell Count 4.24 X10^6/uL (4.5-5.9); Red Cell Distribution Width 13.8 % (11.6-14.8); White Blood Cell Count 4.2 X10^3/uL (4.5-11.0)
[2023-08-21 06:24] LABS: Alanine Aminotransferase 19 IU/L (<50); Albumin 3.7 g/dL (3.5-5.0); Albumin Globulin Ratio 1.4 (1.0-2.8); Alkaline Phosphatase 38 U/L (38-126); Aspartate Aminotransferase 30 IU/L (17-59); BUN Creatinine Ratio 23.8 (6-22); Blood Urea Nitrogen 15 mg/dL (9-20); Calcium 9.3 mg/dL (8.4-10.2); Carbon Dioxide 26 mmol/L (22-32); Chloride 104 mmol/L (98-107); Estimated Glomerular Filt Rate > 60 mL/min (>60); Globulin 2.6 g/dL (1.7-4.1); Glucose 85 mg/dL (80-110); HEMOLYSIS < 15 (0-50); Potassium 4.2 mmol/L (3.4-5.1); Sodium 137 mmol/L (137-145); Total Protein 6.3 g/dL (6.3-8.2)
[2023-08-21 08:31] VITALS: BP 135/57; PULSE 60; RESP 19; TEMP 36.6; O2SAT 97
--- NOTE | 2023-08-21 09:31 | CM.DANOTE ---
Initial DCP Assessment Note Pt is a 82 yo male, resident of [facility], arrives with abd pain, vomiting. Patient stayed overnight for observation, diet being advanced today. Possible discharge home today if patient tolerates a diet. PCP: Ivory Woodruff Payer: LILLIAM/Pillo Reviewed chart, met w/patient and his at bedside, introduced self and role. Patient is indp and active, spouse reports mild dementia. No hx of HH or SNF reported. Patient is likely to discharge home later today. No barriers identified at this time to patient's safe discharge home w/family to assist; close outpatient f/u recommended. CM team will plan to follow closely in case any DC needs or concerns arise. KATIE Woodruff Discharge Planning/Care Management CM Discharge Assessment Start: 08/21/23 09:27 Freq: Status: Active Protocol: Document 08/21/23 09:28 ABEL (Rec: 08/21/23 09:31 ABEL [id number]) Discharge Planning Assessment Assigned Denture Contour Wire Specialist KATIE Braswell DPCORY/Assigned Designee Name Carolyn Lugo, spouse Contact Information [phone] Advance Directives? Yes: DPOA HC;ADV DIR Advance Directives on File Yes: believes documents have already been scanned in History Provided By Patient,Medical Record Prior Living Arrangements House Household Members spouse Type of transporation used prior to Drives own vehicle admit Independent with ADL's Yes Is patient alert and oriented? Yes: Mild Dementia per spouse Needs Assistance With Managing Medications,Home Chores / Shopping Barriers to Discharge No Comment Home w/spouse, possibly this afternoon Discharge Plan Home Transportation Arrangement Spouse Referrals Initiated None needed
[2023-08-21 09:39] VITALS: BP 135/70; PULSE 60
[2023-08-21] MEDS: carvediloL 3.125 MG TABLET 6.25 MG PO (09:39)
--- NOTE | 2023-08-21 13:58 | PC.NURSE ---
Patient is A&OX3 slightly forgetful with mild dementia, VSS, afebrile. He denies n/v, or abdominal pain. He advances his diet from clears to full liquids and tolerates that well. MD alerted and evaluating patient at bedside. He is advanced to a Regular diet at noon and tolerates lunch well without any c/o. He reports passing gas, Abdomen is soft, and he denies overt pain. He is cleared to discharge home today with and follow up with his primary provider in two weeks. He and his verbalize understanding of plan of discharge, and are eager to discharge home today. They acknowledge no new changes in medications and are escorted to private vehicle for discharge home today at 1400.
--- NOTE | 2023-08-21 18:53 | PM.DS.1 ---
History of Present Illness History of Present Illness Date Patient Seen: 08/21/23 Chief complaint: upper abd pain, vomiting Narrative: 82-year-old man with a history of multiple abdominal surgeries who presented with abdominal pain and emesis. CT abdomen pelvis demonstrated a known right flank hernia containing small bowel suggestive of small-bowel obstruction. Discharge Providers Provider Date of admission: 08/20/23 17:33 Discharge Date: 08/21/23 Primary care physician: Ivory Woodruff MD Discharge provider: Hipolito Montenegro MD Summary Hospital Course Discharge Diagnosis: Acute abdominal pain Hospital Course: His abdominal pain and nausea resolved spontaneously. His diet was gradually advanced. He tolerated regular diet and was ambulatory prior to discharge home. Exam Vital Signs (past 8 hours): Oxygen Delivery Method Room Air Oxygen Flow Rate 0 Objective Labs 08/21/23 05:55 08/21/23 05:55 Labs: Laboratory Results - last 24 hr 08/21/23 05:55 WBC 4.2 L RBC 4.24 L Hgb 13.4 L Hct 38.3 L MCV 90.3 MCH 31.6 MCHC 35.0 RDW 13.8 Plt Count 128 L Neut % (Auto) 50.9 Lymph % (Auto) 32.8 [place] % (Auto) 9.6 Eos % (Auto) 5.2 H Baso % (Auto) 1.5 Neut # (Auto) 2100 Lymph # (Auto) 1400 [place] # (Auto) 400 Eos # (Auto) 200 Baso # (Auto) 100 Sodium 137 Potassium 4.2 Chloride 104 Carbon Dioxide 26 BUN 15 Creatinine 0.63 L Estimated GFR > 60 BUN/Creatinine Ratio 23.8 H Glucose 85 Calcium 9.3 Total Bilirubin 1.0 AST 30 ALT 19 Alkaline Phosphatase 38 Total Protein 6.3 Albumin 3.7 Globulin 2.6 Albumin/Globulin Ratio 1.4 ON LICENSE OF [facility] Medical History Sacral dysfunction Pre-diabetes HTN (hypertension) Coronary artery disease Facet arthropathy, lumbar Foraminal stenosis of lumbar region Surgical History Hx of exploratory laparotomy (12/27/19) Hx of heart artery stent S/P small bowel resection Status post hernia repair Status post appendectomy Family History Mother Breast implant removal status Social History household members: spouse Smoking Status: Former smoker alcohol intake: never Discharge Plan Discharge Plan Patient Disposition: Home Discharge orders & Medications Prescriptions: No Action aspirin 81 mg Tablet,Delayed Release (Dr/Ec) 81 mg PO DAILY Qty: 0 Patient Comments: stopped taking 02/27 r/t upcoming surgery docusate sodium [Colace] 100 mg capsule 100 mg PO BID Qty: 40 0RF carvedilol 6.25 mg tablet 6.25 mg PO BID rosuvastatin 10 mg tablet 10 mg PO ONCE PM nitroglycerin 0.4 mg tablet, sublingual 0.4 mg sublingual PRN PRN (Reason: chest pain) donepezil 10 mg tablet 10 mg PO DAILY diazepam [Valium] 10 mg tablet 10 mg PO .COMPLEX MDD 3 tabs PRN (Reason: 1-2 prior to MRI and for possible steroid flare) Qty: 10 0RF Rx Instructions: 10 mg PO PRN; Follow up/Referrals: Ivory Woodruff MD [Primary Care Provider] - Visit Report/Discharge Packet Stand Alone Forms: Patient Portal/API, Stroke Signs & Symptoms Discharge Data Primary Care Provider: Ivory Woodruff Attending Provider: Triston Cervantes Admit Date/Time: 08/20/23 17:33 Quality VTE Deep Vein Thrombosis/Pulmonary Embolism Present on Admission: No
== END 2023-08-21 14:00 | disposition home or self-care (01) ==
LOC: ED 17:33 → AC 17:34
PROVIDERS: Admitting Provider Surgery; Emergency Provider Emergency Medicine; Family Provider Family Medicine; PCP Family Medicine; Referring Provider Emergency Medicine; Visit Provider Surgery
DX: K45.8 Other specified abdominal hernia without obstruction or gangrene (principal); R11.2 Nausea with vomiting, unspecified
CPT/HCPCS: 36415; 74177; 80053; 81003; 83605; 83690; 85025; 93005; 96374; 99221; 99238; 99284; 99285; G0378; J2405; Q9967

== ENCOUNTER 2023-11-26 08:31 | Outpatient (CLI) | payer MEDICARE, OTHER, SELFPAY ==
[2023-08-20 18:54] VITALS: BMI 22.4
[2023-11-26] VITALS (8 sets, daily range): BP systolic 91–179; BP diastolic 47–87; PULSE 58–67; RESP 12–20; TEMP 36.1; O2SAT 95–99
--- NOTE | 2023-11-26 09:15 | DI.RAD.S_ITS ---
PROCEDURE: PAIN L/S FACET INJ/BLK 1ST SAMPSON INDICATIONS: Bilateral L4-L5 and S1 medial branch blocks SA COMPARISON: [facility], , PAIN L/S FACET INJ/BLK 1ST SAMPSON, 07/02/2023, 11:45. FINDINGS: Fluoroscopic spot filming was performed to verify placement of spinal needles at the bilateral L4, L5 and S1 level(s), as labeled on the films. Appropriate location(s) of the needle tip(s) was confirmed by injection of iodinated contrast. IMPRESSION: Access needles placed for bilateral L4, L5 and S1 medial branch blocks. Dictated by: Cris Gottlieb MD, PhD on 11/26/2023 at 10:40 Approved by: Cris Gottlieb MD, PhD on 11/26/2023 at 10:43
[2023-11-26] MEDS: MIDAZOLAM 2 MG/2 ML VIAL IV (09:52)
[2023-11-26] MEDS: LIDOCAINE 1% 20 ML 5 ML INJ (09:53)
[2023-11-26] MEDS: LIDOCAINE 2% INJ SDV 5ML 5 ML INJ ×2 (09:54→10:01)
[2023-11-26] MEDS: iopamidoL 15 ML VIAL 3 ML INJ (09:54)
--- NOTE | 2023-11-26 10:11 | PM.PROC.IR.1 ---
Date/Time/Diagnoses Date of procedure: 11/26/23 Time of procedure: 10:11 Pre-procedure diagnosis: 1. FACET ARTHROPATHY Post-procedure diagnosis: same Procedure Notes Procedure: 1. BILATERAL- L4, L5 and S1 DIAGNOSTIC MB BLOCKS with SA Anesthetic Indications: Pipe is referred by Dr. Galan for treatment of Bilateral Axial LBP. Physician: Presley Baca Total Fluoroscopy time (seconds): 18 Total sedation minutes: 12 Complications: none Procedure in detail & Post-procedure care: DESCRIPTION OF PROCEDURE Fluoroscopically guided, contrast-controlled bilateral L4, L5 and S1 medial branch blocks with 0.5cc of 2% Lidocaine. Following review of allergy and review of potential side effects and complications, including, but not necessarily limited to, infection, allergic reaction, local tissue breakdown, nerve injury, paralysis, stroke and possible , the patient indicated that the patient understood and agreed to proceed. An informed consent document was signed by the patient, witnessed by a nurse, and placed in the patient's chart. After review of previous anaesthesic history and IV conscious sedation the patient was deemed safe to proceed with today's procedure with IV conscious sedation as ASA class II designation. Safety time-out was performed to confirm patient ID, procedure to be performed and site of procedure. IV sedation was accomplished with a combination of 2mg of Versed was administered by the RN after DO order, titrated to patient comfort during the course of the procedure while the patient remained responsive to all verbal commands In the prone position, following sterile prep and drape of the lumbar region, the right L4, L5 and S1 anatomical location of the medial branch of the dorsal ramus was identified fluoroscopically. Subsequently an anesthetic skin wheal using 1% lidocaine solution was initiated at each of the anatomical spots. Subsequently then a 22-gauge 3.5-inch spinal needle was atraumatically introduced and advanced under fluoroscopic guidance at each of the corresponding sites at the right L4, L5 and S1 MB. After negative aspiration, 0.2cc of Isovue 200 was injected, confirming placement without vascular or intrathecal uptake. Subsequently then 0.5cc of 2% Lidocaine solution was injected at each of the corresponding sites at the right L4, L5 and S1 medial branch locations. The identical procedure was replicated on the left. The patient tolerated the procedure well without signs or symptoms of complications prior to transfer to the recovery area continued monitoring without incident. Post-procedure, the patient was monitored initiating provocative activities to measure the amount of relief from block of the facetogenic pain. The patient reported a VAS of 7 prior to the procedure and a post-procedure VAS of 1. It has been a pleasure to assist in the diagnostic and therapeutic care of your patient. POST OP INSTRUCTIONS The patient was provided with a Pain Log to complete over the next several hours and subsequent days prior to the patient's follow up with the ordering physician. If the patient has electrical checkout mechanic relief to the solution applied, then they may be a candidate for medial branch rhizotomy. The patient is aware, was provided, once again, with a Pain Log and will follow up with the referring physician for review and clinical correlation
--- NOTE | 2023-11-26 10:26 | PC.NURSE ---
Patient unsteady and disoriented pre-procedure. 10 mg total of Valium pre-medication per pt and report from pre-post RNs. 2 mg IV Versed given per orders during procedure. Patient remained stable but noted SBP drop from 190 to 91. Recycled and the BP timed out X 3. Pt remained awake during entirety. This RN suggested we utlize gurney transport to avoid further drops in BP. Dr. Baca declined and proceeded to stand patient. See repeat vital signs. Care transferred to Faviola RN and Gaye RN in pre-post.
--- NOTE | 2023-11-26 11:49 | PC.NURSE ---
Late entry, pre-med valium, patient unsteady on feet. This RN pulled patient from the waiting area today at 0845. Patient's reported that she gave 5mg Valium PO at 0730, and a second 5mg Valium PO at 0800. Patient stated that he had no pain and that he felt woosy. Patient stood and became unsteady on his feet and listed to the Left side. This RN steadied patient and asked patient to sit back down with . This RN got a wheelchair for the patient to transport back to the pre procedure room to prep for his procedure. Patient with some dementia per medical record and his Yessenia stating that he has dementia. Patient forgetful and repeating many times that he felt loopy while in pre procedure, denying pain. Patient needing 1 person assist to use the restroom prior to his procedure.
--- NOTE | 2023-11-26 12:04 | PC.NURSE ---
1025- Patient needed to use the restroom. He stood up from the recliner and it was determined that he was too unsteady to walk so he was taken to the restroom via wheelchair and had 2 person assist while using the restroom.
--- NOTE | 2023-11-26 12:06 | PC.NURSE ---
1045 - Patient stood up again from the recliner to reassess his mobility. Patient is still too unsteady on his feet to take steps forward. patient sat back down in the recliner. Patient's was called by this nurse to let her know that he was doing fine, but he needed more time for the sedation to wear off before he would be safe to leave. She wss informed it would be about 30 minutes before he would be ready to go. She stated understanding. Dr. Baca notified. 1110 - Patient needed to use the restroom again. Patient was still unsteady on his feet. He was taken to the restroom, but only needed one person assist. Dr. Baca notified. 1135 - Patient's mobility reassessed by standing the patient. It was determined that he was stable on his feet and he could be discharged. Dr. Baca aware. 1140 - On discharge Patient's informed of his status by Rani Zapata RN. It was recommended that they go straight home.
== END 2023-11-26 11:40 | disposition home or self-care (01) ==
PROVIDERS: Family Provider Family Medicine; PCP Internal Medicine; Referring Provider Physical Medicine & Rehabilitation; Visit Provider Physical Medicine & Rehabilitation
DX: M47.816 Spondylosis without myelopathy or radiculopathy, lumbar region (principal); M47.817 Spondylosis without myelopathy or radiculopathy, lumbosacral region
CPT/HCPCS: 64493; 64494; 99152; J2250

== ENCOUNTER 2024-03-24 09:06 | Outpatient (CLI) | payer MEDICARE, OTHER, SELFPAY ==
[2023-08-20 18:54] VITALS: BMI 22.4
[2024-03-24] VITALS (11 sets, daily range): BP systolic 163–204; BP diastolic 72–90; PULSE 58–67; RESP 16–21; TEMP 36.3; O2SAT 96–100
--- NOTE | 2024-03-24 11:00 | DI.RAD.S_ITS ---
PROCEDURE: PAIN L/S MED/LAT N RFA BILAT INDICATIONS: Bilateral L4-L5 and S1 medial branch RFA COMPARISON: None. FINDINGS: Fluoroscopic spot filming was performed to verify placement of spinal needles at the L4 through S1 level(s), as labeled on the films. Appropriate location(s) of the needle tip(s) was confirmed by injection of iodinated contrast. IMPRESSION: Needle and contrast placement overlying L4 through S1. Dictated by: Kellie Harding M.D. on 03/25/2024 at 13:41 Approved by: Kellie Harding M.D. on 03/25/2024 at 13:42
[2024-03-24] MEDS: MIDAZOLAM 2 MG/2 ML VIAL 1 MG IV ×2 (11:21→11:27)
[2024-03-24] MEDS: BUPIVACAINE 0.5% (PF) 10 ML VIAL 5 ML INJ (11:26)
[2024-03-24] MEDS: LIDOCAINE 1% 20 ML 5 ML INJ (11:26)
--- NOTE | 2024-03-24 12:10 | P.PCN_ITS ---
Date/Time/Diagnoses Date of procedure: 03/24/24 Time of procedure: 12:10 Pre-procedure diagnosis: 1. RECALCITRANT FACET ARTHROPATHY Post-procedure diagnosis: same Procedure Notes Procedure: 1. BILATERAL L4 AND L5 MEDIAL BRANCH RADIOFREQUENCY NEUROTOMY AND S1 DORSAL RAMUS BRANCH RADIOFREQUENCY NEUROTOMY Indications: The patient is referred by for treatment of facet arthropathy. Physician: Presley Baca Total Fluoroscopy time (seconds): 16 Total sedation minutes: 37 Complications: none Procedure in detail & Post-procedure care: DESCRIPTION OF PROCEDURE Bilateral L4 and L5 medial branch radiofrequency neurotomy and bilateral S1 dorsal ramus radiofrequency neurotomy under fluoroscopy with conscious sedation. The patient is well known to this clinic having undergone previous facet injections with good but temporary relief. The patient has experienced appropriate, concordant relief with previous facet and median branch blocks but the patient's pain has been recalcitrant to further conservative measures. Therefore, based upon the patient's relief and persistent symptoms, the patient is considered an appropriate candidate for facet rhizotomy. All of the patient's questions regarding the risks versus benefits of the procedure, including, but not limited to, bleeding, infection, temporary as well as lasting nerve injury, paralysis, stroke, and , as well treatment alternatives were answered to satisfaction. After obtaining informed consent, denial of pertinent drug allergies, as well as being made aware of the potential risks of bleeding, infection, spinal cord trauma, paralysis, temporary and permanent nerve damage, seizure, stroke, and possible , the patient was brought to the fluoroscopy suite and positioned prone on the fluoroscopy table. The lumbar region was prepped in usual sterile fashion and covered with a fenestrated drape in the usual sterile fashion. Appropriate monitors applied including pulse oximeter, pulse, and blood pressure for regular monitoring throughout the procedure. After review of previous anaesthesic history and IV conscious sedation the patient was deemed safe to proceed with today's procedure with IV conscious sedation as ASA class II designation. Safety time-out was performed to confirm patient ID, procedure to be performed and site of procedure. IV sedation was accomplished with a combination of 3mg of Versed administered by the RN after DO order, titrated to patient comfort during the course of the procedure while the patient remained responsive to all verbal commands. After local infiltration using 1% lidocaine, under fluoroscopic guidance, a 10- cm RF insulated needle with a 10-mm active tip was positioned parallel to the junction of the right sacral ala and the superior articulating process where the S1 dorsal ramus resides. Needle placement was confirmed with motor stimulation of .5v on the right which produced local stimulation without radicular component. The stimulation was then increased to 2v with, once again, only local multifidus stimulation without radicular component. The needle was then removed and the identical procedure was performed along the length of the right L5 medial branch with motor stimulation at .7v on the right. The identical procedure was once again performed along the length of the right L4 medial branch with motor stimulation of .5v on the right. The medial branches were then anesthetised with 0.5% Marcaine. This was then followed by two discreet lesions performed at 80 degrees Celsius for 90 seconds each. The identical procedure was repeated on the left. The patient tolerated the procedure well without signs or symptoms of complications prior to transfer to the recovery area continued monitoring without incident. The patient was then transferred to the recovery area where they were observed for an appropriate period of time after the injection. The patient reported a VAS score of 9 prior to the procedure and a post-procedure VAS of 1. POST OP INSTRUCTIONS The patient was provided a Pain Log to continue to record the patient's response to the target-specific procedure prior to the patient's follow-up visit with the referring physician. Additionally, specific post-injection care instructions and a contact number to our office were provided if concerns arise regarding possible complications associated with the procedure are suspected.
== END 2024-03-24 12:14 | disposition home or self-care (01) ==
LOC: RAD 09:08
PROVIDERS: Family Provider Family Medicine; PCP Internal Medicine; Referring Provider Physical Medicine & Rehabilitation; Visit Provider Physical Medicine & Rehabilitation
DX: M47.816 Spondylosis without myelopathy or radiculopathy, lumbar region (principal); M48.061 Spinal stenosis, lumbar region without neurogenic claudication
CPT/HCPCS: 64635; 64636; 93010; 99152; 99153; J2250

== ENCOUNTER 2024-03-24 15:11 | Emergency (ER) | payer MEDICARE, OTHER, SELFPAY ==
[2023-08-20 18:54] VITALS: BMI 22.4
[2024-03-24 15:14] VITALS: BP 186/81; PULSE 64; RESP 18; TEMP 36.6; O2SAT 96; BMI 23.3
--- NOTE | 2024-03-24 15:33 | DI.RAD.S_ITS ---
PROCEDURE: XR CHEST 2V INDICATIONS: productive cough/blood TECHNIQUE: 2 views of the chest were acquired. COMPARISON: [facility], CR, XR CHEST 2V, 11/19/2020, 12:25. FINDINGS: Surgical changes and devices: None. Lungs and pleura: Lungs are clear. No pleural effusions or pneumothorax. Mediastinum: Mediastinal contours are normal. Heart size is normal. Bones and chest wall: No suspicious bony abnormalities. Soft tissues appear unremarkable. IMPRESSION: No acute cardiopulmonary abnormality is seen. Dictated by: Fermin Garcia M.D. on 03/24/2024 at 16:15 Approved by: Fermin Garcia M.D. on 03/24/2024 at 16:17
[2024-03-24 16:19] LABS: Influenza A - CEPHEID Flu A NEGATIVE (NEGATIVE); Influenza B - CEPHEID Flu B NEGATIVE (NEGATIVE); Respiratory Syncytial Virus Negative (Negative)
[2024-03-24 16:32] LABS: COVID-19 CEPHEID 4-PLEX PCR Negative (Negative)
--- NOTE | 2024-03-24 17:38 | ED_ITS ---
HPI - General Adult <Dale Carbone MD - Last Filed: 03/24/24 21:24> General Chief complaint: Hypertension Stated complaint: coughing up blood, HBP Time Seen by Provider: 03/24/24 16:51 Source: patient Mode of arrival: Ambulatory History of Present Illness HPI narrative: 83-year-old male without history of blood thinner medications has been intermittently having some cough, tonight productive of bright red blood-tinged sputum/mucus, he does not believe he has had any recent nosebleed, no sore throat symptoms, no chest pain. No history of lung cancer, tuberculosis, fungal infections of the lungs, blood clots to the lungs. No leg or arm pain or swelling symptoms. No injury or trauma to the chest or trunk. No exposure to persons with similar symptoms. Related Data Home Medications Medication Instructions Recorded Confirmed aspirin 81 mg tablet,delayed 81 mg PO DAILY ##0 01/30/18 12/17/23 release nitroglycerin 0.4 mg sublingual 0.4 mg sublingual PRN PRN chest 05/09/20 12/17/23 tablet pain carvedilol 6.25 mg tablet 6.25 mg PO BID 03/18/23 12/17/23 rosuvastatin 10 mg tablet 10 mg PO ONCE PM 03/18/23 12/17/23 donepezil 10 mg tablet 10 mg PO DAILY 06/17/23 12/17/23 memantine 5 mg tablet 5 mg PO DAILY 10/12/23 12/17/23 Previous Rx's Medication Instructions Recorded docusate sodium 100 mg capsule 100 mg PO BID #40 caps 12/29/19 (Colace) tramadol 50 mg tablet 50 mg PO TID PRN pain #14 tabs 12/17/23 doxycycline hyclate 100 mg capsule 100 mg PO BID #20 caps 03/24/24 Allergies Allergy/AdvReac Type Severity Reaction Status Date / Time hyaluronate sodium, Allergy Mild Verified 12/17/23 14:33 stabilized HYLAN POLYMERS A & B Allergy Mild INFLAMMATION Uncoded 12/17/23 14:33 OF THE KNEES Review of Systems <Dale Carbone MD - Last Filed: 03/24/24 21:24> Review of Systems Narrative: see HPI Patient History <Dale Carbone MD - Last Filed: 03/24/24 21:24> Medical History Dementia Sacral dysfunction Pre-diabetes HTN (hypertension) Coronary artery disease Facet arthropathy, lumbar Foraminal stenosis of lumbar region Surgical History Hx of exploratory laparotomy (12/27/19) Hx of heart artery stent S/P small bowel resection Status post hernia repair Status post appendectomy Family History Mother Breast implant removal status Social History household members: spouse Smoking Status: Former smoker alcohol intake: never Smoking Status: Former smoker alcohol intake frequency: holidays/special occasions only Substance Use Type: does not use Exam <Dale Carbone MD - Last Filed: 03/24/24 21:24> Narrative Exam Narrative: GENERAL: Well-developed patient, in mild distress. HEAD: Atraumatic. Normocephalic. EYES: Pupils equal round and reactive. Extraocular motions intact. No scleral icterus. No injection or drainage. ENT: Nose without bleeding, purulent drainage. Throat without erythema, tonsillar hypertrophy or exudate. Airway patent. NECK: Trachea midline. Non tender CARDIOVASCULAR: Regular rate and rhythm without murmurs, gallops, or rubs. RESPIRATORY: Clear to auscultation. Breath sounds equal bilaterally. No wheezes, rales, or rhonchi. GASTROINTESTINAL: Abdomen soft, non-tender, nondistended. EXTREMITIES: No edema or joint tenderness. BACK: Nontender without deformity or crepitance. No flank tenderness. NEURO: AOx3. Nonfocal neuro exam SKIN: No rash or erythema of visible areas Initial Vital Signs Initial Vital Signs: Vital Signs Temperature 97.8 F 03/24/24 15:14 Pulse Rate 64 03/24/24 15:14 Respiratory Rate 18 03/24/24 15:14 Blood Pressure 186/81 H 03/24/24 15:14 Pulse Oximetry 96 03/24/24 15:14 Oxygen Delivery Method Room Air 03/24/24 15:14 <Samantha Kaur DO - Last Filed: 03/25/24 00:45> Initial Vital Signs Initial Vital Signs: Vital Signs Temperature 97.8 F 03/24/24 15:14 Pulse Rate 64 03/24/24 15:14 Respiratory Rate 18 03/24/24 15:14 Blood Pressure 186/81 H 03/24/24 15:14 Pulse Oximetry 96 03/24/24 15:14 Oxygen Delivery Method Room Air 03/24/24 15:14 Course <Dale Carbone MD - Last Filed: 03/24/24 21:24> Orders Ordered: ED Orders 03/24/24 17:37 CT angio chest PE protocol Stat 03/24/24 17:39 EKG-12 Lead Stat 03/24/24 17:40 CBC Auto Diff [Complete Blood Count AUTO DIFF] Stat CMP [Comprehensive Metabolic Panel] Stat Prothrombin Time INR Stat 03/24/24 18:40 BNP [NT-proBNP (BNP-Adult 18+)] Stat Trop I [Troponin I] Stat Vital Signs Vital signs: Vital Signs - 8 hr 03/24/24 18:00 03/24/24 19:32 03/24/24 20:00 Pulse Rate 57 L 62 62 Respiratory Rate 18 Blood Pressure 183/75 H 193/82 H 173/74 H Pulse Oximetry 96 96 97 Oxygen Delivery Method Room Air Room Air <Samantha Kaur DO - Last Filed: 03/25/24 00:45> Orders Ordered: ED Orders 03/24/24 17:37 CT angio chest PE protocol Stat 03/24/24 17:39 EKG-12 Lead Stat 03/24/24 17:40 CBC Auto Diff [Complete Blood Count AUTO DIFF] Stat CMP [Comprehensive Metabolic Panel] Stat Prothrombin Time INR Stat 03/24/24 18:40 BNP [NT-proBNP (BNP-Adult 18+)] Stat Trop I [Troponin I] Stat Vital Signs Vital signs: Vital Signs - 8 hr 03/24/24 18:00 03/24/24 19:32 03/24/24 20:00 Pulse Rate 57 L 62 62 Respiratory Rate 18 Blood Pressure 183/75 H 193/82 H 173/74 H Pulse Oximetry 96 96 97 Oxygen Delivery Method Room Air Room Air Medical Decision Making <Dale Carbone MD - Last Filed: 03/24/24 21:24> Lab Data Lab results reviewed: Yes I reviewed the patient's lab results. 03/24/24 17:40 03/24/24 17:40 Labs: Lab Results 03/24/24 03/24/24 03/24/24 Range/Units 15:35 15:35 15:35 WBC (4.5-11.0) X10^3/uL RBC (4.5-5.9) X10^6/uL Hgb (13.5-17.5) g/dL Hct (41-53) % MCV (80-100) fL MCH (26-34) PG MCHC (30-36) % RDW (11.6-14.8) % Plt Count (150-400) X10^3/uL Neut % (Auto) (50-75) % Lymph % (Auto) (25-40) % [place] % (Auto) (3-14) % Eos % (Auto) (2-4) % Baso % (Auto) (0-2) % Neut # (Auto) (5823-2754) /uL Lymph # (Auto) (7900-3760) /uL [place] # (Auto) (0-900) /uL Eos # (Auto) (0-450) /uL Baso # (Auto) (0-100) /uL PT (9.4-12.5) SECONDS INR (0.9-1.3) Sodium (137-145) mmol/L Potassium (3.4-5.1) mmol/L Chloride (98-107) mmol/L Carbon Dioxide (22-32) mmol/L BUN (9-20) mg/dL Creatinine (0.66-1.25) mg/dL Estimated GFR (>60) mL/min BUN/Creatinine Ratio (6-22) Glucose (80-110) mg/dL Calcium (8.4-10.2) mg/dL Total Bilirubin (0.2-1.3) mg/dL AST (17-59) IU/L ALT (<50) IU/L Alkaline Phosphatase (38-126) U/L Troponin I (0.01-0.034) ng/mL NT-Pro-B Natriuret Pep (<450) pg/mL Total Protein (6.3-8.2) g/dL Albumin (3.5-5.0) g/dL Globulin (1.7-4.1) g/dL Albumin/Globulin Ratio (1.0-2.8) Chlamy pneumoniae PCR Not detected (Not Detect) Adenovirus (PCR) Not detected (Not Detect) B.parapertussis DNA PCR Not detected (Not Detecte) Coronavirus OC43 (PCR) Not detected (Not Detect) Coronavirus HKU1 (PCR) Not detected (Not Detect) Coronavirus 229E (PCR) Not detected (Not Detect) SARS-CoV-2 (PCR) Negative Not detected (Negative) Coronavirus NL63 (PCR) Not detected (Not Detect) Human Metapneumovir PCR Not detected (Not Detect) Influenza A (RT-PCR) Flu a negative (NEGATIVE) Influenza Type A (PCR) Not detected (Not Detect) Influenza B (RT-PCR) Flu b negative (NEGATIVE) Influenza Type B (PCR) Not detected (Not Detect) M. pneumoniae (PCR) Not detected (Not Detect) Parainfluenza 1 (PCR) Not detected (Not Detect) Parainfluenza 2 (PCR) Not detected (Not Detect) Parainfluenza 3 (PCR) Not detected (Not Detect) Parainfluenza 4 (PCR) Not detected (Not Detect) RSV (PCR) Negative Not detected (Negative) Entero/Rhino (PCR) Not detected (Not Detect) 03/24/24 03/24/24 Range/Units 17:40 18:40 WBC 5.4 (4.5-11.0) X10^3/uL RBC 4.16 L (4.5-5.9) X10^6/uL Hgb 13.2 L (13.5-17.5) g/dL Hct 38.6 L (41-53) % MCV 92.8 (80-100) fL MCH 31.6 (26-34) PG MCHC 34.1 (30-36) % RDW 13.9 (11.6-14.8) % Plt Count 130 L (150-400) X10^3/uL Neut % (Auto) 63.5 (50-75) % Lymph % (Auto) 21.3 L (25-40) % [place] % (Auto) 9.3 (3-14) % Eos % (Auto) 4.9 H (2-4) % Baso % (Auto) 1.0 (0-2) % Neut # (Auto) 3400 (9018-2142) /uL Lymph # (Auto) 1200 (4188-5994) /uL [place] # (Auto) 500 (0-900) /uL Eos # (Auto) 300 (0-450) /uL Baso # (Auto) 100 (0-100) /uL PT 13.1 H (9.4-12.5) SECONDS INR 1.1 (0.9-1.3) Sodium 139 (137-145) mmol/L Potassium 4.2 (3.4-5.1) mmol/L Chloride 106 (98-107) mmol/L Carbon Dioxide 25 (22-32) mmol/L BUN 20 (9-20) mg/dL Creatinine 0.86 (0.66-1.25) mg/dL Estimated GFR > 60 (>60) mL/min BUN/Creatinine Ratio 23.3 H (6-22) Glucose 93 (80-110) mg/dL Calcium 9.3 (8.4-10.2) mg/dL Total Bilirubin 1.2 (0.2-1.3) mg/dL AST 30 (17-59) IU/L ALT 19 (<50) IU/L Alkaline Phosphatase 50 (38-126) U/L Troponin I 0.023 (0.01-0.034) ng/mL NT-Pro-B Natriuret Pep 522 H (<450) pg/mL Total Protein 6.9 (6.3-8.2) g/dL Albumin 4.5 (3.5-5.0) g/dL Globulin 2.4 (1.7-4.1) g/dL Albumin/Globulin Ratio 1.9 (1.0-2.8) Chlamy pneumoniae PCR (Not Detect) Adenovirus (PCR) (Not Detect) B.parapertussis DNA PCR (Not Detecte) Coronavirus OC43 (PCR) (Not Detect) Coronavirus HKU1 (PCR) (Not Detect) Coronavirus 229E (PCR) (Not Detect) SARS-CoV-2 (PCR) (Negative) Coronavirus NL63 (PCR) (Not Detect) Human Metapneumovir PCR (Not Detect) Influenza A (RT-PCR) (NEGATIVE) Influenza Type A (PCR) (Not Detect) Influenza B (RT-PCR) (NEGATIVE) Influenza Type B (PCR) (Not Detect) M. pneumoniae (PCR) (Not Detect) Parainfluenza 1 (PCR) (Not Detect) Parainfluenza 2 (PCR) (Not Detect) Parainfluenza 3 (PCR) (Not Detect) Parainfluenza 4 (PCR) (Not Detect) RSV (PCR) (Negative) Entero/Rhino (PCR) (Not Detect) Imaging Data Chest x-ray: Radiologist's Impression: [address] [address] XRay Report Signed Patient: Pipe Lugo MR#: [id number] : 1940 Acct:[id number] Age/Sex: 83 / M Date of Service: 03/24/24 Loc: ED Accession Number: [id number] Procedure: XR chest 2V Ordering Provider: Dale Carbone MD PROCEDURE: XR CHEST 2V INDICATIONS: productive cough/blood TECHNIQUE: 2 views of the chest were acquired. COMPARISON: Merged With [facility], , XR CHEST 2V, 11/19/2020, 12:25. FINDINGS: Surgical changes and devices: None. Lungs and pleura: Lungs are clear. No pleural effusions or pneumothorax. Mediastinum: Mediastinal contours are normal. Heart size is normal. Bones and chest wall: No suspicious bony abnormalities. Soft tissues appear unremarkable. IMPRESSION: No acute cardiopulmonary abnormality is seen. Dictated by: Fermin Garcia M.D. on 03/24/2024 at 16:15 Approved by: Fermin Garcia M.D. on 03/24/2024 at 16:17 ECG Data Attestation: I personally reviewed and interpreted this ECG as follows: Interpretation: Normal sinus rhythm with rate of 62. No obvious ST segment elevation or depression changes. T-wave inversion lead 3. Upright T-waves noted another contiguous inferior leads. First-degree AV block. GA 216, QRS 98, QTC 436. MDM Narrative Medical decision making narrative: 83-year-old male with blood-tinged sputum, no trauma, no anticoagulation. No fever. Intermittent recent couple of days cough. Respiratory swab panel was negative. Chest x-ray unremarkable. EKG unremarkable. Screening labs unremarkable. GFR favorable. CT chest angiogram ordered. CTA chest study ordered, results pending. Signed out to Dr. Natasha Kaur patient signed out to me by Dr. Carbone seen evaluated patient myself. He reports small amount of hemoptysis over the last few days. He says it is very small amount. He denies any significant shortness of breath chest pain palpitations. Blood work has been reviewed CBC does not show any significant leukocytosis or anemia, WBC is 5.4 hemoglobin 13.2 hematocrit 38.6 platelets 130 stable from prior labs in August INR 1.1 PT 13.1 CMP no electrolyte abnormality or NASEEM, sodium is 139 potassium 4.2 chloride 106 bicarb 25 BUN 20 creatinine 0.8 Imaging has been reviewed chest x-ray does not show any acute cardiopulmonary process CT angio no evidence of mass or pulmonary embolism there is some granulomatous disease Differential diagnosis includes pulmonary embolism congestive heart failure tuberculosis pulmonary mass At this time patient is not hypoxic blood work is overall reassuring respiratory panel is negative. CT does not show pulmonary embolism but does show some scattered granulomatous disease. I think reasonable to start on antibiotics. Patient has no evidence of sepsis and overall appears nontoxic <Samantha Kaur, DO - Last Filed: 03/25/24 00:45> Lab Data Labs: Lab Results 03/24/24 03/24/24 03/24/24 Range/Units 15:35 15:35 15:35 WBC (4.5-11.0) X10^3/uL RBC (4.5-5.9) X10^6/uL Hgb (13.5-17.5) g/dL Hct (41-53) % MCV (80-100) fL MCH (26-34) PG MCHC (30-36) % RDW (11.6-14.8) % Plt Count (150-400) X10^3/uL Neut % (Auto) (50-75) % Lymph % (Auto) (25-40) % [place] % (Auto) (3-14) % Eos % (Auto) (2-4) % Baso % (Auto) (0-2) % Neut # (Auto) (4270-8516) /uL Lymph # (Auto) (3670-6592) /uL [place] # (Auto) (0-900) /uL Eos # (Auto) (0-450) /uL Baso # (Auto) (0-100) /uL PT (9.4-12.5) SECONDS INR (0.9-1.3) Sodium (137-145) mmol/L Potassium (3.4-5.1) mmol/L Chloride (98-107) mmol/L Carbon Dioxide (22-32) mmol/L BUN (9-20) mg/dL Creatinine (0.66-1.25) mg/dL Estimated GFR (>60) mL/min BUN/Creatinine Ratio (6-22) Glucose (80-110) mg/dL Calcium (8.4-10.2) mg/dL Total Bilirubin (0.2-1.3) mg/dL AST (17-59) IU/L ALT (<50) IU/L Alkaline Phosphatase (38-126) U/L Troponin I (0.01-0.034) ng/mL NT-Pro-B Natriuret Pep (<450) pg/mL Total Protein (6.3-8.2) g/dL Albumin (3.5-5.0) g/dL Globulin (1.7-4.1) g/dL Albumin/Globulin Ratio (1.0-2.8) Chlamy pneumoniae PCR Not detected (Not Detect) Adenovirus (PCR) Not detected (Not Detect) B.parapertussis DNA PCR Not detected (Not Detecte) Coronavirus OC43 (PCR) Not detected (Not Detect) Coronavirus HKU1 (PCR) Not detected (Not Detect) Coronavirus 229E (PCR) Not detected (Not Detect) SARS-CoV-2 (PCR) Negative Not detected (Negative) Coronavirus NL63 (PCR) Not detected (Not Detect) Human Metapneumovir PCR Not detected (Not Detect) Influenza A (RT-PCR) Flu a negative (NEGATIVE) Influenza Type A (PCR) Not detected (Not Detect) Influenza B (RT-PCR) Flu b negative (NEGATIVE) Influenza Type B (PCR) Not detected (Not Detect) M. pneumoniae (PCR) Not detected (Not Detect) Parainfluenza 1 (PCR) Not detected (Not Detect) Parainfluenza 2 (PCR) Not detected (Not Detect) Parainfluenza 3 (PCR) Not detected (Not Detect) Parainfluenza 4 (PCR) Not detected (Not Detect) RSV (PCR) Negative Not detected (Negative) Entero/Rhino (PCR) Not detected (Not Detect) 03/24/24 03/24/24 Range/Units 17:40 18:40 WBC 5.4 (4.5-11.0) X10^3/uL RBC 4.16 L (4.5-5.9) X10^6/uL Hgb 13.2 L (13.5-17.5) g/dL Hct 38.6 L (41-53) % MCV 92.8 (80-100) fL MCH 31.6 (26-34) PG MCHC 34.1 (30-36) % RDW 13.9 (11.6-14.8) % Plt Count 130 L (150-400) X10^3/uL Neut % (Auto) 63.5 (50-75) % Lymph % (Auto) 21.3 L (25-40) % [place] % (Auto) 9.3 (3-14) % Eos % (Auto) 4.9 H (2-4) % Baso % (Auto) 1.0 (0-2) % Neut # (Auto) 3400 (4248-5268) /uL Lymph # (Auto) 1200 (6624-9891) /uL [place] # (Auto) 500 (0-900) /uL Eos # (Auto) 300 (0-450) /uL Baso # (Auto) 100 (0-100) /uL PT 13.1 H (9.4-12.5) SECONDS INR 1.1 (0.9-1.3) Sodium 139 (137-145) mmol/L Potassium 4.2 (3.4-5.1) mmol/L Chloride 106 (98-107) mmol/L Carbon Dioxide 25 (22-32) mmol/L BUN 20 (9-20) mg/dL Creatinine 0.86 (0.66-1.25) mg/dL Estimated GFR > 60 (>60) mL/min BUN/Creatinine Ratio 23.3 H (6-22) Glucose 93 (80-110) mg/dL Calcium 9.3 (8.4-10.2) mg/dL Total Bilirubin 1.2 (0.2-1.3) mg/dL AST 30 (17-59) IU/L ALT 19 (<50) IU/L Alkaline Phosphatase 50 (38-126) U/L Troponin I 0.023 (0.01-0.034) ng/mL NT-Pro-B Natriuret Pep 522 H (<450) pg/mL Total Protein 6.9 (6.3-8.2) g/dL Albumin 4.5 (3.5-5.0) g/dL Globulin 2.4 (1.7-4.1) g/dL Albumin/Globulin Ratio 1.9 (1.0-2.8) Chlamy pneumoniae PCR (Not Detect) Adenovirus (PCR) (Not Detect) B.parapertussis DNA PCR (Not Detecte) Coronavirus OC43 (PCR) (Not Detect) Coronavirus HKU1 (PCR) (Not Detect) Coronavirus 229E (PCR) (Not Detect) SARS-CoV-2 (PCR) (Negative) Coronavirus NL63 (PCR) (Not Detect) Human Metapneumovir PCR (Not Detect) Influenza A (RT-PCR) (NEGATIVE) Influenza Type A (PCR) (Not Detect) Influenza B (RT-PCR) (NEGATIVE) Influenza Type B (PCR) (Not Detect) M. pneumoniae (PCR) (Not Detect) Parainfluenza 1 (PCR) (Not Detect) Parainfluenza 2 (PCR) (Not Detect) Parainfluenza 3 (PCR) (Not Detect) Parainfluenza 4 (PCR) (Not Detect) RSV (PCR) (Negative) Entero/Rhino (PCR) (Not Detect) Imaging Data CT scan - chest: Radiologist's Impression: PROCEDURE: CT ANGIO CHEST PE PROTOCOL INDICATIONS: hemoptysis TECHNIQUE: After the administration of intravenous contrast, 2 mm thick sections acquired from the pulmonary apices to the posterior costophrenic angles. 3-dimensional maximum intensity projection (MIP) coronal and sagittal reformats were then acquired through the thorax. For radiation dose reduction, the following was used: automated exposure control, adjustment of mA and/or kV according to patient size. COMPARISON: None. FINDINGS: Image quality: Diagnostic. Pulmonary arteries: Pulmonary arteries are normal in size, and demonstrate no intraluminal filling defects to suggest central pulmonary embolism. Lower Neck: No enlarged lymph nodes. Thyroid: No thyroid nodules which require sonographic follow up, per consensus guidelines. Axillae: No enlarged lymph nodes. Chest Wall: Unremarkable. Bones: Unremarkable. Lungs and Pleura: No pneumothorax or pleural effusions. Biapical pleuroparenchymal scarring. Linear atelectasis versus scarring in the right lower lobe. Scattered punctate calcified granulomata. No suspicious pulmonary nodules. Heart: Heart size is normal. Severe coronary artery calcifications. No pericardial effusion. Reflux of contrast into the IVC. Thoracic Vessels: No aortic aneurysm. Atherosclerotic vascular calcifications. Mediastinum and [place]: No enlarged lymph nodes. Esophagus: No wall thickening. No hiatal hernia. Upper Abdomen: Cholelithiasis. Multiple pancreatic calcifications, suggestive of chronic pancreatitis. IMPRESSION: No pulmonary embolus. No acute cardiopulmonary process. Severe coronary artery calcifications. Reflux of contrast from the right atrium into the IVC. This may be related to injection versus elevated right heart pressures. Recommend clinical correlation. Scattered pulmonary granulomata, may represent sequela of prior granulomatous infection. Dictated by: Artemio Luther M.D. on 03/24/2024 at 19:53 MDM Narrative Medical decision making narrative: 83-year-old male with blood-tinged sputum, no trauma, no anticoagulation. No fever. Intermittent recent couple of days cough. Respiratory swab panel was negative. Chest x-ray unremarkable. EKG unremarkable. Screening labs unremarkable. GFR favorable. CT chest angiogram ordered. CTA chest study ordered, results pending. Signed out to Dr. Natasha Kaur patient signed out to me by Dr. Carbone seen evaluated patient myself. He reports small amount of hemoptysis over the last few days. He says it is very small amount. He denies any significant shortness of breath chest pain palpitations. Blood work has been reviewed CBC does not show any significant leukocytosis or anemia, WBC is 5.4 hemoglobin 13.2 hematocrit 38.6 platelets 130 stable from prior labs in August INR 1.1 PT 13.1 CMP no electrolyte abnormality or NASEEM, sodium is 139 potassium 4.2 chloride 106 bicarb 25 BUN 20 creatinine 0.8 Imaging has been reviewed chest x-ray does not show any acute cardiopulmonary process CT angio no evidence of mass or pulmonary embolism there is some granulomatous disease Differential diagnosis includes pulmonary embolism congestive heart failure tuberculosis pulmonary mass At this time patient is not hypoxic blood work is overall reassuring respiratory panel is negative. CT does not show pulmonary embolism but does show some scattered granulomatous disease. I think reasonable to start on antibiotics. Patient has no evidence of sepsis and overall appears nontoxic Discharge Plan Departure Patient Disposition: Home Clinical Impression: Atypical pneumonia Instructions: Atypical Pneumonia Activity Restrictions/Additional Instructions: *You have been diagnosed with atypical pneumonia *What to do: At this time you might have a mild pneumonia. Hopefully antibiotics help. I do anticipate that you may still cough of scant amount of blood. However if you are having increasing amounts of blood more than half a cup to a cup and more frequently than you need to return to the ED. you may require further workup as an outpatient as well. You do have some cardiac calcifications (which could mean that you have heart disease) however not the cause of your symptoms today *Continue to take medications as directed Doxycycline 100 mg twice a day for 10 days *Follow up with your primary care provider in 2-3 days or call [phone] *Return to ER if you should have increasing amount of blood weakness chest pain shortness of breath or any new, worsening or concerning symptoms Prescriptions: New doxycycline hyclate 100 mg capsule 100 mg PO BID Qty: 20 0RF No Action aspirin 81 mg Tablet,Delayed Release (Dr/Ec) 81 mg PO DAILY Qty: 0 Patient Comments: stopped taking 02/27 r/t upcoming surgery docusate sodium [Colace] 100 mg capsule 100 mg PO BID Qty: 40 0RF carvedilol 6.25 mg tablet 6.25 mg PO BID rosuvastatin 10 mg tablet 10 mg PO ONCE PM nitroglycerin 0.4 mg tablet, sublingual 0.4 mg sublingual PRN PRN (Reason: chest pain) donepezil 10 mg tablet 10 mg PO DAILY memantine 5 mg tablet 5 mg PO DAILY tramadol 50 mg tablet 50 mg PO TID PRN (Reason: pain) Qty: 14 1RF Referrals: Presley Galan MD [Primary Care Provider] - Stand Alone Forms: Patient Portal/API
--- NOTE | 2024-03-24 17:45 | EKG_ITS ---
[place] [id number] [place] [id number] Test Date: 2024-03-24 Pat Name: Pipe Lugo Department: [facility] Room: Gender: Male Guide Travel: [place] : 1940 Requested By: Order Number: [id number] Reading MD: Shaquille Aguero MD Measurements Intervals [place] Rate: 62 P: -6 NH: 216 QRS: -18 QRSD: 98 T: 7 QT: 430 QTc: 436 Interpretive Statements Sinus rhythm with 1st degree AV block Minimal voltage criteria for LVH, may be normal variant ( R in aVL ) Electronically Signed On 03-25-2024 12:52:14 PDT by Shaquille Aguero MD
[2024-03-24 17:53] LABS: Add Manual Diff / Slide Review NO; Basophils Absolute Auto 100 /uL (0-100); Eosinophils Absolute Auto 300 /uL (0-450); Eosinophils Percent Auto 4.9 % (2-4); Hematocrit 38.6 % (41-53); Hemoglobin 13.2 g/dL (13.5-17.5); Lymphocytes Absolute Auto 1200 /uL (1100-4500); Lymphocytes Percent Auto 21.3 % (25-40); Mean Corpuscular HGB Conc 34.1 % (30-36); Mean Corpuscular Hemoglobin 31.6 PG (26-34); Mean Corpuscular Volume 92.8 fL (80-100); Monocytes Absolute Auto 500 /uL (0-900); Monocytes Percent Auto 9.3 % (3-14); Neutrophils Absolute Auto 3400 /uL (1500-7000); Neutrophils Percent Auto 63.5 % (50-75); Platelet Count 130 X10^3/uL (150-400); Red Blood Cell Count 4.16 X10^6/uL (4.5-5.9); Red Cell Distribution Width 13.9 % (11.6-14.8); White Blood Cell Count 5.4 X10^3/uL (4.5-11.0)
[2024-03-24 18:00] VITALS: BP 183/75; PULSE 57; O2SAT 96
[2024-03-24 18:04] LABS: INR 1.1 (0.9-1.3); Prothrombin Time 13.1 SECONDS (9.4-12.5)
[2024-03-24 18:08] LABS: Alanine Aminotransferase 19 IU/L (<50); Albumin 4.5 g/dL (3.5-5.0); Albumin Globulin Ratio 1.9 (1.0-2.8); Alkaline Phosphatase 50 U/L (38-126); Aspartate Aminotransferase 30 IU/L (17-59); BUN Creatinine Ratio 23.3 (6-22); Bilirubin Total 1.2 mg/dL (0.2-1.3); Blood Urea Nitrogen 20 mg/dL (9-20); Calcium 9.3 mg/dL (8.4-10.2); Carbon Dioxide 25 mmol/L (22-32); Chloride 106 mmol/L (98-107); Estimated Glomerular Filt Rate > 60 mL/min (>60); Globulin 2.4 g/dL (1.7-4.1); Glucose 93 mg/dL (80-110); HEMOLYSIS < 15 (0-50); Potassium 4.2 mmol/L (3.4-5.1); Sodium 139 mmol/L (137-145); Total Protein 6.9 g/dL (6.3-8.2)
[2024-03-24 18:51] LABS: Adenovirus Not Detected (Not Detect); B. parapertussis Not Detected (Not Detecte); Bordetella pertussis Not Detected (Not Detect); Chlamydophila pneumoniae Not Detected (Not Detect); Coronavirus 229E Not Detected (Not Detect); Coronavirus HKU1 Not Detected (Not Detect); Coronavirus NL 63 Not Detected (Not Detect); Coronavirus OC43 Not Detected (Not Detect); Human Metapneumovirus Not Detected (Not Detect); Human Rhinovirus/Enterovirus Not Detected (Not Detect); Influenza A Not Detected (Not Detect); Influenza B Not Detected (Not Detect); Mycoplasma pneumoniae Not Detected (Not Detect); Parainfluenza Virus 1 Not Detected (Not Detect); Parainfluenza Virus 2 Not Detected (Not Detect); Parainfluenza Virus 3 Not Detected (Not Detect); Parainfluenza Virus 4 Not Detected (Not Detect); Respiratory Syncytial Virus Not Detected (Not Detect); SARS- CoV-2 Not Detected (Not Detecte)
[2024-03-24 19:32] VITALS: BP 193/82; PULSE 62; O2SAT 96
[2024-03-24 19:53] LABS: NT-proBNP (BNP-Adult 18+) 522 pg/mL (<450); Troponin I 0.023 ng/mL (0.01-0.034)
[2024-03-24 20:00] VITALS: BP 173/74; PULSE 62; RESP 18; O2SAT 97
== END 2024-03-24 20:27 | disposition home or self-care (01) ==
PROVIDERS: Emergency Medicine; Emergency Provider Emergency Medicine; Family Provider Family Medicine; PCP Internal Medicine
DX: J18.9 Pneumonia, unspecified organism (principal); R79.89 Other specified abnormal findings of blood chemistry; I44.0 Atrioventricular block, first degree; Z11.52 Encounter for screening for COVID-19
CPT/HCPCS: 0241U; 36415; 64635; 64636; 71046; 71275; 80053; 83880; 84484; 85025; 85610; 87633; 93005; 93010; 99152; 99153; 99283; 99284; J2250; Q9967

== ENCOUNTER → 2024-05-23 11:25 | Outpatient (CLI) | payer MEDICARE, OTHER, SELFPAY ==
[2023-08-20 18:54] VITALS: BMI 22.4
--- NOTE | 2024-05-23 11:27 | DI.RAD.S_ITS ---
PROCEDURE: XR SHOULDER LT MIN 2V INDICATIONS: left impingement TECHNIQUE: Three views of the shoulder were acquired. COMPARISON: None. FINDINGS: Bones: There are no osseous abnormalities. Acromioclavicular and glenohumeral joints: Moderate glenohumeral degeneration appreciated. The acromioclavicular joint is normal. Soft tissues: No soft tissue swelling, calcification or mass. IMPRESSION: Moderate glenohumeral degeneration. Dictated by: Shaquille Griffin M.D. on 05/24/2024 at 9:52 Approved by: Shaquille Griffin M.D. on 05/24/2024 at 9:52
== END ==
PROVIDERS: Family Provider Family Medicine; PCP Internal Medicine; Referring Provider Physical Medicine & Rehabilitation; Visit Provider Physical Medicine & Rehabilitation
DX: M75.42 Impingement syndrome of left shoulder (principal); M19.012 Primary osteoarthritis, left shoulder
CPT/HCPCS: 73030

== ENCOUNTER → 2025-04-04 14:09 | Outpatient (CLI) | payer MEDICARE, OTHER, SELFPAY ==
[2023-08-20 18:54] VITALS: BMI 22.4
[2025-04-04 15:08] LABS: Add Manual Diff / Slide Review NO; Hematocrit 42.0 % (41-53); Hemoglobin 14.5 g/dL (13.5-17.5); Lymphocytes Absolute Auto 1000 /uL (1100-4500); Mean Corpuscular HGB Conc 34.6 % (30-36); Mean Corpuscular Hemoglobin 31.4 PG (26-34); Mean Corpuscular Volume 90.7 fL (80-100); Platelet Count 168 X10^3/uL (150-400)
[2025-04-04 15:22] LABS: Hemoglobin A1C% w Est Avg Glu 5.4 % (4.0-6.0)
[2025-04-04 15:26] LABS: Alanine Aminotransferase 14 IU/L (<50); Albumin 4.5 g/dL (3.5-5.0); Albumin Globulin Ratio 1.7 (1.0-2.8); Alkaline Phosphatase 54 U/L (38-126); Blood Urea Nitrogen 22 mg/dL (9-20); Calcium 9.4 mg/dL (8.4-10.2); Carbon Dioxide 25 mmol/L (22-32); Chloride 101 mmol/L (98-107); Cholesterol 202 mg/dL (140-199); Estimated Glomerular Filt Rate > 60 mL/min (>60); Globulin 2.7 g/dL (1.7-4.1); Glucose 86 mg/dL (70-99); HDL Cholesterol 38 mg/dL (40-60); HEMOLYSIS 32 (0-50); Potassium 4.9 mmol/L (3.4-5.1); Sodium 136 mmol/L (137-145); Total Protein 7.2 g/dL (6.3-8.2); Triglycerides 378 mg/dL (35-150)
[2025-04-07 05:39] LABS: Insulin Level Total 54.4 uIU/mL (2.6-24.9)
== END ==
PROVIDERS: Family Provider Family Medicine; PCP Internal Medicine; Referring Provider Internal Medicine; Visit Provider Internal Medicine
DX: E78.00 Pure hypercholesterolemia, unspecified (principal); R73.01 Impaired fasting glucose; I10 Essential (primary) hypertension
CPT/HCPCS: 36415; 80053; 80061; 83036; 83525; 85025